=== PATIENT | male | born 1965 | race Caucasian/White ===

== ENCOUNTER 2023-08-05 12:19 | Outpatient (OUT) | payer OTHER, SELFPAY ==
--- NOTE | 2023-08-05 12:26 | XR_ITS ---
The [address] [address] Patient Name: TRAY MEZA MRN: [id number] date: 1965 Sex: M Assigned Patient Location: [facility] Current Patient Location: [facility] Accession/Order Number: [id number] Exam Date: 08/05/2023 12:35 Report Date: 08/05/2023 12:58 At the request of: SYED WILLINGHAM Procedure: XR lumbar spine 2-3V EXAMINATION: XR thoracic spine 3V, XR lumbar spine 2-3V HISTORY: compression fracture of thoracic vertebrae COMPARISON: MRI 09/08/2022 FINDINGS: BONES: Stable anterior wedging T8-T9 and T12 vertebral bodies. Moderate diffuse degenerative spondylosis and facet osteoarthropathy throughout the thoracic and lumbar spine. No new fracture or spondylolisthesis DISC SPACES: Normal. No significant disc height narrowing, subluxation, or endplate abnormality. PARASPINOUS: Negative. No paraspinous abnormality is seen. OTHER: Moderate atherosclerosis. XR/XR lumbar spine 2-3V IMPRESSION: Moderate degenerative changes Stable wedge compression fractures of multiple thoracic vertebral bodies Electronically authenticated by: ROLY JAMA Date: 08/05/2023 12:58
--- NOTE | 2023-08-05 12:26 | XR_ITS ---
The [address] [address] Patient Name: TRAY MEZA MRN: [id number] date: 1965 Sex: M Assigned Patient Location: [facility] Current Patient Location: [facility] Accession/Order Number: [id number] Exam Date: 08/05/2023 12:35 Report Date: 08/05/2023 12:58 At the request of: SYED WILLINGHAM Procedure: XR thoracic spine 3V EXAMINATION: XR thoracic spine 3V, XR lumbar spine 2-3V HISTORY: compression fracture of thoracic vertebrae COMPARISON: MRI 09/08/2022 FINDINGS: BONES: Stable anterior wedging T8-T9 and T12 vertebral bodies. Moderate diffuse degenerative spondylosis and facet osteoarthropathy throughout the thoracic and lumbar spine. No new fracture or spondylolisthesis DISC SPACES: Normal. No significant disc height narrowing, subluxation, or endplate abnormality. PARASPINOUS: Negative. No paraspinous abnormality is seen. OTHER: Moderate atherosclerosis. XR/XR thoracic spine 3V IMPRESSION: Moderate degenerative changes Stable wedge compression fractures of multiple thoracic vertebral bodies Electronically authenticated by: ROLY JAMA Date: 08/05/2023 12:58
== END 2023-08-05 12:20 | disposition home or self-care (01) ==
PROVIDERS: PCP Family Medicine; Visit Provider Family Medicine
DX: S22.000A Wedge compression fracture of unspecified thoracic vertebra, initial encounter for closed fracture (principal); M47.814 Spondylosis without myelopathy or radiculopathy, thoracic region; M51.34 Other intervertebral disc degeneration, thoracic region; M51.36 Other intervertebral disc degeneration, lumbar region
CPT/HCPCS: 72072; 72100

== ENCOUNTER 2023-10-10 16:35 | Outpatient (REF) | payer OTHER, SELFPAY ==
--- OUTSIDE RECORDS SUMMARY | 2023-10-10 16:57 | XMS_ITS | CCD ---
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 Name Role Phone Syed Willingham Primary Care Unavailable Vicente Morel Attending Unavailable Vicente Morel Admitting Unavailable HOY ., DR LYNCH Primary Care Unavailable LAKSHMIPATHY ., NARENDRANATH Admitting Ana vailable LAKSHMIPATHY ., NARHARPREET Consulting Ana vailable LAKSHMIPATHY ., NARHARPREET Attending Ana vailable HOY ., DR LYNCH Primary Care Unavailable HOY ., DR LYNCH Consulting Unavailable HOY ., DR LYNCH Attending Unavailable HOY ., DR LYNCH Admitting Unavailable ASHFIELD, DR ROLY Rothman Consulting Unavailable HOY ., DR LYNCH Primary Care Unavailable HOY ., DR LYNCH Consulting Unavailable HOY ., DR LYNCH Attending Unavailable HOY ., DR LYNCH Admitting Unavailable ZieberAydin Consulting Unavailable HOY ., DR LYNCH Primary Care Unavailable LAKSHMIPATHY ., NARENDTAEATH Consulting Ana vailable LAKSHMIPATHY ., NARENDRANATH Attending Ana vailable LAKSHMIPATHY ., NARENDRANATH Admitting Ana vailable Allergies Allergy Classification Reported Allergen(s) Allergy Type Date of Onset Reaction(s) Facility (1 source) Penicillins Drug allergy (disorder) 03-13-2020 [facility] Repository (1 source) Penicillins Drug allergy (disorder) 12-13-2015 [facility] Repository Problems Active Problems Problem Classification Problem Date Documented Da te Episodic/Chronic Other connective tissue disease (1 source) Other muscle spasm; Translations: [OTHER MUSCLE SPASM] Onset: 10-09-2022 Episodic Other fractures (2 sources) Collapsed vertebra, not elsewhere classified, thoracic region, initial encounter for fracture; Translations: [COLLAPSED VERT NEC THOR INIT ENC] Onset: 09-29-2022 Episodic Other injuries and conditions due to external causes (1 source) Other injury of muscle, fascia and tendon of lower back, initial encounter; Translations: [OTH INJ MUSC FASC TEND LW BACK INIT] Onset: 09-01-2022 Episodic Other screening for suspected conditions (not mental disorders or infectious disease) (1 source) Encounter for screening for malignant neoplasm of prostate; Translations: [ENC SCREEN MALIG NEOPLASM PROSTATE] Onset: 09-01-2022 Episodic Spondylosis; intervertebral disc disorders; other back problems (5 sources) Other dorsalgia; Translations: [Pain in thoracic spine] Onset: 09-09-2022 Episodic Sprains and strains (4 sources) Sprain of ligaments of thoracic spine, initial encounter; Translations: [SPRAIN LIGAMENTS T-SPINE INITIAL] Onset: 09-08-2022 Episodic Substance-related disorders (1 source) Nicotine dependence, cigarettes, uncomplicated; Translations: [NICOTINE DEPEND CIGARETTES UNCOMP] Onset: 09-01-2022 Chronic Unclassified (1 source) R06.02 - Shortness of breath; Translations: [R06.02 - Shortness of breath] Onset: 08-24-2021 Unclassified (2 sources) LOW BACK PAIN, UNSPECIFIED; Translations: [LOW BACK PAIN, UNSPECIFIED] Onset: 09-29-2022 Past or Other Problems Problem Classification Problem Date Documented Da te Episodic/Chronic Unclassified (1 source) LOW BACK PAIN, UNSPECIFIED; Translations: [LOW BACK PAIN, UNSPECIFIED] Onset: 09-23-2022 Results Test Name Value Interpretation Reference Range Facil ity MRI TSPINE WO CONon 09-08-19 MRI TSPINE WO CON EXAMINATION: MRI TSPINE WO CON HISTORY: Pain in thoracic spine COMPARISON: No relevant comparison available. TECHNIQUE: Axial T2; Sagittal T1, T2, and Stir sequences. Images were performed without contrast. FINDINGS: CORD: Normal caliber, contour, and signal intensity. BONES: Normal alignment with no acute fracture or spondylolisthesis. 15% anterior wedge compression fracture of T12. Anterior wedging and fusion T8 and T9. Area of decreased T1 increased T2 signal inferior anterior T6, superior anterior T7 vertebral bodies, Modic 1 changes DISCS: Partial fusion T8-T9. Mild multilevel disc desiccation most significant T7-T8 and T9-T10 PARASPINAL AREA: No visible mass. OTHER: Negative. IMPRESSION: No acute fracture. mild modic 1 inflammatory changes T6-T7 Electronically authenticated by: ROLY JAMA Date: 2022-09-08 18:55 Normal [facility] INSULINon 09-01-2022 Insulin 1.7 uIU/mL Critically low 2.6-24.9 [facility] Comment on above: Performed By: #### I NSULIN #### [facility] [address] [place] [address] Dr. Deedee Pryor TESTOSTERONE, TOTALon 2022 Testosterone [Mass/Vol] 593 ng/dL Normal 264-916 [facility] Comment on above: Result Comment: Adul t male reference interval is based on a population of healthy nonobese males (BMI <30) between 19 and 39 years old. agusto Yoder.al. JCEM 2017,102;0303-5592. PMID: [id number]. Performed By: #### T ESTTOT #### [facility] [address] [place] [address] Dr. Deedee Pryor CBC AUTO DIFFon 08-31-2022 BASO # 0.1 103/ul Normal 0.0-0.1 Comment on above: Performed By: #### C BC #### [facility] [address] [place] [address] Dr. Deedee Pryor Basophils/100 WBC (Bld) 0.9 % Normal 0.2-2.0 Comment on above: Performed By: #### C BC #### [facility] [address] [place] [address] Dr. Deedee Pryor EO # 0.1 103/ul Normal 0.0-0.7 [facility] Comment on above: Performed By: #### C BC #### [facility] [address] [place] [address] Dr. Deedee Pryor Eosinophils/100 WBC (Bld) 1.4 % Normal 0.9-7.0 Comment on above: Performed By: #### C BC #### [facility] [address] [place] [address] Dr. Deedee Pryor Erythrocyte distribution width (RBC) [Ratio] 12.9 % Normal 11.0-15.0 Comment on above: Performed By: #### C BC #### [facility] [address] [place] [address] Dr. Deedee Pryor Hematocrit (Bld) [Volume fraction] 42.9 % Normal 42.0-54.0 Comment on above: Performed By: #### C BC #### [facility] [address] [place] [address] Dr. Deedee Pryor Hemoglobin (Bld) [Mass/Vol] 15.1 g/dL Normal 14.0-18.0 Comment on above: Performed By: #### C BC #### [facility] [address] [place] [address] Dr. Deedee Pryor IG # 0.02 10e3/ul Normal 0.00-0.03 Comment on above: Performed By: #### C BC #### [facility] [address] [place] [address] Dr. Deedee Pryor IG % 0.2 % Normal 0.0-0.5 Comment on above: Performed By: #### C BC #### [facility] [address] [place] [address] Dr. Deedee Pryor LYMPH # 1.2 103/ul Normal 1.2-3.8 Comment on above: Performed By: #### C BC #### [facility] [address] [place] [address] Dr. Deedee Pryor Lymphocytes/100 WBC (Bld) 13.6 % Critically low 20.5-60.0 Comment on above: Performed By: #### C BC #### [facility] [address] [place] [address] Dr. Deedee Pryor MANUAL DIFF REQ NO Normal [facility] Comment on above: Performed By: #### C BC #### [facility] [address] [place] [address] Dr. Deedee Pryor MCH (RBC) [Entitic mass] 31.9 pg Normal 25.9-34.0 Comment on above: Performed By: #### C BC #### [facility] [address] [address] [address] Deedee Pryor MCHC (RBC) [Mass/Vol] 35.2 g/dL Normal 29.9-35.2 Comment on above: Performed By: #### C BC #### [facility] [address] [place] [address] Dr. Deedee Pryor MCV (RBC) [Entitic vol] 90.7 fL Normal 80.0-94.0 Comment on above: Performed By: #### C BC #### [facility] [address] [place] [address] Dr. Deedee Pryor MONO # 0.7 103/ul Normal 0.3-0.8 Comment on above: Performed By: #### C BC #### [facility] [address] [place] [address] Dr. Deedee Pryor Monocytes/100 WBC (Bld) 8.3 % Normal 1.7-12.0 Comment on above: Performed By: #### C BC #### [facility] [address] [place] [address] Dr. Deedee Pryor NEUT # 6.6 103/ul Critically high 1.4-6.5 [facility] Comment on above: Performed By: #### C BC #### [facility] [address] [place] [address] Dr. Deedee Pryor Neutrophils/100 WBC (Bld) 75.6 % Critically high 43.0-75.0 Comment on above: Performed By: #### C BC #### [facility] [address] [place] [address] Dr. Deedee Pryor Platelet mean volume (Bld) [Entitic vol] 8.3 fL Critically low 9.5-13.5 Comment on above: Performed By: #### C BC #### [facility] [address] [place] [address] Dr. Deedee Pryor PLT 286 103/ul Normal 150-450 [facility] Comment on above: Performed By: #### C BC #### [facility] [address] [place], [place] [address] Dr. Deedee Pryor RBC 4.73 106/ul Normal 4.70-6.10 Comment on above: Performed By: #### C BC #### [facility] [address] [place], [place] [address] Dr. Deedee Pryor WBC 8.7 103/ul Normal 4.0-11.0 Comment on above: Performed By: #### C BC #### [facility] [address] [place], [place] [address] LUNG CANCER SCREENINGon 0 08-31-2022 CT LUNG CANCER SCREENING EXAMINATION: CT LUNG CANCER SCREENING HISTORY: Tobacco dependence caused by cigarettes COMPARISON: No relevant comparison available. TECHNIQUE: Axial, Coronal, and Sagittal images were created without the administration of IV contrast material. Dose reduction techniques were achieved by using automated exposure control and/or adjustment of mA and/or kV according to patient size and/or use of iterative reconstruction technique. FINDINGS: LUNGS: No visible pulmonary disease. PLEURA: No mass, effusion, or pneumothorax. VASCULATURE: No abnormality. HAYDEE: No mass or pathologic adenopathy. MEDIASTINUM: No mass or pathologic adenopathy. CARDIAC: No enlargement, pericardial thickening, or significant calcification. AORTA: No aneurysm or dissection. CHEST WALL: No mass or axillary adenopathy BONES: Developmental partial osseous fusion of T9 and T10 vertebral bodies. LIMITED ABDOMEN: No suspicious findings. Limited images of the upper abdomen. OTHER: Negative. IMPRESSION: 1. Lung-RADS Category 1 Negative. No nodules and definitely benign nodules. Continue annual screening with LDCT in 12 months. Electronically authenticated by: AYDIN BASSETT Date: 2022-08-31 15:40 Normal FREE THYROXINE INDEX T7on FTI 2.03 Normal 1.30-4.50 Comment on above: Performed By: #### T 7, LIPID, TSH, URIC, CMP ####[facility] [address] [place], [place] [address]KxDr. Deedee Pryor T3U 35.0 % Normal 33.0-40.0 Comment on above: Performed By: #### T 7, LIPID, TSH, URIC, CMP ####[facility] [address] [address]Dr. Deedee Pryor T4 [Mass/Vol] 5.80 ug/dL Normal 4.50-12.[address] [facility] Comment on above: Performed By: #### T 7, LIPID, TSH, URIC, CMP ####[facility] [address] [address]Dr. Deedee Pryor GLYCOHEMOGLOBIN A1Con 2022 ADA RECOMMENDATION SEE BELOW Normal [facility] Comment on above: Result Comment: ADA RECOMMENDED LIMIT 4.0 - 6.0 ADA THERAPEUTIC TARGET < 7.0 ACTION SUGGESTED > 7.0 Performed By: #### A 1C ####[facility] [address] [place], [place] [address]Dr. Deedee Pryor Glucose [Mass/Vol] 97 mg/dL Normal [facility] Comment on above: Performed By: #### A 1C ####[facility] [address] [place], [place] [address]Dr. Deedee Pryor HbA1c (Bld) [Mass fraction] 5.0 % Normal 4.5-6.2 Comment on above: Performed By: #### A 1C ####[facility] [address] [place], [place] [address]Dr. Deedee Pryor LIPID PROFILEon 08-31-2022 CHOL-HDL RATIO NORM SEE BELOW Normal [facility] Comment on above: Result Comment: 3.3 - 4.4 LOW RISK 4.4 - 7.1 AVERAGE RISK 7.1 - 11.0 MODERATE RISK >11.0 HIGH RISK Performed By: #### T 7, LIPID, TSH, URIC, CMP ####[facility] [address] [place], [place] [address]Dr. Deedee Pryor Cholesterol [Mass/Vol] 183 mg/dL Normal <=200 Comment on above: Performed By: #### T 7, LIPID, TSH, URIC, CMP ####[facility] [address] [id number]. Deedee Pryor Cholesterol in HDL [Mass/Vol] 123 mg/dL Critically high 40-60 [facility] Comment on above: Performed By: #### T 7, LIPID, TSH, URIC, CMP ####[facility] [address] [id number]. Deedee Pryor Cholesterol in LDL [Mass/Vol] 52.0 mg/dL Normal [facility] Comment on above: Performed By: #### T 7, LIPID, TSH, URIC, CMP ####[facility] [address] [id number]. Deedee Pryor Cholesterol.total/Cho lesterol in HDL [Mass ratio] 1.5 {ratio} Normal [facility] Comment on above: Performed By: #### T 7, LIPID, TSH, URIC, CMP ####[facility] [address] [id number]. Deedee Pryor HDL NORMAL > or = 60 mg/dl - LOW CARDIOVASCULAR RISK <40 mg/dl - HIGH CARDIOVASCULAR RISK Normal Comment on above: Performed By: #### T 7, LIPID, TSH, URIC, CMP ####[facility] [address] [address]Dr. Deedee Pryor LDL CALC NORMAL SEE BELOW Normal [facility] Comment on above: Result Comment: <100 mg/dl OPTIMAL 100 - 129 mg/dl NEAR OR ABOVE OPTIMAL 130 - 159 mg/dl BORDERLINE HIGH 160 - 189 mg/dl HIGH >190 mg/dl VERY HIGH Performed By: #### T 7, LIPID, TSH, URIC, CMP ####[facility] [address] [id number]. Deedee Pryor Triglyceride [Mass/Vol] 40 mg/dL Normal <=150 [facility] Comment on above: Performed By: #### T 7, LIPID, TSH, URIC, CMP ####[facility] [address] [id number]. Deedee Pryor VLDL CALC 8.0 mg/dL Normal Comment on above: Performed By: #### T 7, LIPID, TSH, URIC, CMP ####[facility] [address] [address]Dr. Deedee Pryor PROF 14(COMP METB)on 023 Albumin [Mass/Vol] 4.4 g/dL Normal 3.4-5.[address] [facility] Comment on above: Performed By: #### T 7, LIPID, TSH, URIC, CMP ####[facility] [address] [address]Dr. Deedee Pryor Albumin/Globulin [Mass ratio] 1.2 {ratio} Normal Comment on above: Performed By: #### T 7, LIPID, TSH, URIC, CMP ####[facility] [address] [place], [place] [address]Dr. Deedee Pryor ALP [Catalytic activity/Vol] 91 U/L Normal 46-116 Comment on above: Performed By: #### T 7, LIPID, TSH, URIC, CMP ####[facility] [address] [place], [place] [address]Dr. Deedee Pryor ALT [Catalytic activity/Vol] 26 U/L Normal 16-63 Comment on above: Performed By: #### T 7, LIPID, TSH, URIC, CMP ####[facility] [address] [place], [place] [address]Dr. Deedee Pryor Anion gap [Moles/Vol] 17.0 mmol/L Normal [facility] Comment on above: Performed By: #### T 7, LIPID, TSH, URIC, CMP ####[facility] [address] [place], [place] [address]Dr. Deedee Pryor AST [Catalytic activity/Vol] 29 U/L Normal 15-37 Comment on above: Performed By: #### T 7, LIPID, TSH, URIC, CMP ####[facility] [address] [place], [place] [address]Dr. Deedee Pryor Bilirubin [Mass/Vol] 0.5 mg/dL Normal 0.2-1.0 Comment on above: Performed By: #### T 7, LIPID, TSH, URIC, CMP ####[facility] [address] [place] [address]Dr. Deedee Pryor Calcium [Mass/Vol] 9.3 mg/dL Normal 8.5-10.1 [facility] Comment on above: Performed By: #### T 7, LIPID, TSH, URIC, CMP ####[facility] [address] [place], [place] [address]Dr. Deedee Pryor Chloride [Moles/Vol] 93 mmol/L Critically low 98-107 [facility] Comment on above: Performed By: #### T 7, LIPID, TSH, URIC, CMP ####[facility] [address] [place], [place] [address]Dr. Deedee Pryor CO2 [Moles/Vol] 27.8 mmol/L Normal 21.0-32.0 [facility] Comment on above: Performed By: #### T 7, LIPID, TSH, URIC, CMP ####[facility] [address] [place], [place] [address]Dr. Deedee Pryor Creatinine [Mass/Vol] 0.81 mg/dL Normal 0.70-1.30 [facility] Comment on above: Performed By: #### T 7, LIPID, TSH, URIC, CMP ####[facility] [address] [place], [place] [address]Dr. Deedee Pryor EGFR-AF ISRAELI >60 Normal >=60 [facility] Comment on above: Performed By: #### T 7, LIPID, TSH, URIC, CMP ####[facility] [address] [place], [place] [address]Dr. Deedee Pryor EGFR-NON AF ISRAELI >60 Normal >=60 [facility] Comment on above: Performed By: #### T 7, LIPID, TSH, URIC, CMP ####[facility] [address] [place], [place] [address]Dr. Deedee Pryor Globulin (S) [Mass/Vol] 3.7 g/dL Normal [facility] Comment on above: Performed By: #### T 7, LIPID, TSH, URIC, CMP ####[facility] [address] [place], [place] [address]Dr. Deedee Pryor Glucose [Mass/Vol] 92 mg/dL Normal 74-106 [facility] Comment on above: Performed By: #### T 7, LIPID, TSH, URIC, CMP ####[facility] [address] [address]Dr. Deedee Pryor Potassium [Moles/Vol] 4.8 mmol/L Normal 3.5-5.1 [facility] Comment on above: Performed By: #### T 7, LIPID, TSH, URIC, CMP ####[facility] [address] [address]Dr. Deedee Pryor Protein [Mass/Vol] 8.1 g/dL Normal 6.4-8.2 [facility] Comment on above: Performed By: #### T 7, LIPID, TSH, URIC, CMP ####[facility] [address] [place] [address]Dr. Deedee Pryor Sodium [Moles/Vol] 133 mmol/L Critically low 136-145 [facility] Comment on above: Performed By: #### T 7, LIPID, TSH, URIC, CMP ####[facility] [address] [address]Dr. Deedee Pryor Urea nitrogen [Mass/Vol] 7.0 mg/dL Normal 7.0-18.0 Comment on above: Performed By: #### T 7, LIPID, TSH, URIC, CMP ####[facility] [address] [address]Dr. Deedee Pryor Urea nitrogen/Creatinine [Mass ratio] 8.6 mg/mg Normal [facility] Comment on above: Performed By: #### T 7, LIPID, TSH, URIC, CMP ####[facility] [address] [address]Dr. Deedee Pryor TSHon 08-31-2022 TSH 0.976 uIU/mL Normal 0.358-3.[address] [facility] Comment on above: Performed By: #### T 7, LIPID, TSH, URIC, CMP #### [facility] [address] [address] [address] Deedee Pryor URIC ACID SERUMon 08-31-2022 Urate [Mass/Vol] 3.9 mg/dL Normal 3.5-7.2 [facility] Comment on above: Performed By: #### T 7, LIPID, TSH, URIC, CMP ####[facility] [address] [place], [place] [address]MjWestley Pryor XR LSPINE MIN 4 VIEWSon 08-03 XR LSPINE MIN 4 VIEWS EXAMINATION: XR LSPINE MIN 4 VIEWS HISTORY: Muscle and tendon injury ; acute low back pain after falling down steps COMPARISON: XR chest 04/30/2018 FINDINGS: BONES: Slight anterior wedging of T12 vertebral body. Normal height and alignment of the lumbar vertebral bodies. No significant facet arthropathy. DISC SPACES: No significant disc height narrowing, subluxation, or endplate abnormality. PARASPINOUS: Negative. No paraspinous abnormality is seen. OTHER: Negative. IMPRESSION: 1. Slightly decreased height of T12 vertebral body compared to adjacent levels and compared to the 04/30/2018 CHEST XRAY suggesting compression fracture. No increased trabecular density suggesting this may be chronic. 2. Unremarkable lumbar spine. Electronically authenticated by: AYDIN BASSETT Date: 2022-08-31 09:32 Normal [facility] Encounters Encounter Date Encounter Type Care Provider Facility Start: 10-05-2022 End: 10-06-[address] SYED WILLINGHAM . Facility:[facility] Start: 09-23-2022 End: 09-24-[address] SYED WILLINGHAM . Facility[facility] Start: 09-08-2022 End: 09-09-[address] SYED WILLINGHAM . Facility[facility] Start: 09-01-2022 Encounter for genera l adult medical examination without abnormal findings DR SYED WILLINGHAM . [facility] Start: 08-31-2022 End: 09-01-[address] SYED WILLINGHAM . Facility:[facility] Start: 08-31-2022 End: 09-01-2022 Encounter for general adult medical examination without abnormal findings DR SYED WILLINGHAM . Facility:[facility] Start: 08-24-2021 End: 08-24-2021 Emergency department patient visit Syed Willingham Facility:[facility] Procedures Date Procedure Procedure Detail Performing Clinician Start: 08-31-[address] ANJALI WILLINGHAM . Comment on above: Performed By: #### P [facility] #### [facility] [address] [address] [address] Deedee Pryor Payers Date Payer Category Payer Self-pay 2021 Unknown [id number] 1966 Unknown [id number] 2.16.84 [id number] 1966 Unknown [id number] 2.16.84 [id number] 1966 Unknown [id number] 2.16.84 [id number] 1966 Unknown [id number] 2.16.84 [id number] 1959 Unknown [id number] Unknown [id number] [id number] Consultation note 10-05-2022 Note Date & Type Note Facility 10-05-2022 Note CONSULTATION CONSULTATION DATE: 10/05/2022 TO: Dr. Willingham HISTORY OF PRESENT ILLNESS: Patient returns today complaining of 0-5/10 in his mid back area. He reports the pain as being sharp and intermittent. He reports, over the last few days, his pain has markedly improved; however, prior to that, he did complain of moderate acceleration of his pain symptoms. However, he continues to use baclofen 10 mg t.i.d, diclofenac 50 mg b.i.d. He reports it does seem to be helping his pain symptoms. His pain is rated as 5-7/10 pain again, prior to today. Today, it is rated 0-5/10 pain, described as sharp in character, increasing with activities such as lifting maneuvers, pushing, pulling maneuvers, standing ,walking and performing transitioning maneuvers. He feels most comfortable in the semi-recumbent position. EXAM: Notable for the patient having no significant myofascial spasm of the lumbothoracic paravertebral muscles. No appreciable percussion tenderness of the spinous processes in the thoracolumbar area. Range of motion appeared to be adequate and within normal limits. IMPRESSION: At this point, his pain from his compression fracture at T12 appears to be somewhat stable. His spasm is markedly improved compared to last visit. RECOMMENDATIONS: I have asked him to consider physical therapy for strengthening and to continue with baclofen and diclofenac on a p.r.n. basis. We will see him back in the office on an as needed basis. Again, his pain from his compression fracture at T12 appears to be stable on today's visit. [facility] Consultation note 09-23-2022 Note Date & Type Note Facility 09-23-2022 Note PAIN MANAGEMENT CONS ULTATION CONSULTATION DATE: 09/23/2022 TO: Dr. Willingham CHIEF COMPLAINT: Severe mid lumbar, upper lumbar pain. HISTORY OF PRESENT ILLNESS: For list of the past medical/surgical history questionnaire is available upon request. He reports having the pain since August of this year. He reports the pain occurred spontaneously until September 23, at which point he sustained a fall. MRI was procured and T12 compression fracture was noted. Since that time, he reports the pain is rated at 5-7/10 pain, sharp in character. It seems to be increased mainly with lifting maneuvers and performing transitioning maneuvers. Denies any changes in bowel and habits or new sensorimotor changes in the lower extremities. EXAM: His examination is notable for the patient having no clinical sign consistent with radiculopathy or myelopathy involving his lower extremities. The patient did have percussion tenderness overlying the T12 spinous processes, significant myofascial spasm along the lumbar paravertebral muscles occurring bilaterally. IMPRESSION: Patient with pain secondary to T12 compression fracture. At this patient, he reports that he would like to avoid undergoing kyphoplasty at this time. RECOMMENDATIONS: At this point, I have recommended the trial of baclofen 10 mg pills with half a pill to one pill t.i.d. I have given him a prescription for diclofenac sodium 50 mg b.i.d., will increase as tolerated, and may consider proceeding with a T12-L1 epidural injection, pending his response with change of medication. He is to follow up with our office by telephone in one week's time to update us on his response to change in medication. [facility] Summary Purpose Family History No Family History Records FoundNo Family History Records Found Advance Directives No Advanced Directives Records FoundNo Advanced Directives Records Found Additional Source Comments (unrecognized sect ion and content) No Status Records FoundNo Status Records Found INFORMATION SOURCE (unrecogn ized section and content) DATE CREATED AUTHOR 09/04/2022 [facility] DATE CREATED AUTHOR AUTHOR'S PAOLA RIZO 11/08/2022 [facility] FOR RECORDS PERTAINING TO PATIENTS WHO ARE OR HAVE BEEN ENROLLED IN A CHEMICAL DEPENDENCY/SUBSTANCEABUSE PROGRAM, SOME INFORMATION MAY BE OMITTED. This clinical summary was aggregated from multiple sources. Caution should be exercised in using it in the provision of clinical care. This summary normalizes information from multiple sources, and as a consequence, information in this document may materially change the coding, format and clinical context of patient data. In addition, data may be omitted in some cases. CLINICAL DECISIONS SHOULD BE BASED ON THE PRIMARY CLINICAL RECORDS. [facility] [employer] provides no warranty or guarantee of the accuracy or completeness of information in this document.
[2023-10-11 12:19] LABS: C. Difficile PCR NEGATIVE (NEGATIVE)
== END 2023-10-10 16:36 | disposition home or self-care (01) ==
LOC: LAB 16:35
PROVIDERS: PCP Family Medicine; Visit Provider Family Medicine
DX: R19.7 Diarrhea, unspecified (principal)
CPT/HCPCS: 87045; 87046; 87427; 87493

== ENCOUNTER 2024-06-03 17:08 | Emergency (ER) | payer OTHER, SELFPAY ==
[2024-06-03] VITALS (9 sets, daily range): BP systolic 125; BP diastolic 89; PULSE 65–76; TEMP 36.5–36.6; O2SAT 95–96; BMI 21.1
--- OUTSIDE RECORDS SUMMARY | 2024-06-03 17:14 | XMS_ITS | CCD ---
Author Organization [facility] CliniSyid Care Team Providers Care Die Cast Supervisor Name Role Phone Syed Soto Primary Care Unavailable Vicente Morel Attending Unavailable Vicente Morel Admitting Unavailable HOY ., DR LYNCH Primary Care Unavailable LAKSHMIPATHY ., NARENDRILEY Admitting Ana vailable LAKSHMIPATHY ., NARHARPREET Consulting Ana vailable LAKSHMIPATHY ., LUISITO Attending Ana vailable HOY ., DR LYNCH Primary Care Unavailable HOY ., DR LYNCH Consulting Unavailable HOY ., DR LYNCH Attending Unavailable HOY ., DR LYNCH Admitting Unavailable [place], DR ROLY Rothman Consulting Unavailable HOY ., DR LYNCH Primary Care Unavailable HOY ., DR LYNCH Consulting Unavailable HOY ., DR LYNCH Attending Unavailable HOY ., DR LYNCH Admitting Unavailable Aydin Abad Consulting Unavailable HOY ., DR LYNCH Primary Care Unavailable LAKSHMIPATHY ., LUISITO Consulting Ana vailable LAKSHMIPATHY ., LUISITO Attending Ana vailable LAKSHMIPATHY ., LUISITO Admitting Ana vailable Syed Soto Primary Care Physician Cl OG R Attending Unavailable NILL, Cl R Attending Unavailable NILL, Cl R Referring Unavailable NILL, Cl R Attending Unavailable NILL, Cl R Admitting Unavailable Allergies Allergy Classification Reported Allergen(s) Allergy Type Date of Onset Reaction(s) Facility (1 source) Penicillins Drug allergy (disorder) 03-13-2020 [facility] Repository (1 source) Penicillins Drug allergy (disorder) 12-13-2015 [facility] Repository (4 sources) Penicillin; Translations: [penicillin] Drug Allergy [facility] [place] Medications Current Medications Medication Drug Class(es) Dates Sig (Normalized) Sig (Original) dicyclomine hydrochloride 20 mg oral tablet (1 source) Anticholinergic Start: 11-18-2023 take 1 tablet by mouth three times daily dicyclomine 20 mg Tab 20 mg = 1 tab(s), Oral, TID, Refills(s) 0 Start Date: 11/18/23 Status: Ordered metoprolol tartrate 25 mg oral tablet (2 sources) beta-Adrenergic Masha Start: 12-02-2023 take 1 tablet by mouth once daily Lopressor 25 mg oral tablet 25 mg = 1 tab(s), Oral, Daily, Refills(s) 0, High blood pressure Start Date: 12/02/23 Status: Ordered naproxen 500 mg oral tablet (3 sources) Nonsteroidal Anti-inflammatory Drug Start: 11-14-2023 take 1 tablet by mouth twice daily naproxen 500 mg Tab 500 mg = 1 tab(s), Oral, BID, Refills(s) 0, Pain Start Date: 11/14/23 Status: Ordered Problems Active Problems Problem Classification Problem Date Documented Da te Episodic/Chronic Alcohol-related disorders (3 sources) Alcoholism 11-14-2023 Chronic Anxiety disorders (3 sources) Anxiety 11-14-2023 Chronic Cardiac dysrhythmias (3 sources) Sinus tachycardia 11-14-2023 Episodic Noninfectious gastroenteritis (1 source) Lymphocytic colitis; Translations: [Lymphocytic colitis] Onset: 12-15-2023 Chronic Other connective tissue disease (1 source) Other muscle spasm; Translations: [OTHER MUSCLE SPASM] Onset: 10-09-2022 Episodic Other fractures (2 sources) Collapsed vertebra, not elsewhere classified, thoracic region, initial encounter for fracture; Translations: [COLLAPSED VERT NEC THOR INIT ENC] Onset: 09-29-2022 Episodic Other gastrointestinal disorders (5 sources) Diarrhea; Translations: [Diarrhea, unspecified] Onset: 11-18-2023 Episodic Other gastrointestinal disorders (4 sources) Altered bowel function; Translations: [Change in bowel habit] Onset: 11-18-2023 Episodic Other injuries and conditions due to [...] SCREEN MALIG NEOPLASM PROSTATE] Onset: 09-01-2022 Episodic Residual codes; unclassified (3 sources) Amnesia 11-14-2023 Episodic Residual codes; unclassified (3 sources) Insomnia 11-14-2023 Episodic Spondylosis; intervertebral disc disorders; other back [...] Translations: [LOW BACK PAIN, UNSPECIFIED] Onset: 09-29-2022 Unclassified (1 source) Lymphocytic colitis 12-15-2023 Past or Other Problems Problem Classification Problem Date Documented Da te Episodic/Chronic Unclassified (1 source) LOW BACK PAIN, UNSPECIFIED; Translations: [LOW BACK PAIN, UNSPECIFIED] Onset: 09-23-2022 Results Test Name Value Interpretation Reference Range Facility General Surgery Office/Clini c Noteon 12-15-2023 General Surgery Office/Clinic Note Chief Complaint post operative follow up HPI Staff 13 day post operative follow up post colonoscopy with multiple biopsies. Reports diarrhea is unchanged. History of Present Illness s/p colonoscopy to terminal ileum with random biopsies duet to frequent loose stools; stools unchanged; pathology with normal terminal ileum; all colon biopsies with evidence of lymphocytic colitis, patient takes Naproxen daily; also smokes daily. Review of Systems ROS - Provider Constitutional: no fever, no sweats, no weight loss. Eyes: no glasses, no blurred vision, no visual loss. ENMT: no dentures, no hoarseness, no swallowing difficulties, no hearing loss, no ear infection(s), no nose bleeds. Cardiovascular: normal blood pressure, no chest pain, regular heartbeat, no heart murmur. Respiratory: no shortness of breath, no cough, no asthma, no wheezing. Gastrointestinal: no nausea, no vomiting, no diarrhea, no constipation, no blood in stool, no change in bowel habits, no abdominal pain, no hepatitis. Genitourinary: no kidney stones, no urine infection, no dysuria. Musculoskeletal: no pain, no weakness. Skin: no changing moles, no rash, no skin lumps. Neurologic: no seizures, no epilepsy, no headache. Psychiatric: no emotional or psychiatric problem. Heme/Lymph: no bleeding problems, no anemia, no blood clots, no transfusions. Allergy/Immunologic: no swollen lymph nodes/glands, no IV drug abuse. Other: Additional ROS info: Except as noted in the above Review of Systems and in the History of Present Illness, all other systems have been reviewed and are negative or noncontributory. Assessment/Plan 1. Lymphocytic colitis (K52.832: Lymphocytic colitis) recommend discontinue Naproxen and all NSAIDs; ideally quitting smoking; use Imodium over the counter to help with stools; if no improvement in several weeks, may need Budesonide; will likely refer to GI; call with problems/questions, or if no improvement. f/u screening colonoscopy in 10 years. Follow-up No qualifying data available Problem List/Past Medical History Ongoing Alcoholism Anxiety Change in bowel habits Frequent loose stools Insomnia Lymphocytic colitis Memory loss Sinus tachycardia Historical No qualifying data Procedure/Surgical History Colonoscopy (12/02/2023), Arthroscopy of knee, Simple dental extraction, Tonsillectomy, Vasectomy. Medications Lopressor 25 mg oral tablet, 25 mg= 1 tab(s), Oral, Daily naproxen 500 mg Tab, 500 mg= 1 tab(s), Oral, BID Allergies penicillin Social History Alcohol Current, Beer, Daily, 11/18/2023 Substance Abuse - Denies Substance Abuse, 11/18/2023 Tobacco 10 or more cigarettes (1/2 pack or more)/day in last 30 days Tobacco Use:. Smokeless tobacco user within last 30 days Smokeless Tobacco Use:. Cigarettes, Oral, 0.5 per day. Started age 18.0 Years. Yes, 11/18/2023 Family History Acute myocardial infarction: Father. COPD: Mother. Heart disease: Father. Hypertension: Sister. Hypothyroidism: Sister. Immunizations Vaccine Date Status SARS-CoV-2 (COVID-19) mRNA BNT-162b2 wvx 08/29/2021 Recorded SARS-CoV-2 (COVID-19) mRNA BNT-162b2 vax 08/08/2021 Recorded Normal [facility] Comment on above: Result Comment: Elec tronically Signed By: LENKA ANTOINE, Cl Schmidt\.br\Date and Time Signed: 12/15/23 16:33 EDT Postoperative Documentson Postoperative Documents [id number]. 00TIFF Normal [facility] IntraOperative Documentson 0 12-06-2023 IntraOperative Documents [id number] .00TIFF Normal [facility] Consenton 12-05-2023 Consent [id number]. 00TIFF Normal [facility] Discharge Instructionson Discharge Instructions [id number]. 00TIFF Normal [facility] Main OR Intraoperative Recor don 12-05-2023 Main OR Intraoperative Record IntraOp Document Type FT Summary Primary Physician: Cl OG MD Finalized Date/Time: 12/05/23 07:49:06 Pt. Name: SUSANATRAY/Sex: 1965 Male Med Rec #: [id number] Physician: Cl OG MD Financial #: [id number] Pt. Type: O Room/Bed: / Admit/Disch: 12/02/23 06:44:54 - 12/02/23 23:59:59 Institution: Case Times FT Entry 1 Patient Times In Room 12/02/23 07:48:00 Out Room 12/02/23 08:18:00 Procedure Times Start 12/02/23 07:53:00 Stop 12/02/23 08:09:00 Anesthesia Times Start 12/02/23 07:48:00 Stop 12/02/23 08:18:00 Time at [facility] 12/02/23 07:57:00 Last Modified By: Emilio CESPEDES, Jordy Morlaes 12/02/23 08:19:54 General Comments: 12/05/2023 Chart opened for charge review per Nima Burt RN. [place] Case Attendance FT Entry 1 Entry 2 Entry 3 Case Attendee Keith Helton Micala E NILL MD, Cl Schmidt Role Performed Anesthesiologist Scrub - Primary Surgeon - Primary Cns Time In 12/02/23 07:48:00 12/02/23 07:48:00 12/02/23 07:48:00 Time Out 12/02/23 08:18:00 12/02/23 08:18:00 12/02/23 08:18:00 Procedure COLONOSCOPY(.) COLONOSCOPY(.) COLONOSCOPY(.) Comments Dr. Dewitt supervising case Last Modified By: Emilio RN, Jordy Jhaveri RN, Jordy Sommers RN 12/02/23 08:19:55 12/02/23 08:19:55 12/02/23 08:19:55 Entry 4 Case Attendee Jordy Jhaveri RN Role Performed Transportation Associate - Primary Time In 12/02/23 07:48:00 Time Out 12/02/23 08:18:00 Procedure COLONOSCOPY(.) Comments Last Modified By: Jordy Jhaveri RN 12/02/23 08:19:55 Perioperative Protocols FT Pre-Care Text: Implements protective measures prior to operative or invasive procedure, confirms identity before the operative or invasive procedure, verifies operative procedure, surgical site, and laterality Entry 1 Procedure(s) COLONOSCOPY(.) Patient Identity Birthday, ID Band Verified (select at Check, Patient least 2): Participation Consents / H and P Anesthesia Consent, Operative Site N/A Verified HandP, Surgery/Procedure Marking Verified Consent Surgical Site No Laterality Verified n/a Verified Procedure Verified Yes Correct Patient Yes Position Verified Availability Equipment, Medication Prep Dry n/a Verified (If Applicable) PreOp Antibiotic No Time Out Keith Helton, Given Participants Cherri Manzo NILL MD, Emilio Fontenot RN, Morgan E Time Out Complete 12/02/23 07:50:00 Outcomes Met? Yes Last Modified By: Jordy Jhaveri RN 12/02/23 07:52:44 Post-Care Text: The patient is free from signs and symptoms of injury caused by extraneous objects Allergy Information FT Pre-Care Text: Verifies allergies Entry 1 Allergies Reviewed? Yes Allergies Reviewed Self/Patient With Outcomes Met? Yes Last Modified By: Jordy Jhaveri RN 12/02/23 07:52:51 Post-Care Text: The patient received appropriate medication(s) safely administered during the perioperative period Surgical Procedures FT Entry 1 Procedure Description Procedure COLONOSCOPY Modifiers . Surgeon Description Colonoscopy with terminal ileum biopsy, ascending colon biopsy, descending colon biopsy, sigmoid colon biopsy, and rectal biopsy Primary Procedure Yes Primary Surgeon Cl OG MD 12/02/23 07:53:00 Stop 12/02/23 08:09:00 Anesthesia Type General Surgical Service General Wound Class 2 - Clean-Contaminated Last Modified By: Jordy Jhaveri RN 12/02/23 08:10:04 General Case Data FT Pre-Care Text: Classifies surgical wound, implements aseptic technique, initiates traffic control Entry 1 Case Information OR ENDO 1 FT Case Level Level 2 Wound Class 2 - Clean-Contaminated Specialty General ASA Class 3 Preop Diagnosis Loose stools Postop Same As Preop No Postop Diagnosis Normal colonoscopy Outcomes Met? Yes Last Modified By: Jordy Jhaveri RN 12/02/23 08:19:47 Post-Care Text: The patient is free from signs and symptoms of infection Skin Assessment (Pre Procedure) FT Pre-Care Text: Implements protective measures to prevent skin/ tissue injury due to thermal or mechanical sources Evaluates for signs and symptoms of physical injury to skin and tissue Entry 1 Skin Integrity Dry, Warm Skin Abnormality No Outcomes Met? Yes Last Modified By: Jordy Jhaveri RN 12/02/23 07:53:19 Post-Care Text: The patient is free from signs and symptoms of injury caused by extraneous objects Patient Positioning FT Pre-Care Text: Identifies physical alterations that require additional precautions for procedure-specific positioning, verifies presence of prosthetics or corrective devices, positions the patient, evaluates the patient for signs and symptoms of injury as a result of positioning Entry 1 Procedure COLONOSCOPY(.) Body Position Lateral, right side up Feet Uncrossed? Yes Left Arm Position Resting at Side Right Arm Position Resting at Side Left Leg Position Extended Right Leg Position (more content not included)... Normal [facility] Colonoscopy Procedure Report on 12-02-2023 Colonoscopy Procedure Report Patient: TRAY MEZA Age: 58 years Sex: Male : 1965 Associated Diagnoses: None Author: Cl OG MD Pre-Procedure Procedure Date 12/02/2023 08:15:00 . Procedure Type: Colonoscopy with biopsy. Procedure provider Performed by Cl OG MD. Referred by Syed Soto MD. Current history and physical Documented on chart. Colorectal neoplasm risk assessment Average risk. Informed Consent After discussing the rationale, risks and benefits, and alternatives to this procedure, the patient provided signed consent for the procedure. Pre-procedure diagnosis: Diarrhea, clinically significant. ASA Classification: Class II. . Monitoring: See anesthesia record. . Procedure The procedure was performed in the hospital. See anesthesia record for sedation given during procedure. Rectal exam was performed and was normal. The patient was positioned starting in the left lateral decubitus position. Endoscope type used was an adult-size. The endoscope was lubricated then introduced through the anus. The scope was advanced to the terminal ileum. The ileum was intubated 5 cm The terminal ileum was photographed The ileocecal valve was photographed The appendiceal orifice was photographed No difficulties encountered during the procedure. The bowel preparation quality was good and was adequate (see polyps greater than or equal to 6 millimeters). The patient tolerated the procedure well. Findings The bowel was normal throughout the extent examined. random biopsis obtained of terminal ileum, ascending, descending and sigmoid colon, rectum. Images Procedure images: ileocecal valve terminal ileum appendiceal orifice . Post-Procedure Complications: none. Estimated blood loss: 1 milliliters. Specimens: sent to pathology. Devices/ implants: none left in place. Impression and Plan Diagnosis: Frequent loose stools (VOH02-BG R19.7, Discharge, Medical). Recommendations: Repeat colonoscopy:: In 10 years, Depends on pathology . Follow-up:: Await biopsy results in 3-5 days. Diet:: High fiber. Medication resumption:: Continue current medications. Return to activities:: After 24 hours. Education and Follow-up: Counseled: Family. [facility] Comment on above: Other Comment: Yuki pedraza Attachment - attachment storage system not supported [id number] Can be viewed in source system Missing Attachment - attachment storage system not supported [id number] Can be viewed in source system Missing Attachment - attachment storage system not supported [id number] Can be viewed in source system Consent for Treatmenton Consent for Treatment [id number] 0TIFF [facility] Discharge Instructionson Discharge Instructions TRAY MEZA :1965 Visit Date:12/02/2023 Inpatient Discharge Instructions Your Care Team Admitting Physician - Cl OG MD Referring Physician - Cl OG MD Reason for Your Visit LOOSE STOOL Your Diagnosis Frequent loose stools Tests Performed Pathology Tissue Exam -- Results Pending -- Please visit your patient portal for your results or contact your primary care physician. This Is Your Medications List metoprolol (Lopressor 25 mg oral tablet) naproxen (naproxen 500 mg Tab) Procedure History Arthroscopy of knee, Simple dental extraction, Tonsillectomy, Vasectomy. Discharge Vitals Temperature (Temporal Artery) 36.7 ?C Heart Rate (Monitored) 73 Respiratory Rate 17 Blood Pressure 99/65 Height 170 cm Weight 63.6 kg BMI 22.01 What to do next Instructions From Your Doctor Event Name Event Result Discharge Activity Resume normal activities in 24 hours, Arrange for a responsible adult supervision for 24 hours Discharge Restrictions No driving for 24 hrs, Do not operate machinery or tools, Do not make important decisions for 24 hours, Do not drink alcoholic beverages for 24 hours Discharge Diet(s) Other: high fiber Call Your Doctor For Persistent or heavy bleeding, Temperature above 101.5 degrees, Redness, swelling, or pus at operative site, Severe pain at the operative site, Persistent vomiting Discharge Instructions Discharge Instructions New Follow Up Appointments after Discharge Follow Up with Cl OG When: Within 7 to 10 days Where: [place] [address], [address] [address]- Business (1) Medications What How Much When Instructions Next Dose Unchanged metoprolol (Lopressor 25 mg oral tablet) 1 Tablets By Mouth Every day Unchanged naproxen (naproxen 500 mg Tab) 1 Tablets By Mouth 2 times a day Test Results No qualifying data available. Allergies penicillin Problems Ongoing - Any problem that you are currently receiving treatment for. Alcoholism Anxiety Change in bowel habits Frequent loose stools Insomnia Memory loss Sinus tachycardia Education Materials Colonoscopy Care After Surgery Please read the instructions outlined below and refer to this sheet in the next few weeks. These discharge instructions provide you with general information on caring for yourself after you leave the hospital. Your doctor may also give you specific instructions. While your treatment has been planned according to the most current medical practices available, unavoidable complications occasionally occur. If you have any problems or questions after discharge, please call your doctor. ACTIVITY You may resume your regular activity, but move at a slower pace for the next 24 hours. Take frequent rest periods for the next 24 hours. Walking will help get rid of the air and reduce the bloated feeling in your abdomen (belly). No driving for 24 hours (because of the anesthesia (medicine) used during the test). You may shower. Do not sign any important legal documents or operate any machinery for 24 hours (because of the anesthesia used during the test). NUTRITION Drink plenty of fluids. You may resume your normal diet as instructed by your doctor. Begin with a light meal and progress to your normal diet. Heavy or fried foods are harder to digest and may make you feel nauseated (sick to your stomach). Avoid alcoholic beverages for 24 hours or as instructed. MEDICATIONS You may resume your normal medications unless your doctor tells you otherwise. WHAT YOU CAN EXPECT TODAY Some feelings of bloating in the abdomen. Passage of more gas than usual. Spotting of blood in your stool or on the toilet paper. FOLLOW-UP Your doctor will discuss the results of your test with you. SEEK IMMEDIATE MEDICAL ATTENTION IF: There is more than a spotting of blood in your stool. There is abdominal distention (your abdomen is swollen). There is vomiting. You have a temperature over 101.5 F. There is abdominal pain or discomfort that is severe or gets worse throughout the day. Common Emergency Awareness Tips IS IT A STROKE? Act FAST and Check for these signs: FACE Does the face look uneven? ARM Does one arm drift down? SPEECH Does their speech sound strange? TIME Call at any sign of stroke Heart Attack Signs Chest discomfort: Most heart attacks involve discomfort in the center of the chest and lasts more than a few minutes, or goes away and comes back. It can feel like uncomfortable pressure, squeezing, fullness or pain. Discomfort in upper body: Symptoms can include pain or discomfort in one or both arms, back, neck, jaw or stomach. Shortness of breath: With or without discomfort. Other signs: Breaking out in a cold sweat, nausea, or lightheaded. Remember, MINUTES DO MATTER. If you experience any of these hear (more content not included)... Normal [facility] Comment on above: Result Comment: Elec tronically Signed By: Edgar CESPEDES, Elsa\.br\Date and Time Signed: 12/02/23 08:19 EDT Inpatient Patient Summaryon 12-02-2023 Inpatient Patient Summary [place] [id number] [facility] Clinical Discharge Instructions PERSON INFORMATION Name: TRAY MEZA [facility]meen [facility] Admitting Physician: Cl OG MD Attending Physician: Cl OG MD PCP: Syed Soto MD Discharge Diagnosis: Frequent loose stools Comment: PATIENT EDUCATION INFORMATION Instructions: Medication Leaflets: Follow up: With: Address: When: Cl OG [address] [place] [address], [address], [place] [address] [facility] () Within 7 to 10 days MEDICATION LIST Medications to Continue with No Changes Other Medications metoprolol (Lopressor 25 mg oral tablet) 1 Tablets By Mouth every day. naproxen (naproxen 500 mg Tab) 1 Tablets By Mouth 2 times a day. Comment: Normal [facility] Main OR PACU I [facility] Main OR PACU I Record PACU Phase I Docum ent Type FT Summary Primary Physician: Cl OG MD Finalized Date/Time: 12/02/23 08:55:35 Pt. Name: SARTHAKTRAY ELISE /Sex: 1965 Male Med Rec #: [id number] Physician: Cl OG MD Financial #: [id number] Pt. Type: O Room/Bed: / Admit/Disch: 12/02/23 06:44:54 - Institution: Case Times PACU I FT Pre-Care Text: Identifies barriers to communication and implements measures to provide psychological support Develops individualized plan of care, and ensures continuity of care Maintains patient's dignity and privacy, and maintains patient confidentiality Identifies and reports philosophical, cultural, and spiritual beliefs and values Identifies individual values and wishes concerning care Implements aseptic technique, and administers prescribed antibiotic therapy and immunizing agents as ordered Evaluates postoperative tissue perfusion Implements thermoregulation measures, and monitors body temperature Evaluates postoperative respiratory status Evaluates postoperative cardiac status Evaluates postoperative neurological status Assesses pain control, collaborated in initiating patient-controlled analgesia and implements alternative methods of pain control Verifies allergies, administers prescribed medications and solutions, evaluates response to medications Entry 1 In PACU I 12/02/23 08:13:00 Discharge from PACU 12/02/23 08:43:00 I Outcomes Met? Yes Last Modified By: Elsa Hernández RN 12/02/23 08:55:16 Post-Care Text: The patient demonstrates knowledge of the expected response to the operative or invasive procedure The patient's care is consistent with the individualized perioperative plan of care The patient's right to privacy is maintained The patient's value system, lifestyle, ethnicity, and culture are considered, respected, and incorporated into the perioperative plan of care The patient participates in decisions affecting his or her perioperative plan of care The patient is free from signs and symptoms of infection The patient has wound/tissue perfusion consistent with or improved from baseline levels established preoperatively The patient is at or returning to normothermia at the conclusion of the immediate postoperative period The patient's respiratory function is consistent with or improved from baseline levels established preoperatively The patient's cardiovascular status is consistent with or improved from baseline levels established preoperatively The patient's cardiovascular status is consistent with or improved from baseline levels established preoperatively The patient demonstrates and/or reports adequate pain control throughout the perioperative period The patient received appropriate medication(s), safely administered during the perioperative period Acuity Level PACU I FT Entry 1 Start Time 12/02/23 08:13:00 Stop Time 12/02/23 08:43:00 Acuity Level Acuity Level I Last Modified By: Elsa Hernández RN 12/02/23 08:55:31 Finalized By: Elsa Hernández RN Document Signatures Signed By: Elsa Hernández RN 12/02/23 08:55 Normal [facility] Main OR Preoperative Recordo n 12-02-2023 Main OR Preoperative Record Holding Area Document Type FT Summary Primary Physician: Cl OG MD Finalized Date/Time: 12/02/23 07:04:57 Pt. Name: TRAY MEZA Yasmeen WatsonB./Sex: 1965 Male Med Rec #: [id number] Physician: Cl OG MD Financial #: [id number] Pt. Type: O Room/Bed: / Admit/Disch: 12/02/23 06:44:54 - Institution: Case Times Holding FT Pre-Care Text: Verifies consent for planned procedure, identifies individual values and wishes concerning care, includes family members in perioperative teaching Secures patient's records' belongings, and valuables, maintains patient's dignity and privacy, and maintains patient confidentiality Entry 1 In Holding 12/02/23 06:49:00 Outcomes Met? Yes Last Modified By: Ivanna Tate RN 12/02/23 06:56:56 Post-Care Text: The patient participates in decisions affecting his or her perioperative plan of care The patient's right to privacy is maintained Surgery Checklist FT Entry 1 Patient Birthday, ID Band Procedure History and Physical, Identification: Check, Patient Verification: Surgical Consent, With Participation Patient NPO after Midnight: Yes Date/Time: 12/02/23 03:00:00 Personal Items: Dentures, Glasses, Personal Items glasses, necklace, Jewelry Comment: ring, upper and lower partials Limitations: n/a Complaints of Pain: No Pain Comment: denies Operative Site n/a Marking: Marked By: n/a Availability Equipment Verified: Does Patient Smoke No Patient states Yes Comment - Adult Becky- postop adult Supervision supervision available Case Cancelled in No Holding Area see comments below for reason Last Modified By: Ivanna Tate RN 12/02/23 07:04:54 General Comments: Pt finished colon prep at 0300, states stool is liquid green/yellow. has been NPO since. /,RN Finalized By: Ivanna Tate RN Document Signatures Signed By: Ivanna Tate RN 12/02/23 07:04 Normal [facility] Monitor Recordon 12-02-2023 Monitor Record [id number]. 00TIFF [facility] Monitor Record [id number]. 00TIFF Normal [facility] Outpatient Surgery Discharge Instructionon 12-02-2023 Outpatient Surgery Discharge Instruction [place] [id number] Patient Discharge Instructions PERSON INFORMATION Name: ANABrayanTRAY Date of : 1965 Current Date: 12/02/2023 08:15:18 PHYSICIANS Admitting Physician: LENKA ANTOINE, Cl Schmidt Discharge Diagnosis: Frequent loose stools TRAY MEZA has been given the following list of follow-up instructions, prescriptions, and patient education materials: PATIENT FOLLOW-UP INFORMATION Diet: Other: high fiber Discharge Activity: Resume normal activities in 24 hours, Arrange for a responsible adult supervision for 24 hours Discharge Restrictions: No driving for 24 hrs, Do not operate machinery or tools, Do not make important decisions for 24 hours, Do not drink alcoholic beverages for 24 hours Call Your Doctor For: Persistent or heavy bleeding, Temperature above 101.5 degrees, Redness, swelling, or pus at operative site, Severe pain at the operative site, Persistent vomiting IF UNABLE TO CONTACT YOUR PHYSICIAN AND YOU FEEL IT IS AN EMERGENCY, GO TO THE NEAREST EMERGENCY ROOM OR CALL 911 ISUSANA JOSEPH D, have received the attached patient education materials/instructions and have verbalized understanding: May we do a follow up call? Yes No I was present when discharge instructions were given Patient Signature Date Clinican/Nurse Signature ___ Date Follow up: With: Address: When: [address], [address], [place] [address] [place] [id number] Business (1) Within 7 to 10 days Pharmacy Information: You may receive a survey from Jabier Foy asking you to rate your care experience. Your feedback is important and will help us understand what we do well and how we can improve the quality of care we provide to you, your loved ones and our community. It?s an honor to serve you. Thank you for choosing [facility] HERE ARE THE MEDICATION CHANGES THAT OCCURRED DURING YOUR HOSPITAL STAY Medications to Continue with No Changes Other Medications metoprolol (Lopressor 25 mg oral tablet) 1 Tablets By Mouth every day. naproxen (naproxen 500 mg Tab) 1 Tablets By Mouth 2 times a day. PATIENT EDUCATION INFORMATION Instructions: Medication Leaflets: [facility] Patient Education - Texton 0 12-02-2023 Patient Education - Text Colonoscopy Care After Surgery Please read the instructions outlined below and refer to this sheet in the next few weeks. These discharge instructions provide you with general information on caring for yourself after you leave the hospital. Your doctor may also give you specific instructions. While your treatment has been planned according to the most current medical practices available, unavoidable complications occasionally occur. If you have any problems or questions after discharge, please call your doctor. ACTIVITY You may resume your regular activity, but move at a slower pace for the next 24 hours. Take frequent rest periods for the next 24 hours. Walking will help get rid of the air and reduce the bloated feeling in your abdomen (belly). No driving for 24 hours (because of the anesthesia (medicine) used during the test). You may shower. Do not sign any important legal documents or operate any machinery for 24 hours (because of the anesthesia used during the test). NUTRITION Drink plenty of fluids. You may resume your normal diet as instructed by your doctor. Begin with a light meal and progress to your normal diet. Heavy or fried foods are harder to digest and may make you feel nauseated (sick to your stomach). Avoid alcoholic beverages for 24 hours or as instructed. MEDICATIONS You may resume your normal medications unless your doctor tells you otherwise. WHAT YOU CAN EXPECT TODAY Some feelings of bloating in the abdomen. Passage of more gas than usual. Spotting of blood in your stool or on the toilet paper. FOLLOW-UP Your doctor will discuss the results of your test with you. SEEK IMMEDIATE MEDICAL ATTENTION IF: There is more than a spotting of blood in your stool. There is abdominal distention (your abdomen is swollen). There is vomiting. You have a temperature over 101.5 F. There is abdominal pain or discomfort that is severe or gets worse throughout the day. Normal [facility] Progress Note-Physicianon Progress Note-Physician Patient: TRAY MEZA Age: 58 years Sex: Male : 1965 Associated Diagnoses: None Author: Adriano Dewitt Jr., DO Postoperative Information Postoperative disposition: Postoperative disposition: Home. Optimetrix number: Optimetrix number [id number]. Anesthetic utilized: General. Physical Examination Vital Signs 12/02/2023 8:40 EDT Heart Rate Monitored 66 bpm Respiratory Rate Monitored 20 br/min Systolic Blood Pressure 123 mmHg Diastolic Blood Pressure 81 mmHg Blood Pressure Location Left arm Mean Arterial Pressure, Cuff 95 mmHg SpO2 100 % 12/02/2023 8:25 EDT Heart Rate Monitored 64 bpm Respiratory Rate Monitored 15 br/min Systolic Blood Pressure 121 mmHg Diastolic Blood Pressure 76 mmHg Blood Pressure Location Left arm Mean Arterial Pressure, Cuff 91 mmHg SpO2 99 % 12/02/2023 8:20 EDT Heart Rate Monitored 70 bpm Respiratory Rate Monitored 17 br/min Systolic Blood Pressure 109 mmHg Diastolic Blood Pressure 70 mmHg Blood Pressure Location Left arm Mean Arterial Pressure, Cuff 83 mmHg SpO2 98 % 12/02/2023 8:15 EDT Heart Rate Monitored 73 bpm Respiratory Rate Monitored 17 br/min Systolic Blood Pressure 99 mmHg Diastolic Blood Pressure 65 mmHg Blood Pressure Location Left arm Mean Arterial Pressure, Cuff 76 mmHg SpO2 98 % 12/02/2023 8:13 EDT Temperature Temporal Artery 36.7 DegC Heart Rate Monitored 71 bpm Respiratory Rate Monitored 19 br/min Systolic Blood Pressure 100 mmHg Diastolic Blood Pressure 63 mmHg Blood Pressure Location Left arm Mean Arterial Pressure, Cuff 75 mmHg SpO2 98 % Pain Assessment: Controlled. General: Awake, Alert, Appropriate. Respiratory: Adequate air exchange, Non-labored. Cardiovascular: Stable, Normal peripheral perfusion. Neurological: Neurologic exam at baseline. No changes.. Assessment Anesthetic outcome No anesthetic complications noted. No nausea/vomiting. Review / Management Condition: Stable. Plan Transfer/Discharge: Transfer/Discharge Discharge when meets criteria ( From PACU to Ambulatory Surgery Unit, and To home ). Normal [facility] Comment on above: Result Comment: Elec tronically Signed By: Adriano Dewitt Jr., DO\.br\Date and Time Signed: 12/02/23 09:03 EDT Progress Note-Physician Patient: TRAY MEZA Age: 58 years Sex: Male : 1965 Associated Diagnoses: None Author: Adriano Dewitt Jr., DO Preoperative Information Anesthesia history: Patient history: No prior anesthetic problems. Informed consent: Signed by patient. Re-evaluation prior to induction: Initial evaluation reviewed: No significant change. Review of Systems Respiratory: Negative except as documented in history of present illness. Cardiovascular: Negative except as documented in history of present illness. Health Status Allergies: Allergic Reactions (Selected) Severity Not Documented Penicillin- No reactions were documented., Allergies (1) Active Severity Reaction penicillin None Documented Current medications: (Selected) Inpatient Medications Ordered Lactated Ringers IV Jamia 1000 mL 1,000 mL: 1,000 mL, IV, 100 mL/hr, Routine, Start date 12/02/23 7:13:00 EDT, 10 hour(s), Total volume (mL): 1,000, 63.6 kg, 1.73, m2 Sodium Chloride 0.9% IV Jamia 1000 mL 1,000 mL: 1,000 mL, IV, 20 mL/hr, Routine, Start date 12/02/23 6:34:00 EDT, 50 hour(s), Total volume (mL): 1,000, 63.6 kg, 1.73, m2 Documented Medications Documented Lopressor 25 mg oral tablet: 25 mg = 1 tab(s), Oral, Daily, Refills(s) 0, High blood pressure naproxen 500 mg Tab: 500 mg = 1 tab(s), Oral, BID, Refills(s) 0, Pain, Home Medications (2) Active Lopressor 25 mg oral tablet 25 mg = 1 tab(s), Oral, Daily naproxen 500 mg Tab 500 mg = 1 tab(s), Oral, BID , Medications (2) Active Scheduled: (0) Continuous: (2) Lactated Ringers 1,000 mL 1,000 mL, IV, 100 mL/hr Sodium Chloride 0.9% 1,000 mL 1,000 mL, IV, 20 mL/hr PRN: (0) Problem list: All Problems Alcoholism / SNOMED CT 78835923 / Confirmed Anxiety / SNOMED CT 83873546 / Confirmed Change in bowel habits / SNOMED CT 918202709 / Confirmed Frequent loose stools / SNOMED CT 689373890 / Confirmed Insomnia / SNOMED CT 137743991 / Confirmed Memory loss / SNOMED CT 37778650 / Confirmed Sinus tachycardia / SNOMED CT 07801831 / Confirmed Histories Past Medical History: No active or resolved past medical history items have been selected or recorded. Procedure history: Tonsillectomy (811705458). Vasectomy (55571694). Simple dental extraction (339992353). Arthroscopy of knee (539397592). Social History Social & Psychosocial Habits Alcohol 12/02/2023 Use: Current Type: Beer Frequency: Daily Substance Abuse 12/02/2023 Risk Assessment: Denies Substance Abuse Tobacco 12/02/2023 Tobacco Use: 10 or more cigarettes (1/ Smokeless tobacco use: Smokeless tobacco user wi Type: Cigarettes, Oral Tobacco use per day: 0.5 Started at age: 19.0 Years Smoking Cessation Yes . Physical Examination Vital Signs 12/02/2023 6:55 EDT Temperature Temporal Artery 36 DegC LOW Heart Rate Monitored 99 bpm Respiratory Rate Monitored 16 br/min Systolic Blood Pressure 149 mmHg HI Diastolic Blood Pressure 99 mmHg HI Blood Pressure Location Left arm SpO2 98 % Measurements from flowsheet : Measurements 12/02/2023 7:05 EDT Height/Length Measured 170 cm Height/Length Dosing 170.0 cm Weight Dosing 63.6 kg BSA Measured 1.73 m2 Body Mass Index Measured 22.01 kg/m2 Weight Measured 63.6 kg Airway: Mallampati classification: II (soft palate, fauces, uvula visible). Respiratory: Lungs are clear to auscultation, Respirations are non-labored. Cardiovascular: Regular rhythm. Plan [place] [employer]esthesi[employer] (ASA) physical status classification: Class III. Anesthetic Preoperative Plan: Anesthesia General, and -TIVA. Normal [facility] Comment on above: Result Comment: Elec tronically Signed By: Adriano Dewitt Jr., DO.babar\Date and Time Signed: 12/02/23 07:14 EDT Consent for Procedure/Surger yon 11-21-2023 Consent for Procedure/Surgery [id number] 0TIFF [facility] Insurance Correspondenceon 0 11-21-2023 Insurance Correspondence [id number]. 00TIFF [facility] Ambulatory Visit Summaryon 0 11-18-2023 Ambulatory Visit Summary TRAY MEZA Yasmeen :1965 Visit Date:11/18/2023 Ambulatory Visit Instructions Your Care Team Attending Physician - LENKA ANTOINE, Cl Schmidt Primary Care Physician - Syed Soto MD This Is Your Medications List Contact prescribing physician if questions or concerns dicyclomine (dicyclomine 20 mg Tab) naproxen (naproxen 500 mg Tab) Procedures Performed Arthroscopy of knee, Simple dental extraction, Tonsillectomy, Vasectomy. Discharge Vitals Heart Rate (Peripheral) 69 Respiratory Rate 16 Blood Pressure 149/88 Height 170 cm Height 67 in Weight 63.6 kg Weight 139.92 lb BMI 22.01 Medications What How Much When Instructions Unchanged dicyclomine (dicyclomine 20 mg Tab) 1 Tablets By Mouth 3 times a day Contact prescribing physician if questions or concerns Unchanged naproxen (naproxen 500 mg Tab) 1 Tablets By Mouth 2 times a day Contact prescribing physician if questions or concerns Allergies penicillin Problems Ongoing - Any problem that you are currently receiving treatment for. Alcoholism Anxiety Insomnia Memory loss Sinus tachycardia Patient Survey You may receive a survey via text or e-mail asking about your office visit. Please share your experience with us by completing your survey. We appreciate your feedback and thank you for choosing us for your care. Normal [facility] Lab Reportson 11-15-2023 Lab Reports [id number] 0TIFF Normal [facility] Physician Referralon 024 Physician Referral [id number] 0TIFF Normal [facility] MRI TSPINE WO CONon 09-08-19 23 MRI TSPINE WO CON EXAMINATION: MRI TSPINE [...] ROLY JAMA Date: 2022-09-08 18:55 Normal [facility] INSULINon 09-01-2022 Insulin 1.7 uIU/mL Critically low 2.6-24.9 [facility] Comment on above: Performed By: #### I NSULIN #### [facility] [address] [place] [address] [address] Deedee Pryor TESTOSTERONE, TOTALon 2022 Testosterone [Mass/Vol] 593 ng/dL Normal 264-916 [facility] Comment on above: Result Comment: Adul t male reference interval is based on a population of healthy nonobese males (BMI <30) between 19 and 39 years old. agusto Yoder.al. JCEM 2017,102;7986-4440. PMID: 59833216. Performed By: #### T ESTTOT #### [facility] [address] [place] [address] Dr. Deedee Pryor CBC AUTO DIFFon 08-31-2022 BASO # 0.1 103/ul Normal 0.0-0.1 [facility] Comment on above: Performed By: #### C BC #### [facility] [address] [place] [address] Dr. Deedee Pryor Basophils/100 WBC (Bld) 0.9 % Normal 0.2-2.0 [facility] Comment on above: Performed By: #### C BC #### [facility] [address] [place] [address] Dr. Deedee Pryor EO # 0.1 103/ul Normal 0.0-0.7 [facility] Comment on above: Performed By: #### C BC #### [facility] [address] [place] [address] Dr. Deedee Pryor Eosinophils/100 WBC (Bld) 1.4 % Normal 0.9-7.0 [facility] Comment on above: Performed By: #### C BC #### [facility] [address] [place] [address] Dr. Deedee Pryor Erythrocyte distribution width (RBC) [Ratio] 12.9 % Normal 11.0-15.0 [facility] Comment on above: Performed By: #### C BC #### [facility] [address] [place] [address] Dr. Deedee Pryor Hematocrit (Bld) [Volume fraction] 42.9 % Normal 42.0-54.0 [facility] Comment on above: Performed By: #### C BC #### [facility] [address] [place] [address] Dr. Deedee Pryor Hemoglobin (Bld) [Mass/Vol] 15.1 g/dL Normal 14.0-18.0 [facility] Comment on above: Performed By: #### C BC #### [facility] [address] [place] [address] Dr. Deedee Pryor IG # 0.02 10e3/ul Normal 0.00-0.03 [facility] Comment on above: Performed By: #### C BC #### [facility] [address] [place] [address] Dr. Deedee Pryor IG % 0.2 % Normal 0.0-0.5 [facility] Comment on above: Performed By: #### C BC #### [facility] [address] [place] [address] Dr. Deedee Pryor LYMPH # 1.2 103/ul Normal 1.2-3.8 [facility] Comment on above: Performed By: #### C BC #### [facility] [address] [place] [address] Dr. Deedee Pryor Lymphocytes/100 WBC (Bld) 13.6 % Critically low 20.5-60.0 [facility] Comment on above: Performed By: #### C BC #### [facility] [address] [place] [address] Dr. Deedee Pryor MANUAL DIFF REQ NO Normal [facility] Comment on above: Performed By: #### C BC #### [facility] [address] [place] [address] Dr. Deedee Pryor MCH (RBC) [Entitic mass] 31.9 pg Normal 25.9-34.0 [facility] Comment on above: Performed By: #### C BC #### [facility] [address] [place] [address] Dr. Deedee Pryor MCHC (RBC) [Mass/Vol] 35.2 g/dL Normal 29.9-35.2 [facility] Comment on above: Performed By: #### C BC #### [facility] [address] [place] [address] Dr. Deedee Pryor MCV (RBC) [Entitic vol] 90.7 fL Normal 80.0-94.0 [facility] Comment on above: Performed By: #### C BC #### [facility] [address] [place] [address] Dr. Deedee Pryor MONO # 0.7 103/ul Normal 0.3-0.8 [facility] Comment on above: Performed By: #### C BC #### [facility] [address] [place] [address] Dr. Deedee Pryor Monocytes/100 WBC (Bld) 8.3 % Normal 1.7-12.0 [facility] Comment on above: Performed By: #### C BC #### [facility] [address] [place] [address] Dr. Deedee Pryor NEUT # 6.6 103/ul Critically high 1.4-6.5 [facility] Comment on above: Performed By: #### C BC #### [facility] [address] [place] [address] Dr. Deedee Pryor Neutrophils/100 WBC (Bld) 75.6 % Critically high 43.0-75.0 [facility] Comment on above: Performed By: #### C BC #### [facility] [address] [place] [address] Dr. Deedee Pryor Platelet mean volume (Bld) [Entitic vol] 8.3 fL Critically low 9.5-13.5 [facility] Comment on above: Performed By: #### C BC #### [facility] [address] [place] [address] Dr. Deedee Pryor PLT 286 103/ul Normal 150-450 [facility] Comment on above: Performed By: #### C BC #### [facility] [address] [place] [address] Dr. Deedee Pryor RBC 4.73 106/ul Normal 4.70-6.10 [facility] Comment on above: Performed By: #### C BC #### [facility] [address] [place] [address] Dr. Deedee Pryor WBC 8.7 103/ul Normal 4.0-11.0 [facility] Comment on above: Performed By: #### C BC #### [facility] [address] [place], [place] [id number] Dr. Deedee Pryor CT LUNG CANCER SCREENINGon [...] in 12 months. Electronically authenticated by: AYDIN ABAD Date: 2022-08-31 15:40 Normal [facility] FREE THYROXINE INDEX T7on FTI 2.03 Normal 1.30-4.50 [facility] Comment on above: Performed By: #### T 7, LIPID, TSH, URIC, CMP ####[facility] [address] [place] [address]Dr. Deedee Pryor T3U 35.0 % Normal 33.0-40.0 [facility] Comment on above: Performed By: #### T 7, LIPID, TSH, URIC, CMP ####[facility] [address] [place] [address]Dr. Deedee Pryor T4 [Mass/Vol] 5.80 ug/dL Normal 4.50-12.10 [facility] Comment on above: Performed By: #### T 7, LIPID, TSH, URIC, CMP ####[facility] [address] [place] [id number]. Deedee Pryor GLYCOHEMOGLOBIN A1Con 2022 ADA RECOMMENDATION SEE BELOW Normal [facility] Comment on above: Result Comment: ADA RECOMMENDED LIMIT 4.0 - 6.0 ADA THERAPEUTIC TARGET < 7.0 ACTION SUGGESTED > 7.0 Performed By: #### A 1C ####[facility] [address] [place] [address]DrWestley Pryor Glucose [Mass/Vol] 97 mg/dL Normal [facility] Comment on above: Performed By: #### A 1C ####[facility] [address] [place] [id number]. Deedee Pryor HbA1c (Bld) [Mass fraction] 5.0 % Normal 4.5-6.2 [facility] Comment on above: Performed By: #### A 1C ####[facility] [address] [place] [id number]. Deedee Pryor LIPID PROFILEon 08-31-2022 CHOL-HDL RATIO NORM SEE BELOW Normal [facility] Comment on above: Result Comment: 3.3 - 4.4 LOW RISK 4.4 - 7.1 AVERAGE RISK 7.1 - 11.0 MODERATE RISK >11.0 HIGH RISK Performed By: #### T 7, LIPID, TSH, URIC, CMP ####[facility] [address] [place] [address]Dr. Deedee Pryor Cholesterol [Mass/Vol] 183 mg/dL Normal <=200 [facility] Comment on above: Performed By: #### T 7, LIPID, TSH, URIC, CMP ####[facility] [address] [place] [id number]. Deedee Pryor Cholesterol in HDL [Mass/Vol] 123 mg/dL Critically high 40-60 [facility] Comment on above: Performed By: #### T 7, LIPID, TSH, URIC, CMP ####[facility] [address] [place] [id number]. Deedee Pryor Cholesterol in LDL [Mass/Vol] 52.0 mg/dL Normal [facility] Comment on above: Performed By: #### T 7, LIPID, TSH, URIC, CMP ####[facility] [address] [place] [id number]. Deedee Pryor Cholesterol.total/Cho lesterol in HDL [Mass ratio] 1.5 {ratio} Normal [facility] Comment on above: Performed By: #### T 7, LIPID, TSH, URIC, CMP ####[facility] [address] [place] [id number]. Deedee Pryor HDL NORMAL > or = 60 mg/dl - LO W CARDIOVASCULAR RISK <40 mg/dl - HIGH CARDIOVASCULAR RISK Normal [facility] Comment on above: Performed By: #### T 7, LIPID, TSH, URIC, CMP ####[facility] [address] [place] [address]Dr. Deedee Pryor LDL CALC NORMAL SEE BELOW Normal [facility] Comment on above: Result Comment: <100 mg/dl OPTIMAL 100 - 129 mg/dl NEAR OR ABOVE OPTIMAL 130 - 159 mg/dl BORDERLINE HIGH 160 - 189 mg/dl HIGH >190 mg/dl VERY HIGH Performed By: #### T 7, LIPID, TSH, URIC, CMP ####[facility] [address] [place] [address]Dr. Deedee Pryor Triglyceride [Mass/Vol] 40 mg/dL Normal <=150 [facility] Comment on above: Performed By: #### T 7, LIPID, TSH, URIC, CMP ####[facility] [address] [place] [address]Dr. Deedee Pryor VLDL CALC 8.0 mg/dL Normal [facility] Comment on above: Performed By: #### T 7, LIPID, TSH, URIC, CMP ####[facility] [address] [place] [address]Dr. Deedee Pryor PROF 14(COMP METB)on 023 Albumin [Mass/Vol] 4.4 g/dL Normal 3.4-5.0 [facility] Comment on above: Performed By: #### T 7, LIPID, TSH, URIC, CMP ####[facility] [address] [place] [address]Dr. Deedee Pryor Albumin/Globulin [Mass ratio] 1.2 {ratio} Normal [facility] Comment on above: Performed By: #### T 7, LIPID, TSH, URIC, CMP ####[facility] [address] [place] [address]Dr. Deedee Pryor ALP [Catalytic activity/Vol] 91 U/L Normal 46-116 [facility] Comment on above: Performed By: #### T 7, LIPID, TSH, URIC, CMP ####[facility] [address] [place] [address]Dr. Deedee Pryor ALT [Catalytic activity/Vol] 26 U/L Normal 16-63 [facility] Comment on above: Performed By: #### T 7, LIPID, TSH, URIC, CMP ####[facility] [address] [place] [address]Dr. Deedee Pryor Anion gap [Moles/Vol] 17.0 mmol/L Normal [facility] Comment on above: Performed By: #### T 7, LIPID, TSH, URIC, CMP ####[facility] [address] [place], [place] [address]Dr. Deedee Pryor AST [Catalytic activity/Vol] 29 U/L Normal 15-37 [facility] Comment on above: Performed By: #### T 7, LIPID, TSH, URIC, CMP ####[facility] [address] [place], [place] [address]Dr. Deedee Pryor Bilirubin [Mass/Vol] 0.5 mg/dL Normal 0.2-1.0 [facility] Comment on above: Performed By: #### T 7, LIPID, TSH, URIC, CMP ####[facility] [address] [place], [place] [address]Dr. Deedee Pryor Calcium [Mass/Vol] 9.3 mg/dL Normal 8.5-10.1 [facility] Comment on above: Performed By: #### T 7, LIPID, TSH, URIC, CMP ####[facility] [address] [place], [place] [address]Dr. Deedee Pryor Chloride [Moles/Vol] 93 mmol/L Critically low 98-107 [facility] Comment on above: Performed By: #### T 7, LIPID, TSH, URIC, CMP ####[facility] [address] [place], [place] [address]Dr. Deedee Pryor CO2 [Moles/Vol] 27.8 mmol/L Normal 21.0-32.0 [facility] Comment on above: Performed By: #### T 7, LIPID, TSH, URIC, CMP ####[facility] [address] [place], [place] [address]Dr. Deedee Pryor Creatinine [Mass/Vol] 0.81 mg/dL Normal 0.70-1.30 [facility] Comment on above: Performed By: #### T 7, LIPID, TSH, URIC, CMP ####[facility] [address] [place] [address]Dr. Deedee Pryor EGFR-AF GHANAIAN >60 Normal >=60 [facility] Comment on above: Performed By: #### T 7, LIPID, TSH, URIC, CMP ####[facility] [address] [place], [place] [address]Dr. Deedee Pryor EGFR-NON AF GHANAIAN >60 Normal >=60 [facility] Comment on above: Performed By: #### T 7, LIPID, TSH, URIC, CMP ####[facility] [address] [place], [place] [address]Dr. Deedee Pryor Globulin (S) [Mass/Vol] 3.7 g/dL Normal [facility] Comment on above: Performed By: #### T 7, LIPID, TSH, URIC, CMP ####[facility] [address] [place], [place] [address]Dr. Helenazita Pryor Glucose [Mass/Vol] 92 mg/dL Normal 74-106 [facility] Comment on above: Performed By: #### T 7, LIPID, TSH, URIC, CMP ####[facility] [address] [place], [place] [address]Dr. Deedee Pryor Potassium [Moles/Vol] 4.8 mmol/L Normal 3.5-5.1 [facility] Comment on above: Performed By: #### T 7, LIPID, TSH, URIC, CMP ####[facility] [address] [place], [place] [address]Dr. Deedee Pryor Protein [Mass/Vol] 8.1 g/dL Normal 6.4-8.2 [facility] Comment on above: Performed By: #### T 7, LIPID, TSH, URIC, CMP ####[facility] [address] [place], [place] [address]Dr. Deedee Pryor Sodium [Moles/Vol] 133 mmol/L Critically low 136-145 [facility] Comment on above: Performed By: #### T 7, LIPID, TSH, URIC, CMP ####[facility] [address] [place] [id number]. Deedee Pryor Urea nitrogen [Mass/Vol] 7.0 mg/dL Normal 7.0-18.0 [facility] Comment on above: Performed By: #### T 7, LIPID, TSH, URIC, CMP ####[facility] [address] [place] [id number]. Deedee Pryor Urea nitrogen/Creatinine [Mass ratio] 8.6 mg/mg Normal [facility] Comment on above: Performed By: #### T 7, LIPID, TSH, URIC, CMP ####[facility] [address] [place] [address]Dr. Deedee Pryor TSHon 08-31-2022 TSH 0.976 uIU/mL Normal 0.358-3.740 [facility] Comment on above: Performed By: #### T 7, LIPID, TSH, URIC, CMP #### [facility] [address] [place], [place] [address] Dr. Deedee Pryor URIC ACID SERUMon 08-31-2022 Urate [Mass/Vol] 3.9 mg/dL Normal 3.5-7.2 [facility] Comment on above: Performed By: #### T 7, LIPID, TSH, URIC, CMP ####[facility] [address] [place] [id number]. Deedee Pryor XR LSPINE MIN 4 VIEWSon 08-03 XR LSPINE MIN 4 VIEWS EXAMINATION: XR LS PINE MIN 4 VIEWS HISTORY: Muscle and tendon [...] Unremarkable lumbar spine. Electronically authenticated by: AYDIN ABAD Date: 2022-08-31 09:32 Normal [facility] Vital Signs Date Time Vital Sign Value Performing Clinician Keke hare 12-02-2023 08:40-0400 Blood Pressure Location Cl NILL [facility] 12-02-2023 08:40-0400 Diastolic blood pressure 81 mm[Hg] Cl NILL [facility] 12-02-2023 08:40-0400 Heart rate 66 /min Cl NILL [facility] 12-02-2023 08:40-0400 Mean blood pressure 95 mm[Hg] Cl NILL [facility] 12-02-2023 08:40-0400 Respiratory rate 20 /min Cl NILL [facility] 12-02-2023 08:40-0400 SaO2% (BldA) [Mass fraction] 100 % Cl NILL [facility] 12-02-2023 08:40-0400 Systolic blood pressure 123 mm[Hg] Cl NILL [facility] 12-02-2023 08:25-0400 Blood Pressure Location Cl NILL [facility] 12-02-2023 08:25-0400 Diastolic blood pressure 76 mm[Hg] Cl NILL [facility] 12-02-2023 08:25-0400 Heart rate 64 /min Cl NILL [facility] 12-02-2023 08:25-0400 Mean blood pressure 91 mm[Hg] Cl NILL [facility] 12-02-2023 08:25-0400 Respiratory rate 15 /min Cl NILL [facility] 12-02-2023 08:25-0400 SaO2% (BldA) [Mass fraction] 99 % Cl NILL [facility] 12-02-2023 08:25-0400 Systolic blood pressure 121 mm[Hg] Cl NILL [facility] 12-02-2023 08:20-0400 Blood Pressure Location Cl NILL [facility] 12-02-2023 08:20-0400 Diastolic blood pressure 70 mm[Hg] Cl NILL [facility] 12-02-2023 08:20-0400 Heart rate 70 /min Cl NILL [facility] 12-02-2023 08:20-0400 Mean blood pressure 83 mm[Hg] Cl NILL [facility] 12-02-2023 08:20-0400 Respiratory rate 17 /min Cl NILL [facility] 12-02-2023 08:20-0400 SaO2% (BldA) [Mass fraction] 98 % Cl NILL [facility] 12-02-2023 08:20-0400 Systolic blood pressure 109 mm[Hg] Cl NILL [facility] 12-02-2023 08:13-0400 Body temperature 98.06 [degF] Cl NILL [facility] 12-02-2023 08:10-0400 Respiratory rate 15 /min Cl NILL [facility] 12-02-2023 08:05-0400 Respiratory rate 15 /min Cl NILL [facility] 12-02-2023 06:55-0400 Body temperature 96.8 [degF] Cl NILL [facility] 11-18-2023 13:00-0400 Blood Pressure Location Cl NILL [facility] 11-18-2023 13:00-0400 Diastolic blood pressure 88 mm[Hg] Cl NILL [facility] 11-18-2023 13:00-0400 Heart rate 69 /min Cl NILL [facility] 11-18-2023 13:00-0400 Respiratory rate 16 /min Cl NILL [facility] 11-18-2023 13:00-0400 Systolic blood pressure 149 mm[Hg] Cl NILL [facility] Encounters Encounter Date Encounter Type Care Provider Facility Start: 12-15-2023 End: 12-16-2023 ambulatory Cl R NILL Facility:[facility] Start: 12-15-2023 End: 12-15-2023 Patient encounter procedure Cl R NILL [facility] Start: 12-12-2023 ambulatory Cl NILL Facility:[facility] Start: 12-02-2023 End: 12-03-2023 ambulatory Cl R NILL [facility] Start: 12-02-2023 End: 12-02-2023 Patient encounter procedure Cl R NILL [facility] Start: 11-18-2023 End: 11-19-2023 ambulatory Cl R NILL Facility:[facility] Start: 11-18-2023 End: 11-18-2023 Patient encounter procedure Cl R NILL [facility] [place] Start: 11-11-2023 ambulatory Cl OG Facility:[facility] Start: 10-05-2022 End: 10-06-[address] SYED SOTO . Facility:[facility] Start: 09-23-2022 End: 09-24-[address] SYED SOTO . Facility:[facility] Start: 09-08-2022 End: 09-09-[address] SYED SOTO . Facility:[facility] Start: 09-01-2022 Encounter for genera l adult medical examination without abnormal findings DR SYED SOTO . [facility] Start: 08-31-2022 End: 09-01-[address] SYED SOTO . Facility:[facility] Start: 08-31-2022 End: 09-01-2022 Encounter for general adult medical examination without abnormal findings DR SYED SOTO . Facility:[facility] Start: 08-24-2021 End: 08-24-2021 Emergency department patient visit Syed Soto Facility:[facility] Procedures Date Procedure Procedure Detail Performing Clinician Start: 12-02-2023 Colonoscopy Cl NI LL Start: 08-31-[address] ANJALI SOTO . Comment on above: Performed By: #### [facility] #### [facility] [address] [place] [address] Dr. Deedee Pryor Arthroscopy of knee Cl OG Simple extraction of tooth Jenny estevez LENKA Tonsillectomy Cl ALEXL Vasectomy Cl NILL Immunizations Immunization Date Immunization Notes Care Provider Fa cility 08-29-2021 SARS-CoV-2 (COVID-19 ) mRNA BNT-162b2 vax Cl JOHNSONL [facility] [place] 08-08-2021 SARS-CoV-2 (COVID-19 ) mRNA BNT-162b2 vax Cl NILL [facility] [place] Payers Date Payer Category Payer Self-pay 2021 Unknown [id number] 1965 Unknown [id number] 2.16.84 [id number] 1965 Unknown [id number] 2.16.84 [id number] 1965 Unknown [id number] 2.16.84 [id number] 1965 Unknown [id number] 2.16.84 [id number] 1966 Unknown [id number] 2.16.8 [id number] 1966 Unknown [id number] 2.16.8 [id number] 1965 Unknown [id number] 2.16.8 [id number] 1958 Unknown [id number] Unknown [id number] 2.16.8 [id number] Social History Date Type Detail Facility Start: 11-18-2023 Tobacco smoking status Heavy t obacco smoker (finding) [facility] Tobacco smoking status Smokeless tobacco user within last 30 days [facility] Sex Assigned At Male [facility] Functional Status Date Assessment Result Facility 12-02-2023 Functional Status N/A [facility] 11-18-2023 Functional Status N/A [facility] Clinical Notes 09-23-2022 to 12-05-2023 Note Date & Type Note Facility 12-05-2023 Note [id number] 5#1.00TIFF [facility] 12-02-2023 Evaluation + Plan note Extrac jose from: Title:ANES Post-operative Note - General Author: Adriano Dewitt Jr., DO Date:12/02/23 Plan Transfer/Discharge: Transfer/Discharge Discharge when meets criteria ( From PACU to Ambulatory Surgery Unit, and To home ). Extracted from: Title:ANES Pre-operative Note - Endo Author:Winston fierro Jr. Adriano POSADA Date:12/02/23 Plan [place] [employer] (ASA) physical status classification: Class III. Anesthetic Preoperative Plan: Anesthesia General, and -TIVA. [facility]05-03-2024 NotePatient: TRAY MEZA Age: 58 years Sex: Male : 1965 Associated Diagnoses: None Author: Cl OG MD Subjective no changes to [facility] & [facility] on above:Result Comment: Electronically Signed By: Cl OG MD\.br\Date and Time Signed: 12/02/23 09:01 [id number] Hospital Discharge instructions Patient Education 12/02/2023 08:18:57 Colonoscopy, Care After Surgery Salam (CUSTOM) Colonoscopy Care After Surgery Please read the instructions outlined below and refer to this sheet in the next few weeks. These discharge instructions provide you with general information on caring for [facility] Your doctor may also give you specific instructions. While your treatment has been planned according to the most current medical practices available, unavoidable complications occasionally occur. If you have any problems or questions after discharge, please call your doctor. ACTIVITY You may resume your regular activity, but move at a slower pace for the next 24 hours. Take frequent rest periods for the next 24 hours. Walking will help get rid of the air and reduce the bloated feeling in your abdomen (belly). No driving for 24 hours (because of the anesthesia (medicine) used during the test). You may shower. Do not sign any important legal documents or operate any machinery for 24 hours (because of the anesthesia used during the test). NUTRITION Drink plenty of fluids. You may resume your normal diet as instructed by your doctor. Begin with a light meal and progress to your normal diet. Heavy or fried foods are harder to digestand may make you feel nauseated (sick to your stomach). Avoid alcoholic beverages for 24 hours or as instructed. MEDICATIONS You may resume your normal medications unless your doctor tells you otherwise. WHAT YOU CAN EXPECT TODAY Some feelings of bloating in the abdomen. Passage of more gas than usual. Spotting of blood in your stool or on the toilet paper. FOLLOW-UP Your doctor will discuss the results of your test with you. SEEK IMMEDIATE MEDICAL ATTENTION IF: There is more than a spotting of blood in your stool. There is abdominal distention (your abdomen is swollen). There is vomiting. You have a temperature over 101.5 F. There is abdominal pain or discomfort that is severe or gets worse throughout the day. Follow Up Care 11/18/2023 13:29:53 With:Cl OG Address: [address] [place] [address] [place], [address] [place] [id number] Business (1) When:7 to 10 days [facility]04-19-2024 NoteChief Complaint consultation for diarrhea HPI Staff 58 year old male presents on consultation from Dr. Soto for diarrhea. Patient reports water consistency stools x 2 months. Verbalized stool is occasionally soft as well but never formed. He reports upto 7 bowel movements per day. Prior to start of stool consistency change, patient was having 2-3 daily bowel movements. Reports prior to bowel movement, he will experience crampy abdominal pain; painresolves after defecation. Denies rectal pain or bleeding. Denies nausea, vomiting or weight loss. Stools studies negative. No recent ATB use. Never had colonoscopy in the past. No known family history of colon cancer or IBD. History of Present Illness 2 month h/o frequent loose watery stools; up to 7 x/day, no blood or mucous, no food triggers, somecrampy pain prior to bms; no N/V; no wt loss; normal appetite; negative stool studies; no recent antibiotic use or travel, no medication changes; no abd operations or previous endoscopy; takes Naprosyn daily, no asa; smokes daily; no fmhx of GI malignancy or IBD. Review of Systems PHQ Score Initial Depression Screen Score: 0 SCORE ROS - Provider Constitutional: no fever, no sweats, no weight loss. Eyes: yes glasses, no blurred vision, no visual loss. ENMT: no dentures, no hoarseness, no swallowing difficulties, no hearing loss, no ear infection(s),no nose bleeds. Cardiovascular: normal blood pressure, no chest pain, regular heartbeat, no heart murmur. Respiratory: no shortness of breath, no cough, no asthma, no wheezing. Gastrointestinal: no nausea, no vomiting, no diarrhea, no constipation, no blood in stool, no change in bowel habits, no abdominal pain, no hepatitis. Genitourinary: no kidney stones, no urine infection, no dysuria. Musculoskeletal: no pain, no weakness. Skin: no changing moles, no rash, no skin lumps. Neurologic: no seizures, no epilepsy, no headache. Psychiatric: no emotional or psychiatric problem. Heme/Lymph: no bleeding problems, no anemia, no blood clots, no transfusions. Allergy/Immunologic: no swollen lymph nodes/glands, no IV drug abuse. Other: Additional ROS info: Except as noted in the above Review of Systems and in the History of Present Illness, all other systems have been reviewed and are negative or noncontributory. Physical Exam Vitals & Measurements HR: 69(Peripheral) RR: 16 BP: 149/88 HT: 67 in HT: 170 cm WT: 63.6 kg WT: 139.92 lb BMI: 22.01 HEENT: normal conjunctiva, sclera clear, no scleral icterus, EOM intact, PERRLA, oral mucosa moist without lesions. Neck: trachea midline, no mass, symmetric, no thyromegaly or nodules, no adenopathy Respiratory: lungs CTA, respirations non labored. Cardiovascular: regular rate and rhythm, no murmur, no pedal edema or varicosities. Gastrointestinal: soft, non distended, no tenderness, no masses, no palpable hernias, diastasis recti no, no hepatosplenomegaly; normal bs Lymphatic: no cervical adenopathy, no supraclavicular adenopathy. Musculoskeletal: normal gait, digits and nails without infection, nodes, cyanosis, clubbing. Skin: no rashes, no lesions, no ulcers, no subcutaneous nodules, induration. Psychiatric/Neuro: oriented to time, place, person, judgement normal, affect appropriate for age, insight intact, no focal deficits. Tests: labs reviewed, review of old records completed , Discussed surgical options, risks, and possible complications with patient. Assessment/Plan 1. Change in bowel habits (R19.4: Change in bowel habit) plan colonoscopy under anesthesia, informed consent obtained. 2. Frequent loose stools (R19.7: Diarrhea, unspecified) see # 1 Follow-up No qualifying data available Problem List/Past Medical History Ongoing Alcoholism Anxiety Change in bowel habits Frequent loose stools Insomnia Memory loss Sinus tachycardia Historical No qualifying data Procedure/Surgical History Arthroscopy of knee, Simple dental extraction, Tonsillectomy, Vasectomy. Medications dicyclomine 20 mg Tab, 20 mg= 1 tab(s), Oral, TID naproxen 500 mg Tab, 500 mg= 1 tab(s), Oral, BID Allergies penicillin Social History Alcohol Current, Beer, Daily, 11/18/2023 Substance Abuse - Denies Substance Abuse, 11/18/2023 Tobacco 10 or more cigarettes (1/2 pack or more)/day in last 30 days Tobacco Use:. Smokeless tobacco user within last 30 days Smokeless Tobacco Use:. Cigarettes, Oral, 0.5 per day. Started age 18.0 Years. Yes, 11/18/2023 Family History Acute myocardial infarction: Father. COPD: Mother. Heart disease: Father. Hypertension: Sister. Hypothyroidism: Sister. Immunizations Vaccine Date Status SARS-CoV-2 (COVID-19) mRNA BNT-162b2 vax 08/29/2021 Recorded SARS-CoV-2 (COVID-19) mRNA BNT-162b2 vax 08/08/2021 [facility]edPrem[facility] HealthComment on above:Result Comment: Electronically Signed By: Cl OG MD\Date and Time Signed: 11/18/23 13:31 [id number] Note CONSULTATION CONSULTATION DATE: 10/05/2022 TO: Dr. Soto HISTORY OF PRESENT ILLNESS: Patient returns today [...] T12 appears to be stable on today's visit.[id number] NotePAIN MANAGEMENT CONSULTATION CONSULTATION DATE: 09/23/2022 TO: Dr. Soto CHIEF COMPLAINT: Severe mid lumbar, upper lumbar [...] us on his response to change in medication.[facility] Evaluation + Plan note Future Appointments Appointment Date:12/02/2023 09:30:00 AM Scheduled Provider: Location:[facility] Services Appointment Type:Surgery FT [facility] course Narrative No data available for this section [facility] Hospital Discharge instructions No data available for this section [facility] Progress note No data available for this section [facility] Summary Purpose Family History No Family History Records FoundNo Family History Records Found No data available for this section No data available for this section No data available for this section No Family History Records Found Advance Directives No Advanced Directives Records FoundNo Advanced Directives Records FoundNo Advanced Directives Records Found Additional Source Comments (unrecognized sect ion and content) No Status Records FoundNo Status Records FoundNo Status Records Found INFORMATION SOURCE (unrecogn ized section and content) DATE CREATED AUTHOR 09/04/2022 [facility] DATE CREATED AUTHOR AUTHOR'S ORGANIZ ATION 11/08/2022 [facility] DATE CREATED AUTHOR AUTHOR'S ORGANIZ ATION 12/18/2023 [facility] Patient Care team informatio n (unrecognized section and content) Personnel Name: Syed oSto MD Address: Address: [address] [place] [address] Personnel Name: Syed Soto MD Address: Address: [address] [place] [address] Personnel Name: Syed Soto MD Address: Address: [address] [place] [address] FOR RECORDS PERTAINING TO PATIENTS WHO ARE [...] BE BASED ON THE PRIMARY CLINICAL RECORDS. [facility]. provides no warranty or guarantee of the accuracy or completeness of information in this document.
[2024-06-03 17:41] LABS: Basophils Absolute Auto 0.1 10^3/uL (0.0-0.1); Basophils Percent Auto 1.3 % (0.2-2.0); Eosinophils Absolute Auto 0.2 10^3/uL (0.0-0.7); Eosinophils Percent Auto 3.4 % (0.9-7.0); Hematocrit 42.5 % (42.0-54.0); Hemoglobin 15.3 g/dL (14.0-18.0); Immature Granulocytes Abs Auto 0.02 10^3/uL (0.00-0.03); Immature Granulocytes Pct Auto 0.3 % (0.0-0.5); Lymphocytes Absolute Auto 2.2 10^3/uL (1.2-3.8); Lymphocytes Percent Auto 32.4 % (20.5-60.0); Mean Corpuscular Hemoglobin 32.8 pg (25.9-34.0); Mean Corpuscular Volume 91.2 fL (80.0-94.0); Mean Platelet Volume 8.5 fL (9.5-13.5); Monocytes Absolute Auto 0.5 10^3/uL (0.3-0.8); Monocytes Percent Auto 7.2 % (1.7-12.0); Neutrophils Absolute Auto 3.7 10^3/uL (1.4-6.5); Neutrophils Percent Auto 55.4 % (43.0-75.0); Platelet Count 274 10^3/uL (150-450); Red Blood Count 4.66 10^6/uL (4.70-6.10); Red Cell Distribution Width 12.7 % (11.0-15.0); White Blood Count 6.7 10^3/uL (4.0-11.0)
[2024-06-03 17:43] LABS: Bilirubin Urine NEGATIVE (NEGATIVE); Blood Urine NEGATIVE (NEGATIVE); Clarity Urine CLEAR (CLEAR); Color Urine LT. YELLOW (YELLOW); Glucose Urine UA NEGATIVE (NEGATIVE); Ketones Urine NEGATIVE (NEGATIVE); Leukocyte Esterase Urine NEGATIVE (NEGATIVE); Nitrite Urine NEGATIVE (NEGATIVE); Protein Urine NEGATIVE (NEG/TRACE); Specific Gravity Urine <=1.005 (1.005-1.025); Urobilinogen Urine 0.2 EU/dL (0.2-1.0)
--- NOTE | 2024-06-03 17:44 | ECG_ITS ---
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
[2024-06-03 17:46] LABS: Urine Microscopic Indicated NO
[2024-06-03 17:56] LABS: Magnesium 2.1 mg/dL (1.8-2.4)
[2024-06-03 18:03] LABS: Alanine Aminotransferase 29 U/L (16-63); Albumin Globulin Ratio 0.7; Albumin Level 3.3 g/dL (3.4-5.0); Alkaline Phosphatase 82 U/L (46-116); Aspartate Amino Transferase 40 U/L (15-37); BUN Creatinine Ratio 3.7; Bilirubin Total 0.4 mg/dL (0.2-1.0); Calcium 8.5 mg/dL (8.5-10.1); Carbon Dioxide 29.4 mmol/L (21.0-32.0); Estimated GFR (African America >60 (>=60 mL/min/1.73m^2); Estimated GFR (Non-African Ame >60 (>=60 mL/min/1.73m^2); Ethanol 162 mg/dL; Globulin 4.6 g/dL; Glucose 80 mg/dL (74-106); Total Protein 7.9 g/dL (6.4-8.2)
[2024-06-03 18:09] LABS: Anion Gap 12.5; Chloride 88 mmol/L (98-107); Potassium 3.9 mmol/L (3.5-5.1); Sodium 126 mmol/L (136-145)
--- NOTE | 2024-06-03 18:44 | ED_ITS ---
HPI HPI - General Adult General Chief complaint: Weakness Stated complaint: WEAKNESS Time Seen by Provider: 06/03/24 17:33 Source: patient Mode of arrival: walk-in Limitations: no limitations History of Present Illness HPI narrative: The patient is coming to us with nonspecific symptoms of being generally weak although he does drink daily sixpacks of beer The patient denies any nausea vomiting headache or any other complaints he also denies any numbness tingling or any weakness He mentioned that he have a history of low potassium and he is worried about it Related Data Home Medications ?Medication ?Instructions ?Recorded ?Confirmed metoprolol tartrate 25 mg tablet 25 mg PO Q12H 06/03/24 06/03/24 Allergies Allergy/AdvReac Type Severity Reaction Status Date / Time Penicillins AdvReac Severe Unknown Verified 06/03/24 17:19 Opioid HPI Opioid Management Most Recent Opioid Data: No Data to Display Review of Systems ROS Status of ROS 10 or more systems reviewed and unremark able except as noted in history and below PFSH PFSH Social History Little interest or pleasure in doing things: not at all Feeling down, depressed, or hopeless: not at all Exam Narrative Exam Narrative: Nurses notes and vital signs reviewed and patient is not hypoxic. General: Well-appearing and in no apparent distress. Skin: Warm, dry, no pallor noted. No rash. Head: Normocephalic, atraumatic. Neck: Supple, non-tender. Eye: Pupils are equal, round and EOMI. No scleral icterus. Ears, Nose, Mouth, and Throat: TM are clear, no nasal mucosal hypertrophy. Oral mucosa is moist, no posterior oropharynx erythema, uvula is mid-line Cardiovascular: Regular Rate and Rhythm without murmur, gallop or rub. Respiratory: No accessory muscle use or respiratory distress. Lungs are clear to auscultation, no wheezing, rales or rhonchi Chest Wall: no tenderness Back: No midline thoracic or lumbar vertebral tenderness. No CVA tenderness Musculoskeletal: normal ROM, no calf or popliteal tenderness, no lower extremity edema/swelling GI: Abdomen is soft, non-distended. Normal bowel sounds. No masses appreciated. No tenderness to palpation. No rebound, guarding, or rigidity noted. Neurological: A&O x4. No cranial nerve dysfunction observed. No truncal ataxia. Moves all extremities. Sensation intact. Psychiatric: Cooperative and interactive. Normal mood and affect. Constitutional Vital Signs, click to edit/add: Last Vital Signs Temp 97.7 F 06/03/24 17:15 Pulse 71 06/03/24 17:15 Resp 18 06/03/24 17:15 BP 125/89 06/03/24 17:15 Pulse Ox 96 06/03/24 17:15 Course Vital Signs Vital signs: Vital Signs Temperature 97.7 F 06/03/24 17:15 Pulse Rate 71 06/03/24 17:15 Respiratory Rate 18 06/03/24 17:15 Blood Pressure 125/89 06/03/24 17:15 Pulse Oximetry 96 06/03/24 17:15 Temperature 97.7 F 06/03/24 17:15 Pulse Rate 71 06/03/24 17:15 Respiratory Rate 18 06/03/24 17:15 Blood Pressure 125/89 06/03/24 17:15 Pulse Oximetry 96 06/03/24 17:15 Medical Decision Making MDM Narrative Medical decision making narrative: The patient EKG showing sinus rhythm with a heart rate of 73 the patient does not have any ST elevation or depression he have elevated presentation sign multiple leads This EKG was obtained for electrolyte disturbance the patient does not have any complaint of chest pain Right now the patient blood workup showed that he have alcohol level of 162 The patient sodium is 126 the potassium and magnesium are within normal There is no baseline sodium level that I can compare the sodium level to and the patient right now presenting to us with nonspecific symptoms the patient will be hydrating for the next 24 hours and he will follow-up with Dr. Soto tomorrow to repeat the test The patient to come back in case of any new symptoms or any concerns Lab Data Labs: Lab Results 06/03/24 06/03/24 Range/Units 17:23 17:34 WBC 6.7 (4.0-11.0) 10^3/uL RBC 4.66 L (4.70-6.10) 10^6/uL Hgb 15.3 (14.0-18.0) g/dL Hct 42.5 (42.0-54.0) % MCV 91.2 (80.0-94.0) fL MCH 32.8 (25.9-34.0) pg MCHC 36.0 H (29.9-35.2) g/dL RDW 12.7 (11.0-15.0) % Plt Count 274 (150-450) 10^3/uL MPV 8.5 L (9.5-13.5) fL Neut % (Auto) 55.4 (43.0-75.0) % Lymph % (Auto) 32.4 (20.5-60.0) % [place] % (Auto) 7.2 (1.7-12.0) % Eos % (Auto) 3.4 (0.9-7.0) % Baso % (Auto) 1.3 (0.2-2.0) % Neut # (Auto) 3.7 (1.4-6.5) 10^3/uL Lymph # (Auto) 2.2 (1.2-3.8) 10^3/uL [place] # (Auto) 0.5 (0.3-0.8) 10^3/uL Eos # (Auto) 0.2 (0.0-0.7) 10^3/uL Baso # (Auto) 0.1 (0.0-0.1) 10^3/uL Abs Immat Gran (auto) 0.02 (0.00-0.03) 10^3/uL Imm/Tot Granulo (auto) 0.3 (0.0-0.5) % Sodium 126 L (136-145) mmol/L Potassium 3.9 (3.5-5.1) mmol/L Chloride 88 L (98-107) mmol/L Carbon Dioxide 29.4 (21.0-32.0) mmol/L Anion Gap 12.5 BUN 3.0 L (7.0-18.0) mg/dL Creatinine 0.82 (0.70-1.30) mg/dL Est GFR ( Amer) >60 (>=60 mL/min/1.73m^2) Est GFR (Non-Af Amer) >60 (>=60 mL/min/1.73m^2) BUN/Creatinine Ratio 3.7 Glucose 80 (74-106) mg/dL Calcium 8.5 (8.5-10.1) mg/dL Magnesium 2.1 (1.8-2.4) mg/dL Total Bilirubin 0.4 (0.2-1.0) mg/dL AST 40 H (15-37) U/L ALT 29 (16-63) U/L Alkaline Phosphatase 82 (46-116) U/L Total Protein 7.9 (6.4-8.2) g/dL Albumin 3.3 L (3.4-5.0) g/dL Globulin 4.6 g/dL Albumin/Globulin Ratio 0.7 Urine Color Lt. yellow (YELLOW) Urine Clarity Clear (CLEAR) Urine pH 6.0 (5.0-9.0) Ur Specific [place] <=1.005 A (1.005-1.025) Urine Protein Negative (NEG/TRACE) mg/dL Urine Glucose (UA) Negative (NEGATIVE) mg/dL Urine Ketones Negative (NEGATIVE) mg/dL Urine Occult Blood Negative (NEGATIVE) Urine Nitrite Negative (NEGATIVE) Urine Bilirubin Negative (NEGATIVE) Urine Urobilinogen 0.2 (0.2-1.0) EU/dL Ur Leukocyte Esterase Negative (NEGATIVE) Ethanol Quant 162 mg/dL Discharge Plan Discharge Chief Complaint: Weakness Clinical Impression: Hyponatremia, Alcohol abuse Patient Disposition: Home, Self-Care Time of Disposition Decision: 18:44 Condition: Good Prescriptions / Home Meds: No Action metoprolol tartrate 25 mg tablet 25 mg PO Q12H Print Language: Mal[place]ian Instructions: Hyponatremia (ED), Abuse of Alcohol (DC) Additional Instructions: Please call Dr. Soto tomorrow and make appointment to repeat the test within 24 hours after hydration at home Referrals: Zachariah Soto MD [Primary Care Provider] - 1 week
== END 2024-06-03 19:04 | disposition home or self-care (01) ==
PROVIDERS: Emergency Provider Emergency Medicine; PCP Family Medicine
DX: E87.1 Hypo-osmolality and hyponatremia (principal); F10.10 Alcohol abuse, uncomplicated; Y90.6 Blood alcohol level of 120-199 mg/100 ml
CPT/HCPCS: 36415; 80053; 80320; 81003; 83735; 85025; 93005; 99285

== ENCOUNTER 2024-06-05 15:43 | Outpatient (OUT) | payer OTHER, SELFPAY ==
[2024-06-05 16:36] LABS: Anion Gap 13.2; BUN Creatinine Ratio 8.2; Calcium 9.2 mg/dL (8.5-10.1); Carbon Dioxide 27.9 mmol/L (21.0-32.0); Chloride 96 mmol/L (98-107); Estimated GFR (African America >60 (>=60 mL/min/1.73m^2); Estimated GFR (Non-African Ame >60 (>=60 mL/min/1.73m^2); Glucose 93 mg/dL (74-106); Potassium 4.1 mmol/L (3.5-5.1); Sodium 133 mmol/L (136-145)
== END 2024-06-05 15:44 | disposition home or self-care (01) ==
PROVIDERS: PCP Family Medicine; Visit Provider Family Medicine
DX: E87.1 Hypo-osmolality and hyponatremia (principal)
CPT/HCPCS: 36415; 80048

== ENCOUNTER 2024-10-19 10:40 | Outpatient (OUT) | payer OTHER, SELFPAY ==
--- NOTE | 2024-10-19 | XR_ITS ---
[place] [id number] Patient Name: TRAY MEZA MRN: [id number] date: 1965 Sex: M Assigned Patient Location: Current Patient Location: Accession/Order Number: [id number] Exam Date: 10/19/2024 12:29 Report Date: 10/19/2024 12:30 At the request of: GIANNA RAINES MD Procedure: XR lumbar spine min 4V LUMBAR SPINE - 4 views CLINICAL HISTORY: T12 COMPRESSION FRACTURE COMPARISON: Lumbar spine 08/05/2023 FINDINGS: Lumbar spine vertebral body and disc space heights appear maintained. Mild endplate and facet joint degenerative changes. T12 compression deformity is partially visualized on today's study. SI joints demonstrate degenerative change. XR/XR lumbar spine min 4V IMPRESSION: DEGENERATIVE CHANGES INVOLVING THE LUMBAR SPINE WITHOUT SIGNIFICANT DISC HEIGHT LOSS. Impression dictated by: Tray Castro Jr., DWestleyOWestley10/19/2024 12:30 PM Dictation Location: [place] [address] Electronically authenticated by: [id number] Y Date: 10/19/2024 12:30
--- NOTE | 2024-10-19 | XR_ITS ---
The [address] [address] Patient Name: TRAY MEZA MRN: [id number] date: 1965 Sex: M Assigned Patient Location: Current Patient Location: Accession/Order Number: [id number] Exam Date: 10/19/2024 12:49 Report Date: 10/19/2024 12:54 At the request of: GIANNA RAINES MD Procedure: XR thoracic spine 2V THORACIC SPINE - - 2 views CLINICAL HISTORY: T12 compression fracture. COMPARISON: Thoracic spine 08/05/2023. FINDINGS: Compression deformity T12 vertebral body is grossly unchanged when compared to the prior study. Additional mild compression deformities are noted involving the thoracic spine also unchanged. Scattered endplate degenerative changes. Pedicles appear intact. XR/XR thoracic spine 2V IMPRESSION: COMPRESSION DEFORMITIES INVOLVING THE THORACIC SPINE GROSSLY UNCHANGED FROM THE PRIOR STUDY. NO NEW COMPRESSION DEFORMITY IS SEEN. Impression dictated by: Tray Castro Jr., DWestleyOWestley10/19/2024 12:54 PM Dictation Location: [place] [address] Electronically authenticated by: [id number] Y Date: 10/19/2024 12:54
--- OUTSIDE RECORDS SUMMARY | 2024-10-19 11:04 | XMS_ITS | CCD ---
Author Organization [facility] Care Team Providers Care Executive Assistant To President Name Role Phone Syed Soto Primary Care [...] Unavailable HOY ., DR LYNCH Admitting Unavailable MANHATTAN, DR ROLY Rothman Consulting Unavailable HOY ., [...] Ana vailable Syed Soto Primary Care Physician [phone] Cl OG R Attending Unavailable NILL, Cl R Attending Unavailable NILL, Cl R Referring Unavailable NILL, Cl R Attending Unavailable NILL, Cl R Admitting Unavailable Allergies Allergy Classification Reported Allergen(s) Allergy Type Date of Onset Reaction(s) Facility (1 source) Penicillins Drug allergy (disorder) 03-13-2020 [facility] Repository (1 source) Penicillins Drug allergy (disorder) 12-13-2015 [facility] Repository (4 sources) Penicillin; Translations: [penicillin] Drug Allergy General Surgery [place] Medications Current Medications Medication Drug Class(es) Dates [...] Vaccine Date Status SARS-CoV-2 (COVID-19) mRNA BNT-162b2 flx 08/29/2021 Recorded SARS-CoV-2 (COVID-19) mRNA BNT-162b2 vax 08/08/2021 Recorded Normal [facility] Comment on above: Result Comment: Elec tronically Signed By: LENKA ANTOINE, Cl Schmidt\.br\Date and Time Signed: 12/15/23 16:33 EDT Postoperative Documentson Postoperative Documents [id number]. 00TIFF Normal [facility] IntraOperative Documentson 0 12-06-2023 IntraOperative Documents [id number] .00TIFF Normal [facility] Consenton 12-05-2023 Consent [id number]. 00TIFF Normal [facility] Discharge Instructionson Discharge Instructions [id number]#1. 00TIFF Normal [facility] Main OR Intraoperative Recor don 12-05-2023 Main OR Intraoperative Record IntraOp Document Type FT Summary Primary Physician: Cl OG MD Finalized Date/Time: 12/05/23 07:49:06 Pt. Name: SUSANATRAY/Sex: 1965 Male Med Rec #: [id number] Physician: Cl OG MD Financial #: [id number] Pt. Type: O Room/Bed: / Admit/Disch: 12/02/23 06:44:54 - 12/02/23 23:59:59 Institution: Case Times FT Entry 1 Patient Times In Room 12/02/23 07:48:00 Out Room 12/02/23 08:18:00 Procedure Times Start 12/02/23 07:53:00 Stop 12/02/23 08:09:00 Anesthesia Times Start 12/02/23 07:48:00 Stop 12/02/23 08:18:00 Time at [facility] 12/02/23 07:57:00 Last Modified By: Emilio CESPEDES, Jordy Morales 12/02/23 08:19:54 General Comments: 12/05/2023 Chart opened for charge review per Nima Burt RN. [place] Case Attendance FT Entry 1 Entry 2 Entry 3 Case Attendee Keith Helton Micala E NILL MD, Cl Schmidt Role Performed Anesthesiologist Scrub - Primary Surgeon - Primary Credit Risk Review Officer Time In 12/02/23 07:48:00 12/02/23 07:48:00 12/02/23 07:48:00 Time Out 12/02/23 08:18:00 12/02/23 08:18:00 12/02/23 08:18:00 Procedure COLONOSCOPY(.) COLONOSCOPY(.) COLONOSCOPY(.) Comments Dr. Dewitt supervising case Last Modified By: Emilio RN, Jordy Jhaveri RN, Jordy Sommers RN 12/02/23 08:19:55 12/02/23 08:19:55 12/02/23 08:19:55 Entry 4 Case Attendee Jordy Jhaveri RN Role Performed Coil Former - Primary Time In 12/02/23 07:48:00 Time [...] Leg Position (more content not included)... Normal [facility] Colonoscopy Procedure Report on 12-02-2023 Colonoscopy Procedure [...] Impression and Plan Diagnosis: Frequent loose stools (NTB98-MR R19.7, Discharge, Medical). Recommendations: Repeat colonoscopy:: In 10 years, Depends on pathology . Follow-up:: Await biopsy results in 3-5 days. Diet:: High fiber. Medication resumption:: Continue current medications. Return to activities:: After 24 hours. Education and Follow-up: Counseled: Family. Tyler [facility] Comment on above: Other Comment: Yuki pedraza Attachment - attachment storage system not supported [id number] Can be viewed in source system Missing Attachment - attachment storage system not supported [id number] Can be viewed in source system Missing Attachment - attachment storage system not supported [id number] Can be viewed in source system Consent for Treatmenton Consent for Treatment [id number] 0TIFF Tyler Turpin [facility] Discharge Instructionson Discharge Instructions TRAY MEZA :1965 [...] days Where: [place] [address] [place], [address] [address]- Business (1) Medications What How [...] these hear (more content not included)... Normal [facility] Comment on above: Result Comment: Elec tronically Signed By: Edgar CESPEDES, Elsa\.br\Date and Time Signed: 12/02/23 08:19 EDT Inpatient Patient Summaryon 12-02-2023 Inpatient Patient Summary [place] [id number] [facility] Clinical Discharge Instructions PERSON INFORMATION Name: TRAY MEZA Yasmeen PHYSICIANS Admitting Physician: Cl OG MD Attending Physician: Cl OG MD PCP: Syed Soto MD Discharge Diagnosis: Frequent loose stools Comment: PATIENT EDUCATION INFORMATION Instructions: Medication Leaflets: Follow up: With: Address: When: Cl OG [address] [place] [address], [address], [place] [address] [facility] () Within 7 to 10 days MEDICATION LIST Medications to Continue with No Changes Other Medications metoprolol (Lopressor 25 mg oral tablet) 1 Tablets By Mouth every day. naproxen (naproxen 500 mg Tab) 1 Tablets By Mouth 2 times a day. Comment: Normal [facility] Main OR PACU I Recordon Main OR PACU I Record PACU Phase I Docum ent Type FT Summary Primary Physician: Cl OG MD Finalized Date/Time: 12/02/23 08:55:35 Pt. Name: SARTHAKTRAY ELISE /Sex: 1965 Male Med Rec #: [id number] Physician: Cl OG MD Financial #: [id number] Pt. Type: O Room/Bed: / Admit/Disch: 12/02/23 [...] By: Elsa Hernández RN 12/02/23 08:55 Normal [facility] Main OR Preoperative Recordo n 12-02-2023 Main OR Preoperative Record Holding Area Document Type FT Summary Primary Physician: Cl OG MD Finalized Date/Time: 12/02/23 07:04:57 Pt. Name: TRAY MEZA Yasmeen WatsonB./Sex: 1965 Male Med Rec #: [id number] Physician: Cl OG MD Financial #: [id number] Pt. Type: O Room/Bed: / Admit/Disch: 12/02/23 [...] By: Ivanna Tate RN 12/02/23 07:04 Normal [facility] Monitor Recordon 12-02-2023 Monitor Record [id number]. 00TIFF [facility] Monitor Record [id number]. 00TIFF Normal [facility] Outpatient Surgery Discharge Instructionon 12-02-2023 Outpatient Surgery Discharge Instruction [place] [id number] Patient Discharge Instructions PERSON INFORMATION Name: ANABrayanTRAY [...] With: Address: When: Cl [place], [address], [facility] [address] [id number] Business (1) Within 7 to 10 days [...] to serve you. Thank you for choosing [facility] HERE ARE THE MEDICATION CHANGES THAT OCCURRED DURING YOUR HOSPITAL STAY Medications to Continue with No Changes Other Medications metoprolol (Lopressor 25 mg oral tablet) 1 Tablets By Mouth every day. naproxen (naproxen 500 mg Tab) 1 Tablets By Mouth 2 times a day. PATIENT EDUCATION INFORMATION Instructions: Medication Leaflets: [facility] Patient Education - Texton 0 12-02-2023 Patient [...] or gets worse throughout the day. Normal [facility] Progress Note-Physicianon Progress Note-Physician Patient: TRAY MEZA Age: 58 years Sex: Male : 1965 Associated Diagnoses: None Author: Adriano Dewitt Jr., DO Postoperative Information Postoperative disposition: Postoperative disposition: Home. Optimetrix number: Optimetrix number [id number]. Anesthetic utilized: General. Physical Examination Vital Signs [...] Surgery Unit, and To home ). Normal [facility] Comment on above: Result Comment: Elec tronically [...] list: All Problems Alcoholism / SNOMED CT 84597475 / Confirmed Anxiety / SNOMED CT 80621737 / Confirmed Change in bowel habits / SNOMED CT 176177258 / Confirmed Frequent loose stools / SNOMED CT 055002865 / Confirmed Insomnia / SNOMED CT 339196998 / Confirmed Memory loss / SNOMED CT 40496649 / Confirmed Sinus tachycardia / SNOMED CT 06196614 / Confirmed Histories Past Medical History: No active or resolved past medical history items have been selected or recorded. Procedure history: Tonsillectomy (839817320). Vasectomy (26409193). Simple dental extraction (342957558). Arthroscopy of knee (392767764). Social History Social & Psychosocial Habits Alcohol [...] Respirations are non-labored. Cardiovascular: Regular rhythm. Plan [place] [employer] (ASA) physical status classification: Class III. Anesthetic Preoperative Plan: Anesthesia General, and -TIVA. Normal [facility] Comment on above: Result Comment: Elec tronically Signed By: Adriano Dewitt Jr., DO.babar\Date and Time Signed: 12/02/23 07:14 EDT Consent for Procedure/Surger yon 11-21-2023 Consent for Procedure/Surgery [id number] 0TIFF [facility] Insurance Correspondenceon 0 11-21-2023 Insurance Correspondence [id number]. 00TIFF [facility] Ambulatory Visit Summaryon 0 11-18-2023 Ambulatory Visit [...] for choosing us for your care. Normal [facility] Lab Reportson 11-15-2023 Lab Reports [id number] 0TIFF Normal [facility] Physician Referralon 024 Physician Referral [id number] 0TIFF Normal [facility] MRI TSPINE WO CONon 09-08-19 23 MRI [...] ROLY JAMA Date: 2022-09-08 18:55 Normal [facility] INSULINon 09-01-2022 Insulin 1.7 uIU/mL Critically low 2.6-24.9 [facility] Comment on above: Performed By: #### I NSULIN #### [facility] Laboratory [address] [address] [address] Deedee Pryor TESTOSTERONE, TOTALon 2022 Testosterone [Mass/Vol] 593 ng/dL Normal 264-916 [facility] Comment on above: Result Comment: Adul t male reference interval is based on a population of healthy nonobese males (BMI <30) between 19 and 39 years old. agusto Yoder.al. JCEM 2017,102;6615-7442. PMID: 32061009. Performed By: #### T ESTTOT #### [facility] Laboratory [address] [place] [address] Dr. Deedee Pryor CBC AUTO DIFFon 08-31-2022 BASO # 0.1 103/ul Normal 0.0-0.1 [facility] Comment on above: Performed By: #### C BC #### [facility] Laboratory [address] [place] [address] Dr. Deedee Pryor Basophils/100 WBC (Bld) 0.9 % Normal 0.2-2.0 [facility] Comment on above: Performed By: #### C BC #### [facility] Laboratory [address] [place] [address] Dr. Deedee Pryor EO # 0.1 103/ul Normal 0.0-0.7 [facility] Comment on above: Performed By: #### C BC #### [facility] Laboratory [address] [place] [address] Dr. Deedee Pryor Eosinophils/100 WBC (Bld) 1.4 % Normal 0.9-7.0 [facility] Comment on above: Performed By: #### C BC #### [facility] Laboratory [address] [place] [address] Dr. Deedee Pryor Erythrocyte distribution width (RBC) [Ratio] 12.9 % Normal 11.0-15.0 [facility] Comment on above: Performed By: #### C BC #### [facility] [address] [place] [address] Dr. Deedee Pryor Hematocrit (Bld) [Volume fraction] 42.9 % Normal 42.0-54.0 [facility] Comment on above: Performed By: #### C BC #### [facility] [address] [place] [address] Dr. Deedee Pryor Hemoglobin (Bld) [Mass/Vol] 15.1 g/dL Normal 14.0-18.0 [facility] Comment on above: Performed By: #### C BC #### [facility] [address] [place] [address] Dr. Deedee Pryor IG # 0.02 10e3/ul Normal 0.00-0.03 [facility] Comment on above: Performed By: #### C BC #### [facility] [address] [place] [address] Dr. Deedee Pryor IG % 0.2 % Normal 0.0-0.5 [facility] Comment on above: Performed By: #### C BC #### [facility] Laboratory [address] [place] [address] Dr. Deedee Pryor LYMPH # 1.2 103/ul Normal 1.2-3.8 [facility] Comment on above: Performed By: #### C BC #### [facility] Laboratory [address] [place] [address] Dr. Deedee Pryor Lymphocytes/100 WBC (Bld) 13.6 % Critically low 20.5-60.0 [facility] Comment on above: Performed By: #### C BC #### [facility] [address] [place] [address] Dr. Deedee Pryor MANUAL DIFF REQ NO Normal [facility] Comment on above: Performed By: #### C BC #### [facility] [address] [place] [address] Dr. Deedee Pryor MCH (RBC) [Entitic mass] 31.9 pg Normal 25.9-34.0 [facility] Comment on above: Performed By: #### C BC #### [facility] Laboratory [address] [place] [address] Dr. Deedee Pryor MCHC (RBC) [Mass/Vol] 35.2 g/dL Normal 29.9-35.2 [facility] Comment on above: Performed By: #### C BC #### [facility] Laboratory [address] [place] [address] Dr. Deedee Pryor MCV (RBC) [Entitic vol] 90.7 fL Normal 80.0-94.0 [facility] Comment on above: Performed By: #### C BC #### [facility] Laboratory [address] [place] [address] Dr. Deedee Pryor MONO # 0.7 103/ul Normal 0.3-0.8 [facility] Comment on above: Performed By: #### C BC #### [facility] Laboratory [address] [place] [address] Dr. Deedee Pryor Monocytes/100 WBC (Bld) 8.3 % Normal 1.7-12.0 [facility] Comment on above: Performed By: #### C BC #### [facility] Laboratory [address] [place] [address] Dr. Deedee Pryor NEUT # 6.6 103/ul Critically high 1.4-6.5 [facility] Comment on above: Performed By: #### C BC #### [facility] Laboratory [address] [place] [address] Dr. Deedee Pryor Neutrophils/100 WBC (Bld) 75.6 % Critically high 43.0-75.0 [facility] Comment on above: Performed By: #### C BC #### [facility] Laboratory [address] [place] [address] Dr. Deedee Pryor Platelet mean volume (Bld) [Entitic vol] 8.3 fL Critically low 9.5-13.5 [facility] Comment on above: Performed By: #### C BC #### [facility] Laboratory [address] [place] [address] Dr. Deedee Pryor PLT 286 103/ul Normal 150-450 [facility] Comment on above: Performed By: #### C BC #### [facility] Laboratory [address] [place] [address] Dr. Deedee Pryor RBC 4.73 106/ul Normal 4.70-6.10 [facility] Comment on above: Performed By: #### C BC #### [facility] Laboratory [address] [place] [address] Dr. Deedee Pryor WBC 8.7 103/ul Normal 4.0-11.0 [facility] Comment on above: Performed By: #### C BC #### [facility] Laboratory [address] [place], [place] [id number] Dr. Deedee Pryor CT LUNG CANCER SCREENINGon [...] by: AYDIN ABAD Date: 2022-08-31 15:40 Normal [facility] FREE THYROXINE INDEX T7on FTI 2.03 Normal 1.30-4.50 [facility] Comment on above: Performed By: #### T 7, LIPID, TSH, URIC, CMP ####[facility] [address] [place] [address]Dr. Deedee Pryor T3U 35.0 % Normal 33.0-40.0 [facility] Comment on above: Performed By: #### T 7, LIPID, TSH, URIC, CMP ####[facility] [address] [place] [address]Dr. Deedee Pryor T4 [Mass/Vol] 5.80 ug/dL Normal 4.50-12.10 [facility] Comment on above: Performed By: #### T 7, LIPID, TSH, URIC, CMP ####[facility] [address] [place] [id number]. Deedee Pryor GLYCOHEMOGLOBIN A1Con 2022 ADA RECOMMENDATION SEE BELOW Normal [facility] Comment on above: Result Comment: ADA RECOMMENDED LIMIT 4.0 - 6.0 ADA THERAPEUTIC TARGET < 7.0 ACTION SUGGESTED > 7.0 Performed By: #### A 1C ####[facility] [address] [place] [address]DrWestley Pryor Glucose [Mass/Vol] 97 mg/dL Normal [facility] Comment on above: Performed By: #### A 1C ####[facility] [address] [place] [phone]. Deedee Pryor HbA1c (Bld) [Mass fraction] 5.0 % Normal 4.5-6.2 [facility] Comment on above: Performed By: #### A 1C ####[facility] [address] [place] [id number]. Deedee Pryor LIPID PROFILEon 08-31-2022 CHOL-HDL RATIO NORM SEE BELOW Normal [facility] Comment on above: Result Comment: 3.3 - 4.4 LOW RISK 4.4 - 7.1 AVERAGE RISK 7.1 - 11.0 MODERATE RISK >11.0 HIGH RISK Performed By: #### T 7, LIPID, TSH, URIC, CMP ####[facility] [address] [place] [address]Dr. Deedee Pryor Cholesterol [Mass/Vol] 183 mg/dL Normal <=200 [facility] Comment on above: Performed By: #### T 7, LIPID, TSH, URIC, CMP ####[facility] [address] [place] [id number]. Deedee Pryor Cholesterol in HDL [Mass/Vol] 123 mg/dL Critically high 40-60 [facility] Comment on above: Performed By: #### T 7, LIPID, TSH, URIC, CMP ####[facility] [address] [place] [phone]. Deedee Pryor Cholesterol in LDL [Mass/Vol] 52.0 mg/dL Normal [facility] Comment on above: Performed By: #### T 7, LIPID, TSH, URIC, CMP ####[facility] [address] [place] [phone]. Deedee Pryor Cholesterol.total/Cho lesterol in HDL [Mass ratio] 1.5 {ratio} Normal [facility] Comment on above: Performed By: #### T 7, LIPID, TSH, URIC, CMP ####[facility] [address] [place] [id number]. Deedee Pryor HDL NORMAL > or = 60 mg/dl - LO W CARDIOVASCULAR RISK <40 mg/dl - HIGH CARDIOVASCULAR RISK Normal [facility] Comment on above: Performed By: #### T 7, LIPID, TSH, URIC, CMP ####[facility] [address] [place] [address]Dr. Deedee Pryor LDL CALC NORMAL SEE BELOW Normal [facility] Comment on above: Result Comment: <100 mg/dl OPTIMAL 100 - 129 mg/dl NEAR OR ABOVE OPTIMAL 130 - 159 mg/dl BORDERLINE HIGH 160 - 189 mg/dl HIGH >190 mg/dl VERY HIGH Performed By: #### T 7, LIPID, TSH, URIC, CMP ####[facility] [address] [place] [address]Dr. Deedee Pryor Triglyceride [Mass/Vol] 40 mg/dL Normal <=150 [facility] Comment on above: Performed By: #### T 7, LIPID, TSH, URIC, CMP ####[facility] [address] [place] [address]Dr. Deedee Pryor VLDL CALC 8.0 mg/dL Normal [facility] Comment on above: Performed By: #### T 7, LIPID, TSH, URIC, CMP ####[facility] [address] [place] [address]Dr. Deedee Pryor PROF 14(COMP METB)on 023 Albumin [Mass/Vol] 4.4 g/dL Normal 3.4-5.0 [facility] Comment on above: Performed By: #### T 7, LIPID, TSH, URIC, CMP ####[facility] [address] [place] [address]Dr. Deedee Pryor Albumin/Globulin [Mass ratio] 1.2 {ratio} Normal [facility] Comment on above: Performed By: #### T 7, LIPID, TSH, URIC, CMP ####[facility] [address] [place] [address]Dr. Deedee Pryor ALP [Catalytic activity/Vol] 91 U/L Normal 46-116 [facility] Comment on above: Performed By: #### T 7, LIPID, TSH, URIC, CMP ####[facility] [address] [place] [address]Dr. Deedee Pryor ALT [Catalytic activity/Vol] 26 U/L Normal 16-63 [facility] Comment on above: Performed By: #### T 7, LIPID, TSH, URIC, CMP ####[facility] [address] [place] [address]Dr. Deedee Pryor Anion gap [Moles/Vol] 17.0 mmol/L Normal [facility] Comment on above: Performed By: #### T 7, LIPID, TSH, URIC, CMP ####[facility] [address] [place], [place] [address]Dr. Deedee Pryor AST [Catalytic activity/Vol] 29 U/L Normal 15-37 [facility] Comment on above: Performed By: #### T 7, LIPID, TSH, URIC, CMP ####[facility] [address] [place], [place] [address]Dr. Deedee Pryor Bilirubin [Mass/Vol] 0.5 mg/dL Normal 0.2-1.0 [facility] Comment on above: Performed By: #### T 7, LIPID, TSH, URIC, CMP ####[facility] [address] [place], [place] [address]Dr. Deedee Pryor Calcium [Mass/Vol] 9.3 mg/dL Normal 8.5-10.1 [facility] Comment on above: Performed By: #### T 7, LIPID, TSH, URIC, CMP ####[facility] [address] [place], [place] [address]Dr. Deedee Pryor Chloride [Moles/Vol] 93 mmol/L Critically low 98-107 [facility] Comment on above: Performed By: #### T 7, LIPID, TSH, URIC, CMP ####[facility] [address] [place], [place] [address]Dr. Deedee Pryor CO2 [Moles/Vol] 27.8 mmol/L Normal 21.0-32.0 [facility] Comment on above: Performed By: #### T 7, LIPID, TSH, URIC, CMP ####[facility] [address] [place], [place] [address]Dr. Deedee Pryor Creatinine [Mass/Vol] 0.81 mg/dL Normal 0.70-1.30 [facility] Comment on above: Performed By: #### T 7, LIPID, TSH, URIC, CMP ####[facility] [facility] [id number] [place] [address]Dr. Deedee Pryor EGFR-AF NICARAGUAN >60 Normal >=60 [facility] Comment on above: Performed By: #### T 7, LIPID, TSH, URIC, CMP ####[facility] [address] [place], [place] [address]Dr. Deedee Pryor EGFR-NON AF NICARAGUAN >60 Normal >=60 The [facility] Comment on above: Performed By: #### T 7, LIPID, TSH, URIC, CMP ####[facility] E[address] [place], [place] [address]Dr. Deedee Pryor Globulin (S) [Mass/Vol] 3.7 g/dL Normal The [facility] Comment on above: Performed By: #### T 7, LIPID, TSH, URIC, CMP ####[facility] [address] [place], [place] [address]Dr. Helenazita Pryor Glucose [Mass/Vol] 92 mg/dL Normal 74-106 [facility] Comment on above: Performed By: #### T 7, LIPID, TSH, URIC, CMP ####[facility] [address] [place], [place] [address]Dr. Deedee Pryor Potassium [Moles/Vol] 4.8 mmol/L Normal 3.5-5.1 The [facility] Comment on above: Performed By: #### T 7, LIPID, TSH, URIC, CMP ####[facility] [address] [place], [place] [address]Dr. Deedee Pryor Protein [Mass/Vol] 8.1 g/dL Normal 6.4-8.2 [facility] Comment on above: Performed By: #### T 7, LIPID, TSH, URIC, CMP ####[facility] [address] [place], [place] [address]Dr. Deedee Pryor Sodium [Moles/Vol] 133 mmol/L Critically low 136-145 Th [facility] Comment on above: Performed By: #### T 7, LIPID, TSH, URIC, CMP ####[facility] [address] [place] [id number]. Deedee Pryor Urea nitrogen [Mass/Vol] 7.0 mg/dL Normal 7.0-18.0 [facility] Comment on above: Performed By: #### T 7, LIPID, TSH, URIC, CMP ####[facility] [address] [place] [id number]. Deedee Pryor Urea nitrogen/Creatinine [Mass ratio] 8.6 mg/mg Normal [facility] Comment on above: Performed By: #### T 7, LIPID, TSH, URIC, CMP ####[facility] [address] [place] [address]Dr. Deedee Pryor TSHon 08-31-2022 TSH 0.976 uIU/mL Normal 0.358-3.740 [facility] Comment on above: Performed By: #### T 7, LIPID, TSH, URIC, CMP #### [facility] Laboratory [address] [place], [place] [address] Dr. Deedee Pryor URIC ACID SERUMon 08-31-2022 Urate [Mass/Vol] 3.9 mg/dL Normal 3.5-7.2 [facility] Comment on above: Performed By: #### T 7, LIPID, TSH, URIC, CMP ####[facility] [address] [place] [id number]. Deedee Pryor XR LSPINE MIN 4 VIEWSon [...] by: AYDIN ABAD Date: 2022-08-31 09:32 Normal [facility] Vital Signs Date Time Vital Sign Value Performing Clinician Keke hare 12-02-2023 08:40-0400 Blood Pressure Location Cl NILL [facility] 12-02-2023 08:40-0400 Diastolic blood pressure 81 mm[Hg] Cl NILL [facility] 12-02-2023 08:40-0400 Heart rate 66 /min Cl NILL [facility] 12-02-2023 08:40-0400 Mean blood pressure 95 mm[Hg] Cl NILL [facility] 12-02-2023 08:40-0400 Respiratory rate 20 /min Cl NILL [facility] 12-02-2023 08:40-0400 SaO2% (BldA) [Mass fraction] 100 % Cl NILL [facility] 12-02-2023 08:40-0400 Systolic blood pressure 123 mm[Hg] Cl NILL [facility] 12-02-2023 08:25-0400 Blood Pressure Location Cl NILL [facility] 12-02-2023 08:25-0400 Diastolic blood pressure 76 mm[Hg] Cl NILL [facility] 12-02-2023 08:25-0400 Heart rate 64 /min Cl NILL [facility] 12-02-2023 08:25-0400 Mean blood pressure 91 mm[Hg] Cl NILL [facility] 12-02-2023 08:25-0400 Respiratory rate 15 /min Cl NILL [facility] 12-02-2023 08:25-0400 SaO2% (BldA) [Mass fraction] 99 % Cl NILL [facility] 12-02-2023 08:25-0400 Systolic blood pressure 121 mm[Hg] Cl NILL [facility] 12-02-2023 08:20-0400 Blood Pressure Location Cl NILL [facility] 12-02-2023 08:20-0400 Diastolic blood pressure 70 mm[Hg] Cl NILL [facility] 12-02-2023 08:20-0400 Heart rate 70 /min Cl NILL [facility] 12-02-2023 08:20-0400 Mean blood pressure 83 mm[Hg] Cl NILL [facility] 12-02-2023 08:20-0400 Respiratory rate 17 /min Cl NILL [facility] 12-02-2023 08:20-0400 SaO2% (BldA) [Mass fraction] 98 % Cl NILL [facility] 12-02-2023 08:20-0400 Systolic blood pressure 109 mm[Hg] Cl NILL [facility] 12-02-2023 08:13-0400 Body temperature 98.06 [degF] Cl NILL [facility] 12-02-2023 08:10-0400 Respiratory rate 15 /min Cl NILL [facility] 12-02-2023 08:05-0400 Respiratory rate 15 /min Cl NILL [facility] 12-02-2023 06:55-0400 Body temperature 96.8 [degF] Cl NILL [facility] 11-18-2023 13:00-0400 Blood Pressure Location Cl NILL [facility] 11-18-2023 13:00-0400 Diastolic blood pressure 88 mm[Hg] Cl NILL [facility] 11-18-2023 13:00-0400 Heart rate 69 /min Cl NILL [facility] 11-18-2023 13:00-0400 Respiratory rate 16 /min Cl NILL [facility] 11-18-2023 13:00-0400 Systolic blood pressure 149 mm[Hg] Cl NILL [facility] Encounters Encounter Date Encounter Type Care Provider Facility Start: 12-15-2023 End: 12-16-2023 ambulatory Cl R NILL Facility:[facility] Start: 12-15-2023 End: 12-15-2023 Patient encounter procedure Cl R NILL [facility] Start: 12-12-2023 ambulatory Cl NILL Facility:[facility] Start: 12-02-2023 End: 12-03-2023 ambulatory Cl R NILL Facility:[facility] Start: 12-02-2023 End: 12-02-2023 Patient encounter procedure Cl R NILL [facility] Start: 11-18-2023 End: 11-19-2023 ambulatory Cl R NILL Facility:[facility] Start: 11-18-2023 End: 11-18-2023 Patient encounter procedure Cl R NILL [facility] [place] Start: 11-11-2023 ambulatory Cl OG Facility:[facility] Start: 10-05-2022 End: 10-06-[address] SYED SOTO . Facility:[facility] Start: 09-23-2022 End: 09-24-[address] SYED SOTO . Facility:[facility] Start: 09-08-2022 End: 09-09-[address] SYED SOTO . Facility:[facility] Start: 09-01-2022 Encounter for genera l adult medical examination without abnormal findings DR SYED SOTO . The [facility] Start: 08-31-2022 End: 09-01-[address] SYED SOTO . Facility:[facility] Start: 08-31-2022 End: 09-01-2022 Encounter for general adult medical examination without abnormal findings DR SYED SOTO . Facility:[facility] Start: 08-24-2021 End: 08-24-2021 Emergency department patient visit Syed Soto Facility:[facility] Procedures Date Procedure Procedure Detail Performing Clinician Start: 12-02-2023 Colonoscopy Cl NI LL Start: 08-31-[address] ANJALI SOTO . Comment on above: Performed By: #### P [facility] #### [facility] Laboratory [address] [place] [address] Dr. Deedee Pryor Arthroscopy of knee Cl OG Simple extraction of tooth Jenny estevez LENKA Tonsillectomy Cl ALEXL Vasectomy Cl NILL Immunizations Immunization Date Immunization Notes Care Provider Fa cility 08-29-2021 SARS-CoV-2 (COVID-19 ) mRNA BNT-162b2 vax Cl JOHNSONL [facility] [place] 08-08-2021 SARS-CoV-2 (COVID-19 ) mRNA BNT-162b2 vax Cl NILL [facility] [place] Payers Date Payer Category Payer Self-pay 2021 Unknown [id number] 1965 Unknown [id number] 2.16.84 [id number] 1965 Unknown [id number] 2.16.84 [id number] 1965 Unknown [id number] 2.16.84 [id number] 1965 Unknown [id number] 2.16.84 [id number] 1965 Unknown [id number] 2.16.8 [id number] 1966 Unknown [id number] 2.16.8 [id number] 1966 Unknown [id number] 2.16.8 [id number] 1959 Unknown [id number] Unknown [id number] 2.16.8 [id number] Social History Date Type Detail Facility Start: 11-18-2023 Tobacco smoking status Heavy t obacco smoker (finding) [facility] Tobacco smoking status Smokeless tobacco user within last 30 days [facility] Sex Assigned At Male [facility] Functional Status Date Assessment Result Facility 12-02-2023 Functional Status N/A [facility] 11-18-2023 Functional Status N/A [facility] Clinical Notes 09-23-2022 to 12-05-2023 Note Date & Type Note Facility 12-05-2023 Note [id number]#1.00TIFF [facility] 12-02-2023 Evaluation + Plan note Extrac jose from: Title:ANES Post-operative Note - General Author: Adriano Dewitt Jr., DO Date:12/02/23 Plan Transfer/Discharge: Transfer/Discharge Discharge when meets criteria ( From PACU to Ambulatory Surgery Unit, and To home ). Extracted from: Title:ANES Pre-operative Note - Endo Author:Winston fierro Jr. Adriano POSADA Date:12/02/23 Plan [place] [employer] (ASA) physical status classification: Class III. Anesthetic Preoperative Plan: Anesthesia General, and -TIVA. [facility]05-03-2024 NotePatient: TRAY MEZA Age: 58 years Sex: Male : 1965 Associated Diagnoses: None Author: Cl OG MD Subjective no changes to [facility]ccess [facility] DaytonComment on above:Result Comment: Electronically Signed By: Cl OG MD\.br\Date and Time Signed: 12/02/23 09:01 [id number] Hospital Discharge instructions Patient Education 12/02/2023 08:18:57 Colonoscopy, Care After Surgery Salam (CUSTOM) Colonoscopy Care After Surgery Please read the instructions outlined below and refer to this sheet in the next few weeks. These discharge instructions provide you with general information on [facility] Your doctor may also give you specific [...] Up Care 11/18/2023 13:29:53 With:Cl OG Address: [address] [place] [address] [place], [address] [place] [id number] Business (1) When:7 to 10 days [facility]04-19-2024 NoteChief Complaint consultation for diarrhea HPI Staff [...] Recorded SARS-CoV-2 (COVID-19) mRNA BNT-162b2 vax 08/08/2021 RecordedPark[facility] Montpelier HospitalComment on above:Result Comment: Electronically Signed By: Cl OG MD\Date and Time Signed: 11/18/23 13:31 [id number] Note CONSULTATION CONSULTATION DATE: 10/05/2022 TO: Dr. [...] appears to be stable on today's visit.[id number] NotePAIN MANAGEMENT CONSULTATION CONSULTATION DATE: 09/23/2022 TO: [...] on his response to change in medication.The [facility] Evaluation + Plan note Future Appointments Appointment Date:12/02/2023 09:30:00 AM Scheduled Provider: Location:[facility] Appointment Type:Surgery FT [facility] course Narrative No data available for this section [facility] Hospital Discharge instructions No data available for this section [facility] Progress note No data available for this section [facility] Summary Purpose Family History No Family History [...] section and content) DATE CREATED AUTHOR 09/04/2022 [facility] DATE CREATED AUTHOR AUTHOR'S ORGANIZ ATION 11/08/2022 [facility] DATE CREATED AUTHOR AUTHOR'S ORGANIZ ATION 12/18/2023 [facility] Patient Care team informatio n (unrecognized section and content) Personnel Name: Syed Soto MD Address: Address: [address] [place] [address] Personnel Name: Syed Soto MD Address: Address: [address] [place] [address] Personnel Name: Syed Soto MD Address: Address: [address] [place] [address] FOR RECORDS PERTAINING TO PATIENTS WHO ARE [...] BE BASED ON THE PRIMARY CLINICAL RECORDS. [employer] [facility]. provides no warranty or guarantee of the accuracy or completeness of information in this document.
== END 2024-10-19 10:41 | disposition home or self-care (01) ==
LOC: EC 10:41
PROVIDERS: PCP Family Medicine; Visit Provider Orthopaedic Surgery Orthopaedic Surgery of the Spine
DX: M48.54XD Collapsed vertebra, not elsewhere classified, thoracic region, subsequent encounter for fracture with routine healing (principal); M54.9 Dorsalgia, unspecified; M51.369 Other intervertebral disc degeneration, lumbar region without mention of lumbar back pain or lower extremity pain
CPT/HCPCS: 72070; 72110

== ENCOUNTER 2024-11-08 14:56 | Outpatient (OUT) | payer OTHER, SELFPAY ==
--- NOTE | 2024-11-08 14:59 | MR_ITS ---
The [address] [address] Patient Name: TRAY MEZA MRN: [id number] date: 1965 Sex: M Assigned Patient Location: MRI Current Patient Location: MRI Accession/Order Number: [id number] Exam Date: 11/08/2024 16:43 Report Date: 11/08/2024 16:52 At the request of: ÁLVARO CORONEL Procedure: MR thoracic spine wo con MRI THORACIC SPINE WITHOUT CONTRAST TECHNIQUE: T1, T2 and STIR sagittal imaging performed with T1 and T2 axial imaging of thoracic spine performed HISTORY: Mid back pain. T8, T9 and T12 compression fractures chronic thoracic pain COMPARISON: 09/08/2022 LOCALIZATION IMAGING FINDINGS: Unremarkable BONY ALIGNMENT: Adequate segmental alignment identified. BONY LESIONS: None FRACTURE: Anterior wedge fracture at T12 stable. Anterior fracture at T8-T9 stable. DEGENERATION: Multilevel thoracic spondylosis. T8-9 partial fusion of vertebral bodies. Anterior T7 vertebral body Modic change. FACET ALIGNMENT: Adequate BONY CENTRAL CANAL: Unremarkable SPINAL CORD: Unremarkable NEUROFORAMEN Patent SOFT TISSUES: No paraspinal abnormality is identified. VISUALIZED LUNGS: Unremarkable VISUALIZED AORTA: The visualized aorta is unremarkable. VISUALIZED KIDNEYS: No obstructive uropathy identified. MR/MR thoracic spine wo con IMPRESSION: Stable T8, T9 T12 compression deformities. No new compression deformities. Patent central canal. No cord compression. Impression dictated by: Omid Hernandez M.D.11/08/2024 4:52 PM Dictation Location: [place] [address] Electronically authenticated by: [id number] Y Date: 11/08/2024 16:52
--- OUTSIDE RECORDS SUMMARY | 2024-11-08 15:18 | XMS_ITS | CCD ---
Author Organization [facility] CliniSyde Care Team Providers Care Member Of Parliament Name Role Phone Syed Soto Primary Care [...] Unavailable HOY ., DR LYNCH Admitting Unavailable LAKE JUNALUSKA, DR ROLY Rothman Consulting Unavailable HOY ., [...] Ana vailable Syed Soto Primary Care Physician [phone] Cl OG R Attending Unavailable NILL, Cl R Attending Unavailable NILL, Cl R Referring Unavailable NILL, Cl R Attending Unavailable NILL, Cl R Admitting Unavailable Allergies Allergy Classification Reported Allergen(s) Allergy Type Date of Onset Reaction(s) Facility (1 source) Penicillins Drug allergy (disorder) 03-13-2020 [facility] Repository (1 source) Penicillins Drug allergy (disorder) 12-13-2015 [facility] Repository (4 sources) Penicillin; Translations: [penicillin] Drug Allergy General Surgery [place] Medications Current Medications Medication Drug Class(es) Dates [...] Vaccine Date Status SARS-CoV-2 (COVID-19) mRNA BNT-162b2 mdx 08/29/2021 Recorded SARS-CoV-2 (COVID-19) mRNA BNT-162b2 vax 08/08/2021 Recorded Normal [facility] Comment on above: Result Comment: Elec tronically Signed By: LENKA ANTOINE, Cl Schmidt\.br\Date and Time Signed: 12/15/23 16:33 EDT Postoperative Documentson Postoperative Documents [id number]. 00TIFF Normal [facility] IntraOperative Documentson 0 12-06-2023 IntraOperative Documents [id number] .00TIFF Normal [facility] Consenton 12-05-2023 Consent [id number]. 00TIFF Normal [facility] Discharge Instructionson Discharge Instructions [id number]#1. 00TIFF Normal [facility] Main OR Intraoperative Recor don 12-05-2023 Main OR Intraoperative Record IntraOp Document Type FT Summary Primary Physician: Cl OG MD Finalized Date/Time: 12/05/23 07:49:06 Pt. Name: SUSANATRAY/Sex: 1965 Male Med Rec #: [id number] Physician: Cl OG MD Financial #: [id number] Pt. Type: O Room/Bed: / Admit/Disch: 12/02/23 [...] Anesthesiologist Scrub - Primary Surgeon - Primary Bonded Structures Repairer Time In 12/02/23 07:48:00 12/02/23 07:48:00 12/02/23 07:48:00 Time Out 12/02/23 08:18:00 12/02/23 08:18:00 12/02/23 08:18:00 Procedure COLONOSCOPY(.) COLONOSCOPY(.) COLONOSCOPY(.) Comments Dr. Dewitt supervising case Last Modified By: Emilio RN, Jordy Jhaveri RN, Jordy Sommers RN 12/02/23 08:19:55 12/02/23 08:19:55 12/02/23 08:19:55 Entry 4 Case Attendee Jordy Jhaveri RN Role Performed Varnish Blender - Primary Time In 12/02/23 07:48:00 Time [...] Leg Position (more content not included)... Normal [facility] Colonoscopy Procedure Report on 12-02-2023 Colonoscopy Procedure Report Patient: TRAY MEZA Age: 58 years Sex: Male : 1965 Associated Diagnoses: None Author: Cl OG MD Pre-Procedure Procedure Date 12/02/2023 08:15:00 . Procedure Type: Colonoscopy with biopsy. Procedure provider Performed by Cl OG MD. Referred by Syed Soot MD. Current history and physical Documented on [...] Impression and Plan Diagnosis: Frequent loose stools (WGB32-IR R19.7, Discharge, Medical). Recommendations: Repeat colonoscopy:: In 10 years, Depends on pathology . Follow-up:: Await biopsy results in 3-5 days. Diet:: High fiber. Medication resumption:: Continue current medications. Return to activities:: After 24 hours. Education and Follow-up: Counseled: Family. [facility] Comment on above: Other Comment: Yuki pedraza Attachment - attachment storage system not supported [id number] Can be viewed in source system Missing Attachment - attachment storage system not supported [id number] Can be viewed in source system Missing Attachment - attachment storage system not supported [id number] Can be viewed in source system Consent for Treatmenton Consent for Treatment [id number] 0TIFF [facility] Discharge Instructionson Discharge Instructions TRAY [...] days Where: [place], [address] [address]- Business (1) Medications What How [...] these hear (more content not included)... Normal [facility] Comment on above: Result Comment: Elec tronically Signed By: Edgar CESPEDES, Elsa\.br\Date and Time Signed: 12/02/23 08:19 EDT Inpatient Patient Summaryon 12-02-2023 Inpatient Patient Summary [place] [address] [facility] Clinical Discharge Instructions PERSON INFORMATION Name: TRAY MEZA Yasmeen PHYSICIANS Admitting Physician: Cl OG MD Attending Physician: Cl OG MD PCP: Syed Soto MD Discharge Diagnosis: Frequent loose stools Comment: PATIENT EDUCATION INFORMATION Instructions: Medication Leaflets: Follow up: With: Address: When: Cl OG [address] [place] [address], [address], [place] [address] [facility] () Within 7 to 10 days MEDICATION LIST Medications to Continue with No Changes Other Medications metoprolol (Lopressor 25 mg oral tablet) 1 Tablets By Mouth every day. naproxen (naproxen 500 mg Tab) 1 Tablets By Mouth 2 times a day. Comment: Normal [facility] Main OR PACU I Recordon Main OR PACU I Record PACU Phase I Docum ent Type FT Summary Primary Physician: Cl OG MD Finalized Date/Time: 12/02/23 08:55:35 Pt. Name: SARTHAKTRAY ELISE /Sex: 1965 Male Med Rec #: [id number] Physician: Cl OG MD Financial #: [id number] Pt. Type: O Room/Bed: / Admit/Disch: 12/02/23 [...] By: Elsa Hernández RN 12/02/23 08:55 Normal [facility] Main OR Preoperative Recordo n 12-02-2023 Main OR Preoperative Record Holding Area Document Type FT Summary Primary Physician: Cl OG MD Finalized Date/Time: 12/02/23 07:04:57 Pt. Name: TRAY MEZA Yasmeen WatsonB./Sex: 1965 Male Med Rec #: [id number] Physician: Cl OG MD Financial #: [id number] Pt. Type: O Room/Bed: / Admit/Disch: 12/02/23 [...] By: Ivanna Tate RN 12/02/23 07:04 Normal [facility] Monitor Recordon 12-02-2023 Monitor Record [id number]#1. 00TIFF [facility] Monitor Record [id number]. 00TIFF Normal [facility] Outpatient Surgery Discharge Instructionon 12-02-2023 Outpatient Surgery Discharge Instruction [place] [id number] Patient Discharge Instructions PERSON INFORMATION Name: ANABrayanTRAY [...] With: Address: When: Cl [place], [address], [facility] [address] [place] [id number] Business (1) Within 7 to 10 days [...] to serve you. Thank you for choosing [facility] HERE ARE THE MEDICATION CHANGES THAT OCCURRED DURING YOUR HOSPITAL STAY Medications to Continue with No Changes Other Medications metoprolol (Lopressor 25 mg oral tablet) 1 Tablets By Mouth every day. naproxen (naproxen 500 mg Tab) 1 Tablets By Mouth 2 times a day. PATIENT EDUCATION INFORMATION Instructions: Medication Leaflets: [facility] Patient Education - Texton 0 12-02-2023 Patient [...] or gets worse throughout the day. Normal [facility] Progress Note-Physicianon Progress Note-Physician Patient: TRAY MEZA Age: 58 years Sex: Male : 1965 Associated Diagnoses: None Author: Adriano Dewitt Jr., DO Postoperative Information Postoperative disposition: Postoperative disposition: Home. Optimetrix number: Optimetrix number [id number]. Anesthetic utilized: General. Physical Examination Vital Signs [...] Surgery Unit, and To home ). Normal [facility] Comment on above: Result Comment: Elec [...] list: All Problems Alcoholism / SNOMED CT 82693796 / Confirmed Anxiety / SNOMED CT 66236864 / Confirmed Change in bowel habits / SNOMED CT 485202588 / Confirmed Frequent loose stools / SNOMED CT 697609059 / Confirmed Insomnia / SNOMED CT 281484672 / Confirmed Memory loss / SNOMED CT 26683130 / Confirmed Sinus tachycardia / SNOMED CT 91165985 / Confirmed Histories Past Medical History: No active or resolved past medical history items have been selected or recorded. Procedure history: Tonsillectomy (489684475). Vasectomy (92664808). Simple dental extraction (131091785). Arthroscopy of knee (462920524). Social History Social & Psychosocial Habits Alcohol [...] Respirations are non-labored. Cardiovascular: Regular rhythm. Plan [place] [employer]esthesi[employer] (ASA) physical status classification: Class III. Anesthetic Preoperative Plan: Anesthesia General, and -TIVA. Normal [facility] Comment on above: Result Comment: Elec tronically Signed By: Adriano Dewitt Jr., DO.babar\Date and Time Signed: 12/02/23 07:14 EDT Consent for Procedure/Surger yon 11-21-2023 Consent for Procedure/Surgery [id number] 0TIFF [facility] Insurance Correspondenceon 0 11-21-2023 Insurance Correspondence [id number]. 00TIFF [facility] Ambulatory Visit Summaryon 0 11-18-2023 Ambulatory Visit [...] for choosing us for your care. Normal [facility] Lab Reportson 11-15-2023 Lab Reports [id number] 0TIFF Normal [facility] Physician Referralon 024 Physician Referral [id number] 0TIFF Normal [facility] MRI TSPINE WO CONon 09-08-19 23 [...] ROLY JAMA Date: 2022-09-08 18:55 Normal [facility] INSULINon 09-01-2022 Insulin 1.7 uIU/mL Critically low 2.6-24.9 [facility] Comment on above: Performed By: #### I NSULIN #### [facility] Laboratory [address] [address] [address] Deedee Pryor TESTOSTERONE, TOTALon 2022 Testosterone [Mass/Vol] 593 ng/dL Normal 264-916 [facility] Comment on above: Result Comment: Adul t male reference interval is based on a population of healthy nonobese males (BMI <30) between 19 and 39 years old. agusto Yoder.al. JCEM 2017,102;9650-3120. PMID: [id number]. Performed By: #### T ESTTOT #### [facility] [address] [place] [address] Dr. Deedee Pryor CBC AUTO DIFFon 08-31-2022 BASO # 0.1 103/ul Normal 0.0-0.1 [facility] Comment on above: Performed By: #### C BC #### [facility] [address] [place] [address] Dr. Deedee Pryor Basophils/100 WBC (Bld) 0.9 % Normal 0.2-2.0 [facility] Comment on above: Performed By: #### C BC #### [facility] [address] [place] [address] Dr. Deedee Pryor EO # 0.1 103/ul Normal 0.0-0.7 [facility] Comment on above: Performed By: #### C BC #### [facility] [address] [place] [address] Dr. Deedee Pryor Eosinophils/100 WBC (Bld) 1.4 % Normal 0.9-7.0 [facility] Comment on above: Performed By: #### C BC #### [facility] [address] [place] [address] Dr. Deedee Pryor Erythrocyte distribution width (RBC) [Ratio] 12.9 % Normal 11.0-15.0 [facility] Comment on above: Performed By: #### C BC #### [facility] [address] [place] [address] Dr. Deedee Pryor Hematocrit (Bld) [Volume fraction] 42.9 % Normal 42.0-54.0 [facility] Comment on above: Performed By: #### C BC #### [facility] [address] [place] [address] Dr. Deedee Pryor Hemoglobin (Bld) [Mass/Vol] 15.1 g/dL Normal 14.0-18.0 [facility] Comment on above: Performed By: #### C BC #### [facility] [address] [place] [address] Dr. Deedee Pryor IG # 0.02 10e3/ul Normal 0.00-0.03 [facility] Comment on above: Performed By: #### C BC #### [facility] [address] [place] [address] Dr. Deedee Pryor IG % 0.2 % Normal 0.0-0.5 [facility] Comment on above: Performed By: #### C BC #### [facility] [address] [place] [address] Dr. Deedee Pryor LYMPH # 1.2 103/ul Normal 1.2-3.8 [facility] Comment on above: Performed By: #### C BC #### [facility] [address] [place] [address] Dr. Deedee Pryor Lymphocytes/100 WBC (Bld) 13.6 % Critically low 20.5-60.0 [facility] Comment on above: Performed By: #### C BC #### [facility] [address] [place] [address] Dr. Deedee Pryor MANUAL DIFF REQ NO Normal [facility] Comment on above: Performed By: #### C BC #### [facility] [address] [place] [address] Dr. Deedee Pryor MCH (RBC) [Entitic mass] 31.9 pg Normal 25.9-34.0 [facility] Comment on above: Performed By: #### C BC #### [facility] [address] [place] [address] Dr. Deedee Pryor MCHC (RBC) [Mass/Vol] 35.2 g/dL Normal 29.9-35.2 [facility] Comment on above: Performed By: #### C BC #### [facility] [address] [place] [address] Dr. Deedee Pryor MCV (RBC) [Entitic vol] 90.7 fL Normal 80.0-94.0 [facility] Comment on above: Performed By: #### C BC #### [facility] [address] [place] [address] Dr. Deedee Pryor MONO # 0.7 103/ul Normal 0.3-0.8 [facility] Comment on above: Performed By: #### C BC #### [facility] [address] [place] [address] Dr. Deedee Pryor Monocytes/100 WBC (Bld) 8.3 % Normal 1.7-12.0 [facility] Comment on above: Performed By: #### C BC #### [facility] [address] [place] [address] Dr. Deedee Pryor NEUT # 6.6 103/ul Critically high 1.4-6.5 [facility] Comment on above: Performed By: #### C BC #### [facility] [address] [place] [address] Dr. Deedee Pryor Neutrophils/100 WBC (Bld) 75.6 % Critically high 43.0-75.0 [facility] Comment on above: Performed By: #### C BC #### [facility] [address] [place] [address] Dr. Deedee Pryor Platelet mean volume (Bld) [Entitic vol] 8.3 fL Critically low 9.5-13.5 [facility] Comment on above: Performed By: #### C BC #### [facility] [address] [place] [address] Dr. Deedee Pryor PLT 286 103/ul Normal 150-450 [facility] Comment on above: Performed By: #### C BC #### [facility] [address] [place] [address] Dr. Deedee Pryor RBC 4.73 106/ul Normal 4.70-6.10 [facility] Comment on above: Performed By: #### C BC #### [facility] [address] [place] [address] Dr. Deedee Pryor WBC 8.7 103/ul Normal 4.0-11.0 [facility] Comment on above: Performed By: #### C BC #### [facility] [address] [place], [place] [id number] Dr. Deedee Pryor CT LUNG CANCER SCREENINGon [...] by: AYDIN ABAD Date: 2022-08-31 15:40 Normal [facility] FREE THYROXINE INDEX T7on FTI 2.03 Normal 1.30-4.50 [facility] Comment on above: Performed By: #### T 7, LIPID, TSH, URIC, CMP ####[facility] [address] [place] [address]Dr. Deedee Pryor T3U 35.0 % Normal 33.0-40.0 [facility] Comment on above: Performed By: #### T 7, LIPID, TSH, URIC, CMP ####[facility] [address] [place] [address]Dr. Deedee Pryor T4 [Mass/Vol] 5.80 ug/dL Normal 4.50-12.10 [facility] Comment on above: Performed By: #### T 7, LIPID, TSH, URIC, CMP ####[facility] [address] [place] [id number]. Deedee Pryor GLYCOHEMOGLOBIN A1Con 2022 ADA RECOMMENDATION SEE BELOW Normal [facility] Comment on above: Result Comment: ADA RECOMMENDED LIMIT 4.0 - 6.0 ADA THERAPEUTIC TARGET < 7.0 ACTION SUGGESTED > 7.0 Performed By: #### A 1C ####[facility] [address] [place] [address]DrWestley Pryor Glucose [Mass/Vol] 97 mg/dL Normal [facility] Comment on above: Performed By: #### A 1C ####[facility] [address] [place] [id number]. Deedee Pryor HbA1c (Bld) [Mass fraction] 5.0 % Normal 4.5-6.2 [facility] Comment on above: Performed By: #### A 1C ####[facility] [address] [place] [id number]. Deedee Pryor LIPID PROFILEon 08-31-2022 CHOL-HDL RATIO NORM SEE BELOW Normal [facility] Comment on above: Result Comment: 3.3 - 4.4 LOW RISK 4.4 - 7.1 AVERAGE RISK 7.1 - 11.0 MODERATE RISK >11.0 HIGH RISK Performed By: #### T 7, LIPID, TSH, URIC, CMP ####[facility] [address] [place] [address]Dr. Deedee Pryor Cholesterol [Mass/Vol] 183 mg/dL Normal <=200 [facility] Comment on above: Performed By: #### T 7, LIPID, TSH, URIC, CMP ####[facility] [address] [place] [id number]. Deedee Pryor Cholesterol in HDL [Mass/Vol] 123 mg/dL Critically high 40-60 [facility] Comment on above: Performed By: #### T 7, LIPID, TSH, URIC, CMP ####[facility] [address] [place] [id number]. Deedee Pryor Cholesterol in LDL [Mass/Vol] 52.0 mg/dL Normal [facility] Comment on above: Performed By: #### T 7, LIPID, TSH, URIC, CMP ####[facility] [address] [place] [id number]. Deedee Pryor Cholesterol.total/Cho lesterol in HDL [Mass ratio] 1.5 {ratio} Normal [facility] Comment on above: Performed By: #### T 7, LIPID, TSH, URIC, CMP ####[facility] [address] [place] [id number]. Deedee Pryor HDL NORMAL > or = 60 mg/dl - LO W CARDIOVASCULAR RISK <40 mg/dl - HIGH CARDIOVASCULAR RISK Normal [facility] Comment on above: Performed By: #### T 7, LIPID, TSH, URIC, CMP ####[facility] [address] [place] [address]Dr. Deedee Pryor LDL CALC NORMAL SEE BELOW Normal [facility] Comment on above: Result Comment: <100 mg/dl OPTIMAL 100 - 129 mg/dl NEAR OR ABOVE OPTIMAL 130 - 159 mg/dl BORDERLINE HIGH 160 - 189 mg/dl HIGH >190 mg/dl VERY HIGH Performed By: #### T 7, LIPID, TSH, URIC, CMP ####[facility] [address] [place] [address]Dr. Deedee Pryor Triglyceride [Mass/Vol] 40 mg/dL Normal <=150 [facility] Comment on above: Performed By: #### T 7, LIPID, TSH, URIC, CMP ####[facility] [address] [place] [address]Dr. Deedee Pyror VLDL CALC 8.0 mg/dL Normal [facility] Comment on above: Performed By: #### T 7, LIPID, TSH, URIC, CMP ####[facility] [address] [place] [address]Dr. Deedee Pryor PROF 14(COMP METB)on 023 Albumin [Mass/Vol] 4.4 g/dL Normal 3.4-5.0 [facility] Comment on above: Performed By: #### T 7, LIPID, TSH, URIC, CMP ####[facility] [address] [place] [address]Dr. Deedee Pryor Albumin/Globulin [Mass ratio] 1.2 {ratio} Normal [facility] Comment on above: Performed By: #### T 7, LIPID, TSH, URIC, CMP ####[facility] [address] [place] [address]Dr. Deedee Pryor ALP [Catalytic activity/Vol] 91 U/L Normal 46-116 [facility] Comment on above: Performed By: #### T 7, LIPID, TSH, URIC, CMP ####[facility] [address] [place] [address]Dr. Deedee Pryor ALT [Catalytic activity/Vol] 26 U/L Normal 16-63 [facility] Comment on above: Performed By: #### T 7, LIPID, TSH, URIC, CMP ####[facility] [address] [place] [address]Dr. Deedee Pryor Anion gap [Moles/Vol] 17.0 mmol/L Normal [facility] Comment on above: Performed By: #### T 7, LIPID, TSH, URIC, CMP ####[facility] [address] [place], [place] [address]Dr. Deedee Pryor AST [Catalytic activity/Vol] 29 U/L Normal 15-37 [facility] Comment on above: Performed By: #### T 7, LIPID, TSH, URIC, CMP ####[facility] [address] [place], [place] [address]Dr. Deedee Pryor Bilirubin [Mass/Vol] 0.5 mg/dL Normal 0.2-1.0 [facility] Comment on above: Performed By: #### T 7, LIPID, TSH, URIC, CMP ####[facility] [address] [place], [place] [address]Dr. Deedee Pryor Calcium [Mass/Vol] 9.3 mg/dL Normal 8.5-10.1 [facility] Comment on above: Performed By: #### T 7, LIPID, TSH, URIC, CMP ####[facility] [address] [place], [place] [address]Dr. Deedee Pryor Chloride [Moles/Vol] 93 mmol/L Critically low 98-107 [facility] Comment on above: Performed By: #### T 7, LIPID, TSH, URIC, CMP ####[facility] [address] [place], [place] [address]Dr. Deedee Pryor CO2 [Moles/Vol] 27.8 mmol/L Normal 21.0-32.0 [facility] Comment on above: Performed By: #### T 7, LIPID, TSH, URIC, CMP ####[facility] [address] [place], [place] [address]Dr. Deedee Pryor Creatinine [Mass/Vol] 0.81 mg/dL Normal 0.70-1.30 [facility] Comment on above: Performed By: #### T 7, LIPID, TSH, URIC, CMP ####[facility] [address] [place] [address]Dr. Deedee Pryor EGFR-AF EQUATORIAL GUINEAN >60 Normal >=60 [facility] Comment on above: Performed By: #### T 7, LIPID, TSH, URIC, CMP ####[facility] [address] [place], [place] [address]Dr. Deedee Pryor EGFR-NON AF EQUATORIAL GUINEAN >60 Normal >=60 [facility] Comment on above: Performed By: #### T 7, LIPID, TSH, URIC, CMP ####[facility] [address] [place], [place] [address]Dr. Deedee Pryor Globulin (S) [Mass/Vol] 3.7 g/dL Normal [facility] Comment on above: Performed By: #### T 7, LIPID, TSH, URIC, CMP ####[facility] [address] [place], [place] [address]Dr. Helenazita Pryor Glucose [Mass/Vol] 92 mg/dL Normal 74-106 [facility] Comment on above: Performed By: #### T 7, LIPID, TSH, URIC, CMP ####[facility] [address] [place], [place] [address]Dr. Deedee Pryor Potassium [Moles/Vol] 4.8 mmol/L Normal 3.5-5.1 [facility] Comment on above: Performed By: #### T 7, LIPID, TSH, URIC, CMP ####[facility] [address] [place], [place] [address]Dr. Deedee Pryor Protein [Mass/Vol] 8.1 g/dL Normal 6.4-8.2 [facility] Comment on above: Performed By: #### T 7, LIPID, TSH, URIC, CMP ####[facility] [address] [place], [place] [address]Dr. Deedee Pryor Sodium [Moles/Vol] 133 mmol/L Critically low 136-145 [address] [place] [facility] Comment on above: Performed By: #### T 7, LIPID, TSH, URIC, CMP ####[facility] [id number] [place] [id number]. Deedee Pryor Urea nitrogen [Mass/Vol] 7.0 mg/dL Normal 7.0-18.0 [facility] Comment on above: Performed By: #### T 7, LIPID, TSH, URIC, CMP ####[facility] [id number] [place] [id number]. Deedee Pryor Urea nitrogen/Creatinine [Mass ratio] 8.6 mg/mg Normal [facility] Comment on above: Performed By: #### T 7, LIPID, TSH, URIC, CMP ####[facility] [id number] [place] [address]Dr. Deedee Pryor TSHon 08-31-2022 TSH 0.976 uIU/mL Normal 0.358-3.740 [facility] Comment on above: Performed By: #### T 7, LIPID, TSH, URIC, CMP #### [facility] Laboratory [address], [place] [address] Dr. Deedee Pryor URIC ACID SERUMon 08-31-2022 Urate [Mass/Vol] 3.9 mg/dL Normal 3.5-7.2 [facility] Comment on above: Performed By: #### T 7, LIPID, TSH, URIC, CMP ####[facility] [id number] [place] [id number]. Deedee Pryor XR LSPINE MIN 4 VIEWSon [...] by: AYDIN ABAD Date: 2022-08-31 09:32 Normal [facility] Vital Signs Date Time Vital Sign Value Performing Clinician Keke hare 12-02-2023 08:40-0400 Blood Pressure Location Cl NILL [facility] 12-02-2023 08:40-0400 Diastolic blood pressure 81 mm[Hg] Cl NILL [facility] 12-02-2023 08:40-0400 Heart rate 66 /min Cl NILL [facility] 12-02-2023 08:40-0400 Mean blood pressure 95 mm[Hg] Cl NILL [facility] 12-02-2023 08:40-0400 Respiratory rate 20 /min Cl NILL [facility] 12-02-2023 08:40-0400 SaO2% (BldA) [Mass fraction] 100 % Cl NILL [facility] 12-02-2023 08:40-0400 Systolic blood pressure 123 mm[Hg] Cl NILL [facility] 12-02-2023 08:25-0400 Blood Pressure Location Cl NILL [facility] 12-02-2023 08:25-0400 Diastolic blood pressure 76 mm[Hg] Cl NILL [facility] 12-02-2023 08:25-0400 Heart rate 64 /min Cl NILL [facility] 12-02-2023 08:25-0400 Mean blood pressure 91 mm[Hg] Cl NILL [facility] 12-02-2023 08:25-0400 Respiratory rate 15 /min Cl NILL [facility] 12-02-2023 08:25-0400 SaO2% (BldA) [Mass fraction] 99 % Cl NILL [facility] 12-02-2023 08:25-0400 Systolic blood pressure 121 mm[Hg] Cl NILL [facility] 12-02-2023 08:20-0400 Blood Pressure Location Cl NILL [facility] 12-02-2023 08:20-0400 Diastolic blood pressure 70 mm[Hg] Cl NILL [facility] 12-02-2023 08:20-0400 Heart rate 70 /min Cl NILL [facility] 12-02-2023 08:20-0400 Mean blood pressure 83 mm[Hg] Cl NILL [facility] 12-02-2023 08:20-0400 Respiratory rate 17 /min Cl NILL [facility] 12-02-2023 08:20-0400 SaO2% (BldA) [Mass fraction] 98 % Cl NILL [facility] 12-02-2023 08:20-0400 Systolic blood pressure 109 mm[Hg] Cl NILL [facility] 12-02-2023 08:13-0400 Body temperature 98.06 [degF] Cl NILL [facility] 12-02-2023 08:10-0400 Respiratory rate 15 /min Cl NILL [facility] 12-02-2023 08:05-0400 Respiratory rate 15 /min Cl NILL [facility] 12-02-2023 06:55-0400 Body temperature 96.8 [degF] Cl NILL [facility] 11-18-2023 13:00-0400 Blood Pressure Location Cl NILL [facility] 11-18-2023 13:00-0400 Diastolic blood pressure 88 mm[Hg] Cl NILL [facility] 11-18-2023 13:00-0400 Heart rate 69 /min Lc NILL [facility] 11-18-2023 13:00-0400 Respiratory rate 16 /min Cl NILL [facility] 11-18-2023 13:00-0400 Systolic blood pressure 149 mm[Hg] Cl NILL [facility] Encounters Encounter Date Encounter Type Care Provider Facility Start: 12-15-2023 End: 12-16-2023 ambulatory Cl R NILL Facility:[facility] Start: 12-15-2023 End: 12-15-2023 Patient encounter procedure Cl R NILL [facility] Start: 12-12-2023 ambulatory Cl NILL Facility:[facility] Start: 12-02-2023 End: 12-03-2023 ambulatory Cl R NILL [place] [place]: 12-02-2023 End: 12-02-2023 Patient encounter procedure Cl R NILL [facility] Start: 11-18-2023 End: 11-19-2023 ambulatory Cl R NILL Facility:[facility] Start: 11-18-2023 End: 11-18-2023 Patient encounter procedure Cl R NILL [facility] [place] Start: 11-11-2023 ambulatory Cl OG Facility:[facility] Start: 10-05-2022 End: 10-06-[address] SYED SOTO . Facility:[facility] Start: 09-23-2022 End: 09-24-[address] SYED SOTO . Facility:[facility] Start: 09-08-2022 End: 09-09-[address] SYED SOTO . Facility:[facility] Start: 09-01-2022 Encounter for genera l adult medical examination without abnormal findings DR SYED SOTO . [facility] Start: 08-31-2022 End: 09-01-[address] SYED SOTO . Facility:[facility] Start: 08-31-2022 End: 09-01-2022 Encounter for general adult medical examination without abnormal findings DR SYED SOTO . Facility:[facility] Start: 08-24-2021 End: 08-24-2021 Emergency department patient visit Syed Soto Facility:[facility] Procedures Date Procedure Procedure Detail Performing Clinician Start: 12-02-2023 Colonoscopy Cl NI LL Start: 08-31-[address] ANJALI SOTO . Comment on above: Performed By: #### [facility] #### [facility] [address] [place] [address] Dr. Deedee Pryor Arthroscopy of knee Cl OG Simple extraction of tooth Jenny estevez LENKA Tonsillectomy Cl ALEXL Vasectomy Cl NILL Immunizations Immunization Date Immunization Notes Care Provider Fa cility 08-29-2021 SARS-CoV-2 (COVID-19 ) mRNA BNT-162b2 vax lC [facility] 08-08-2021 SARS-CoV-2 (COVID-19 ) mRNA BNT-162b2 vax Cl NILL [facility] Payers Date Payer Category Payer Self-pay 2021 Unknown [id number] 1965 Unknown [id number] 2.16.84 [id number] 1965 Unknown [id number] 2.16.84 [id number] 1966 Unknown [id number] 2.16.84 [id number] 1966 Unknown [id number] 2.16.84 [id number] 1966 Unknown [id number] 2.16.8 [id number] 1966 Unknown [id number] 2.16.8 [id number] 1966 Unknown [id number] 2.16.8 [id number] 1959 Unknown [id number] Unknown [id number] 2.16.8 [id number] Social History Date Type Detail Facility Start: 11-18-2023 Tobacco smoking status Heavy t obacco smoker (finding) [facility] Tobacco smoking status Smokeless tobacco user within last 30 days [facility] Sex Assigned At Male [facility] Functional Status Date Assessment Result Facility 12-02-2023 Functional Status N/A [facility] 11-18-2023 Functional Status N/A [facility] Clinical Notes 09-23-2022 to 12-05-2023 Note Date & Type Note Facility 12-05-2023 Note [id number] 5#1.00TIFF [facility] 12-02-2023 Evaluation + Plan note Extrac jose from: Title:ANES Post-operative Note - General Author: Adriano Dewitt Jr., DO Date:12/02/23 Plan Transfer/Discharge: Transfer/Discharge Discharge when meets criteria ( From PACU to Ambulatory Surgery Unit, and To home ). Extracted from: Title:ANES Pre-operative Note - Endo Author:Winston fierro Jr. Adriano POSADA Date:12/02/23 Plan [place] [employer] (ASA) physical status classification: Class III. Anesthetic Preoperative Plan: Anesthesia General, and -TIVA. [facility]05-03-2024 NotePatient: TRAY MEZA Age: 58 years Sex: Male : 1965 Associated Diagnoses: None Author: Cl OG MD Subjective no changes to H & PFTrumbull [facility] HospitalComment on above:Result Comment: Electronically Signed By: Cl OG MD\.br\Date and Time Signed: 12/02/23 09:01 [id number] Hospital Discharge instructions Patient Education 12/02/2023 08:18:57 Colonoscopy, Care After Surgery Salam (CUSTOM) Colonoscopy Care After Surgery Please read the instructions outlined below and refer to this sheet in the next few weeks. These discharge instructions provide you with general information on [facility] Your [facility] may also give you [...] Up Care 11/18/2023 13:29:53 With:Cl OG Address: [address] [place] [address] [place], [address] [place] [phone] Business (1) When:7 to 10 days [facility]04-19-2024 NoteChief Complaint consultation for diarrhea HPI Staff [...] Recorded SARS-CoV-2 (COVID-19) mRNA BNT-162b2 vax 08/08/2021 [facility]Comment on [facility]:Result Comment: Electronically Signed By: Cl OG MD\Date and Time Signed: 11/18/23 13:31 [id number] Note CONSULTATION CONSULTATION DATE: 10/05/2022 TO: Dr. [...] appears to be stable on today's visit.[facility] [id number] NotePAIN MANAGEMENT CONSULTATION CONSULTATION DATE: 09/23/2022 TO: [...] on his response to change in medication.[facility] Evaluation + Plan note Future Appointments Appointment Date:12/02/2023 09:30:00 AM Scheduled Provider: Location:[facility] Surgical Services Appointment Type:Surgery FT [facility] [place] [facility] course Narrative No data available for this section [facility] Hospital Discharge instructions No data available for this section [facility] Progress note No data available for this section [facility] Summary Purpose Family History No Family History [...] section and content) DATE CREATED AUTHOR 09/04/2022 [facility] DATE CREATED AUTHOR AUTHOR'S ORGANIZ ATION 11/08/2022 [facility] DATE CREATED AUTHOR AUTHOR'S ORGANIZ ATION 12/18/[address] [facility] Patient Care team informatio n (unrecognized section and content) Personnel Name: Syed Soto MD Address: Address: [address] [place] [address] Personnel Name: Syed Soto MD Address: Address: [address] [place] [address] Personnel Name: Syed Soto MD Address: Address: [address] [place] [address] FOR RECORDS PERTAINING TO PATIENTS WHO ARE [...] BE BASED ON THE PRIMARY CLINICAL RECORDS. [employer] [facility]. provides no warranty or guarantee of the accuracy or completeness of information in this document.
== END 2024-11-08 14:57 | disposition home or self-care (01) ==
LOC: MRI 14:56
PROVIDERS: PCP Family Medicine; Visit Provider Physician Assistant
DX: M54.9 Dorsalgia, unspecified (principal); S22.060D Wedge compression fracture of T7-T8 vertebra, subsequent encounter for fracture with routine healing; S22.070D Wedge compression fracture of T9-T10 vertebra, subsequent encounter for fracture with routine healing; S22.080D Wedge compression fracture of T11-T12 vertebra, subsequent encounter for fracture with routine healing
CPT/HCPCS: 72146

== ENCOUNTER 2025-03-05 07:08 | Outpatient (OUT) | payer OTHER, SELFPAY ==
--- OUTSIDE RECORDS SUMMARY | 2025-03-05 07:13 | XMS_ITS | CCD ---
Author Organization [facility] Care Team Providers Care Sap Solution Manager Consultant Name Role Phone Syed Soto Primary Care [...] Unavailable HOY ., DR LYNCH Admitting Unavailable HAYTI, DR ROLY Rothman Consulting Unavailable HOY ., [...] (1 source) Penicillins Drug allergy (disorder) 03-13-2020 [facility] Repository (1 source) Penicillins Drug allergy (disorder) 12-13-2015 [facility] Repository (4 sources) Penicillin; Translations: [penicillin] Drug Allergy General Surgery Hasty Medications Current Medications Medication Drug Class(es) Dates [...] Vaccine Date Status SARS-CoV-2 (COVID-19) mRNA BNT-162b2 prx 08/29/2021 Recorded SARS-CoV-2 (COVID-19) mRNA BNT-162b2 vax 08/08/2021 Recorded [facility] Comment on above: Result Comment: Elec tronically Signed By: LENKA ANTOINE, Cl Schmidt\.br\Date and Time Signed: 12/15/23 16:33 EDT Postoperative Documentson Postoperative Documents [id number]. 00TIFF Normal [facility] IntraOperative Documentson 0 12-06-2023 IntraOperative Documents [id number] .00TIFF Normal [facility] Consenton 12-05-2023 Consent [id number]. 00TIFF Normal [facility] Discharge Instructionson Discharge Instructions [id number]#1. 00TIFF Normal [facility] Main OR Intraoperative Recor don 12-05-2023 Main OR Intraoperative Record IntraOp Document Type FT Summary Primary Physician: Cl OG MD Finalized Date/Time: 12/05/23 07:49:06 Pt. Name: SUSANATRAY/Sex: 1965 Male Med Rec #: [id number] Physician: Cl OG MD Financial #: [id number] Pt. Type: O Room/Bed: / Admit/Disch: 12/02/23 [...] Anesthesiologist Scrub - Primary Surgeon - Primary Physics And Astronomy Professor Time In 12/02/23 07:48:00 12/02/23 07:48:00 12/02/23 07:48:00 Time Out 12/02/23 08:18:00 12/02/23 08:18:00 12/02/23 08:18:00 Procedure COLONOSCOPY(.) COLONOSCOPY(.) COLONOSCOPY(.) Comments Dr. Dewitt supervising case Last Modified By: Emilio RN, Jordy Jhaveri RN, Jordy Sommers RN 12/02/23 08:19:55 12/02/23 08:19:55 12/02/23 08:19:55 Entry 4 Case Attendee Jordy Jhaveri RN Role Performed Etiquette Teacher - Primary Time In 12/02/23 07:48:00 Time [...] Leg Position (more content not included)... [facility] Colonoscopy Procedure Report on 12-02-2023 Colonoscopy [...] Impression and Plan Diagnosis: Frequent loose stools ([id number] R19.7, Discharge, Medical). Recommendations: Repeat colonoscopy:: In 10 years, Depends on pathology . Follow-up:: Await biopsy results in 3-5 days. Diet:: High fiber. Medication resumption:: Continue current medications. Return to activities:: After 24 hours. Education and Follow-up: Counseled: Family. [facility] Comment on above: Other Comment: Yuki pedraza Attachment - attachment storage system not supported [id number] Can be viewed in source system Missing Attachment - attachment storage system not supported [id number] Can be viewed in source system Missing Attachment - attachment storage system not supported [id number] Can be viewed in source system Consent for Treatmenton Consent for Treatment [id number]#1.0 0TIFF [facility] Discharge Instructionson Discharge Instructions TRAY MEZA :1965 [...] days Where: [place], [address] [address]- Business (1) Medications What How [...] these hear (more content not included)... Normal [facility] Comment on above: Result Comment: Elec tronically Signed By: Edgar CESPEDES, Elsa\.br\Date and Time Signed: 12/02/23 08:19 EDT Inpatient Patient Summaryon 12-02-2023 Inpatient Patient Summary [place] [address] [facility] Clinical Discharge Instructions PERSON INFORMATION Name: TRAY MEZA Yasmeen PHYSICIANS Admitting Physician: Cl OG MD Attending Physician: Cl OG MD PCP: Syed Soto MD Discharge Diagnosis: Frequent loose stools Comment: PATIENT EDUCATION INFORMATION Instructions: Medication Leaflets: Follow up: With: Address: When: Cl OG [address] [place] [address], [address], [place] [address] [facility] () Within 7 to 10 days MEDICATION LIST Medications to Continue with No Changes Other Medications metoprolol (Lopressor 25 mg oral tablet) 1 Tablets By Mouth every day. naproxen (naproxen 500 mg Tab) 1 Tablets By Mouth 2 times a day. Comment: Normal [facility] Main OR PACU I Recordon Main OR PACU I Record PACU Phase I Docum ent Type FT Summary Primary Physician: Cl OG MD Finalized Date/Time: 12/02/23 08:55:35 Pt. Name: SARTHAKTRAY ELISE /Sex: 1965 Male Med Rec #: [id number] Physician: Cl OG MD Financial #: [id number] Pt. Type: O Room/Bed: / Admit/Disch: 12/02/23 [...] By: Elsa Hernández RN 12/02/23 08:55 Normal [facility] Main OR Preoperative Recordo n 12-02-2023 Main OR Preoperative Record Holding Area Document Type FT Summary Primary Physician: Cl OG MD Finalized Date/Time: 12/02/23 07:04:57 Pt. Name: TRAY MEZA Yasmeen WatsonB./Sex: 1965 Male Med Rec #: [id number] Physician: Cl OG MD Financial #: [id number] Pt. Type: O Room/Bed: / Admit/Disch: 12/02/23 [...] By: Ivanna Tate RN 12/02/23 07:04 Normal [facility] Monitor Recordon 12-02-2023 Monitor Record [id number]. 00TIFF [facility] Monitor Record [id number]. 00TIFF [facility] Outpatient Surgery Discharge Instructionon 12-02-2023 Outpatient Surgery Discharge Instruction [place] [id number] Patient Discharge Instructions PERSON INFORMATION Name: ANABrayanTRAY [...] With: Address: When: Cl [place], [address], [facility] [address] [place] [id number] Business (1) Within 7 to 10 days [...] you. Thank you for choosing [facility] HERE ARE THE MEDICATION CHANGES THAT OCCURRED DURING YOUR HOSPITAL STAY Medications to Continue with No Changes Other Medications metoprolol (Lopressor 25 mg oral tablet) 1 Tablets By Mouth every day. naproxen (naproxen 500 mg Tab) 1 Tablets By Mouth 2 times a day. PATIENT EDUCATION INFORMATION Instructions: Medication Leaflets: [facility] Patient Education - Texton 0 12-02-2023 [...] or gets worse throughout the day. [facility] Progress Note-Physicianon Progress Note-Physician Patient: TRAY MEZA Age: 58 years Sex: Male : 1965 Associated Diagnoses: None Author: Adriano Dewitt Jr., DO Postoperative Information Postoperative disposition: Postoperative disposition: Home. Optimetrix number: Optimetrix number [id number]. Anesthetic utilized: General. Physical Examination Vital Signs [...] Surgery Unit, and To home ). Normal [facility] Comment on above: Result Comment: Elec [...] list: All Problems Alcoholism / SNOMED CT 47662662 / Confirmed Anxiety / SNOMED CT 31142638 / Confirmed Change in bowel habits / SNOMED CT 459084521 / Confirmed Frequent loose stools / SNOMED CT 219312432 / Confirmed Insomnia / SNOMED CT 575021492 / Confirmed Memory loss / SNOMED CT 33097941 / Confirmed Sinus tachycardia / SNOMED CT 57615301 / Confirmed Histories Past Medical History: No active or resolved past medical history items have been selected or recorded. Procedure history: Tonsillectomy (554468311). Vasectomy (83057032). Simple dental extraction (879078924). Arthroscopy of knee (326436343). Social History Social & Psychosocial Habits Alcohol [...] Respirations are non-labored. Cardiovascular: Regular rhythm. Plan [place] [employer] (ASA) physical status classification: Class III. Anesthetic Preoperative Plan: Anesthesia General, and -TIVA. [facility] Comment on above: Result Comment: Elec tronically Signed By: Adriano Dewitt Jr., DO.babar\Date and Time Signed: 12/02/23 07:14 EDT Consent for Procedure/Surger yon 11-21-2023 Consent for Procedure/Surgery [id number]#1.0 0TIFF [facility] Insurance Correspondenceon 0 11-21-2023 Insurance Correspondence [id number]#1. 00TIFF [facility] Ambulatory Visit Summaryon 0 11-18-2023 Ambulatory [...] for choosing us for your care. [facility] Lab Reportson 11-15-2023 Lab Reports [id number] 0TIFF [facility] Physician Referralon 024 Physician Referral [id number] 0TIFF Normal [facility] MRI TSPINE WO CONon 09-08-19 23 [...] ROLY JAMA Date: 2022-09-08 18:55 Normal [facility] INSULINon 09-01-2022 Insulin 1.7 uIU/mL Critically low 2.6-24.[address] [facility] Comment on above: Performed By: #### I NSULIN #### [facility] [address] [place] [address] [address] Deedee Pryor TESTOSTERONE, TOTALon 2022 Testosterone [Mass/Vol] 593 ng/dL Normal 264-916 [facility] Comment on above: Result Comment: Adul t male reference interval is based on a population of healthy nonobese males (BMI <30) between 19 and 39 years old. agusto Yoder.al. JCEM 2017,102;2663-5817. PMID: [id number]. Performed By: #### T ESTTOT #### [facility] [address] [place] [address] Dr. Deedee Pryor CBC AUTO DIFFon 08-31-2022 BASO # 0.1 103/ul Normal 0.0-0.1 [facility] Comment on above: Performed By: #### C BC #### [facility] [address] [place] [address] Dr. Deedee Pryor Basophils/100 WBC (Bld) 0.9 % Normal 0.2-2.0 [facility] Comment on above: Performed By: #### C BC #### [facility] [address] [place] [address] Dr. Deedee Pryor EO # 0.1 103/ul Normal 0.0-0.7 [facility] Comment on above: Performed By: #### C BC #### [facility] [address] [place] [address] Dr. Deedee Pryor Eosinophils/100 WBC (Bld) 1.4 % Normal 0.9-7.0 [facility] Comment on above: Performed By: #### C BC #### [facility] [address] [place] [address] Dr. Deedee Pryor Erythrocyte distribution width (RBC) [Ratio] 12.9 % Normal 11.0-15.0 [facility] Comment on above: Performed By: #### C BC #### [facility] [address] [place] [address] Dr. Deedee Pryor Hematocrit (Bld) [Volume fraction] 42.9 % Normal 42.0-54.0 [facility] Comment on above: Performed By: #### C BC #### [facility] [address] [place] [address] Dr. Deedee Pryor Hemoglobin (Bld) [Mass/Vol] 15.1 g/dL Normal 14.0-18.0 [facility] Comment on above: Performed By: #### C BC #### [facility] [address] [place] [address] Dr. Deedee Pryor IG # 0.02 10e3/ul Normal 0.00-0.03 [facility] Comment on above: Performed By: #### C BC #### [facility] [address] [place] [address] Dr. Deedee Pryor IG % 0.2 % Normal 0.0-0.5 [facility] Comment on above: Performed By: #### C BC #### [facility] [address] [place] [address] Dr. Deedee Pryor LYMPH # 1.2 103/ul Normal 1.2-3.8 [facility] Comment on above: Performed By: #### C BC #### [facility] [address] [place] [address] Dr. Deedee Pryor Lymphocytes/100 WBC (Bld) 13.6 % Critically low 20.5-60.0 [facility] Comment on above: Performed By: #### C BC #### [facility] [address] [place] [address] Dr. Deedee Pryor MANUAL DIFF REQ NO Normal [facility] Comment on above: Performed By: #### C BC #### [facility] [address] [place] [address] Dr. Deedee Pryor MCH (RBC) [Entitic mass] 31.9 pg Normal 25.9-34.0 [facility] Comment on above: Performed By: #### C BC #### [facility] [address] [place] [address] Dr. Deedee Pryor MCHC (RBC) [Mass/Vol] 35.2 g/dL Normal 29.9-35.2 [facility] Comment on above: Performed By: #### C BC #### [facility] [address] [place] [address] Dr. Deedee Pryor MCV (RBC) [Entitic vol] 90.7 fL Normal 80.0-94.0 [facility] Comment on above: Performed By: #### C BC #### [facility] [address] [place] [address] Dr. Deedee Pryor MONO # 0.7 103/ul Normal 0.3-0.8 [facility] Comment on above: Performed By: #### C BC #### [facility] [address] [place] [address] Dr. Deedee Pryor Monocytes/100 WBC (Bld) 8.3 % Normal 1.7-12.0 [facility] Comment on above: Performed By: #### C BC #### [facility] [address] [place] [address] Dr. Deedee Pyror NEUT # 6.6 103/ul Critically high 1.4-6.5 [facility] Comment on above: Performed By: #### C BC #### [facility] [address] [place] [address] Dr. Deedee Pryor Neutrophils/100 WBC (Bld) 75.6 % Critically high 43.0-75.0 [facility] Comment on above: Performed By: #### C BC #### [facility] [address] [place] [address] Dr. Deedee Pryor Platelet mean volume (Bld) [Entitic vol] 8.3 fL Critically low 9.5-13.5 [facility] Comment on above: Performed By: #### C BC #### [facility] [address] [place] [address] Dr. Deedee Pryor PLT 286 103/ul Normal 150-450 [facility] Comment on above: Performed By: #### C BC #### [facility] [address] [place] [address] Dr. Deedee Pryor RBC 4.73 106/ul Normal 4.70-6.10 [facility] Comment on above: Performed By: #### C BC #### [facility] [address] [place] [address] Dr. Deedee Pryor WBC 8.7 103/ul Normal 4.0-11.0 [facility] Comment on above: Performed By: #### C BC #### [facility] [address] [place], [place] [address] Dr. Deedee Pryor CT LUNG CANCER SCREENINGon [...] by: AYDIN ABAD Date: 2022-08-31 15:40 Normal [facility] FREE THYROXINE INDEX T7on FTI 2.03 Normal 1.30-4.50 [facility] Comment on above: Performed By: #### T 7, LIPID, TSH, URIC, CMP ####[facility] [address] [place] [address]Dr. Deedee Pryor T3U 35.0 % Normal 33.0-40.0 [facility] Comment on above: Performed By: #### T 7, LIPID, TSH, URIC, CMP ####[facility] [address] [place] [address]Dr. Deedee Pryor T4 [Mass/Vol] 5.80 ug/dL Normal 4.50-12.10 [facility] Comment on above: Performed By: #### T 7, LIPID, TSH, URIC, CMP ####[facility] [address] [place] [id number]. Deedee Pryor GLYCOHEMOGLOBIN A1Con 2022 ADA RECOMMENDATION SEE BELOW Normal [facility] Comment on above: Result Comment: ADA RECOMMENDED LIMIT 4.0 - 6.0 ADA THERAPEUTIC TARGET < 7.0 ACTION SUGGESTED > 7.0 Performed By: #### A 1C ####[facility] [address] [place] [address]DrWestley Pryor Glucose [Mass/Vol] 97 mg/dL Normal [facility] Comment on above: Performed By: #### A 1C ####[facility] [address] [place] [address]Dr. Deedee Pryor HbA1c (Bld) [Mass fraction] 5.0 % Normal 4.5-6.2 [facility] Comment on above: Performed By: #### A 1C ####[facility] [address] [place] [address]Dr. Deedee Pryor LIPID PROFILEon 08-31-2022 CHOL-HDL RATIO NORM SEE BELOW Normal [facility] Comment on above: Result Comment: 3.3 - 4.4 LOW RISK 4.4 - 7.1 AVERAGE RISK 7.1 - 11.0 MODERATE RISK >11.0 HIGH RISK Performed By: #### T 7, LIPID, TSH, URIC, CMP ####[facility] [address] [place] [address]Dr. Deedee Pryor Cholesterol [Mass/Vol] 183 mg/dL Normal <=200 [facility] Comment on above: Performed By: #### T 7, LIPID, TSH, URIC, CMP ####[facility] [address] [place] [address]Dr. Deedee Pryor Cholesterol in HDL [Mass/Vol] 123 mg/dL Critically high 40-60 [facility] Comment on above: Performed By: #### T 7, LIPID, TSH, URIC, CMP ####[facility] [address] [place] [address]Dr. Deedee Pryor Cholesterol in LDL [Mass/Vol] 52.0 mg/dL Normal [facility] Comment on above: Performed By: #### T 7, LIPID, TSH, URIC, CMP ####[facility] [address] [place] [address]Dr. Deedee Pryor Cholesterol.total/Cho lesterol in HDL [Mass ratio] 1.5 {ratio} Normal [facility] Comment on above: Performed By: #### T 7, LIPID, TSH, URIC, CMP ####[facility] [address] [place] [address]Dr. Deedee Pryor HDL NORMAL > or = 60 mg/dl - LO W CARDIOVASCULAR RISK <40 mg/dl - HIGH CARDIOVASCULAR RISK Normal [facility] Comment on above: Performed By: #### T 7, LIPID, TSH, URIC, CMP ####[facility] [address] [place] [address]Dr. Deedee Pryor LDL CALC NORMAL SEE BELOW Normal [facility] Comment on above: Result Comment: <100 mg/dl OPTIMAL 100 - 129 mg/dl NEAR OR ABOVE OPTIMAL 130 - 159 mg/dl BORDERLINE HIGH 160 - 189 mg/dl HIGH >190 mg/dl VERY HIGH Performed By: #### T 7, LIPID, TSH, URIC, CMP ####[facility] [address] [place] [address]Dr. Deedee Pryor Triglyceride [Mass/Vol] 40 mg/dL Normal <=150 [facility] Comment on above: Performed By: #### T 7, LIPID, TSH, URIC, CMP ####[facility] [address] [place] [address]Dr. Deedee Pryor VLDL CALC 8.0 mg/dL Normal [facility] Comment on above: Performed By: #### T 7, LIPID, TSH, URIC, CMP ####[facility] [address] [place] [address]Dr. Deedee Pryor PROF 14(COMP METB)on 023 Albumin [Mass/Vol] 4.4 g/dL Normal 3.4-5.0 [facility] Comment on above: Performed By: #### T 7, LIPID, TSH, URIC, CMP ####[facility] [address] [place] [address]Dr. Deedee Pryor Albumin/Globulin [Mass ratio] 1.2 {ratio} Normal [facility] Comment on above: Performed By: #### T 7, LIPID, TSH, URIC, CMP ####[facility] [address] [place] [address]Dr. Deedee Pryor ALP [Catalytic activity/Vol] 91 U/L Normal 46-116 [facility] Comment on above: Performed By: #### T 7, LIPID, TSH, URIC, CMP ####[facility] [address] [place] [address]Dr. Deedee Pryor ALT [Catalytic activity/Vol] 26 U/L Normal 16-63 [facility] Comment on above: Performed By: #### T 7, LIPID, TSH, URIC, CMP ####[facility] [address] [place] [address]Dr. Deedee Pryor Anion gap [Moles/Vol] 17.0 mmol/L Normal [facility] Comment on above: Performed By: #### T 7, LIPID, TSH, URIC, CMP ####[facility] [address] [place], [place] [address]Dr. Deedee Pryor AST [Catalytic activity/Vol] 29 U/L Normal 15-37 [facility] Comment on above: Performed By: #### T 7, LIPID, TSH, URIC, CMP ####[facility] [address] [place], [place] [address]Dr. Deedee Pryor Bilirubin [Mass/Vol] 0.5 mg/dL Normal 0.2-1.0 [facility] Comment on above: Performed By: #### T 7, LIPID, TSH, URIC, CMP ####[facility] [address] [place], [place] [address]Dr. Deedee Pryor Calcium [Mass/Vol] 9.3 mg/dL Normal 8.5-10.1 [facility] Comment on above: Performed By: #### T 7, LIPID, TSH, URIC, CMP ####[facility] [address] [place], [place] [address]Dr. Deedee Pryor Chloride [Moles/Vol] 93 mmol/L Critically low 98-107 [facility] Comment on above: Performed By: #### T 7, LIPID, TSH, URIC, CMP ####[facility] [address] [place], [place] [address]Dr. Deedee Pryor CO2 [Moles/Vol] 27.8 mmol/L Normal 21.0-32.0 [facility] Comment on above: Performed By: #### T 7, LIPID, TSH, URIC, CMP ####[facility] [address] [place], [place] [address]Dr. Deedee Pryor Creatinine [Mass/Vol] 0.81 mg/dL Normal 0.70-1.30 [facility] Comment on above: Performed By: #### T 7, LIPID, TSH, URIC, CMP ####[facility] [address] [place] [address]Dr. Deedee Pryor EGFR-AF [place] >60 Normal >=60 [facility] Comment on above: Performed By: #### T 7, LIPID, TSH, URIC, CMP ####[facility] [address] [place], [place] [address]Dr. Deedee Pryor EGFR-NON AF [place] >60 Normal >=60 [facility] Comment on above: Performed By: #### T 7, LIPID, TSH, URIC, CMP ####[facility] [address] [place], [place] [address]Dr. Deedee Pryor Globulin (S) [Mass/Vol] 3.7 g/dL Normal [facility] Comment on above: Performed By: #### T 7, LIPID, TSH, URIC, CMP ####[facility] [address] [place], [place] [address]Dr. Helenazita Pryor Glucose [Mass/Vol] 92 mg/dL Normal 74-106 [facility] Comment on above: Performed By: #### T 7, LIPID, TSH, URIC, CMP ####[facility] [address] [place], [place] [address]Dr. Deedee Pryor Potassium [Moles/Vol] 4.8 mmol/L Normal 3.5-5.1 [facility] Comment on above: Performed By: #### T 7, LIPID, TSH, URIC, CMP ####[facility] [address] [place], [place] [address]Dr. Deedee Pryor Protein [Mass/Vol] 8.1 g/dL Normal 6.4-8.2 [facility] Comment on above: Performed By: #### T 7, LIPID, TSH, URIC, CMP ####[facility] [address] [place], [place] [address]Dr. Deedee Pryor Sodium [Moles/Vol] 133 mmol/L Critically low 136-145 [facility] Comment on above: Performed By: #### T 7, LIPID, TSH, URIC, CMP ####[facility] [address] [place] [id number]. Deedee Pryor Urea nitrogen [Mass/Vol] 7.0 mg/dL Normal 7.0-18.0 [facility] Comment on above: Performed By: #### T 7, LIPID, TSH, URIC, CMP ####[facility] [address] [place] [id number]. Deedee Pryor Urea nitrogen/Creatinine [Mass ratio] 8.6 mg/mg Normal [facility] Comment on above: Performed By: #### T 7, LIPID, TSH, URIC, CMP ####[facility] [address] [place] [address]Dr. Deedee Pryor TSHon 08-31-2022 TSH 0.976 uIU/mL Normal 0.358-3.740 [facility] Comment on above: Performed By: #### T 7, LIPID, TSH, URIC, CMP #### [facility] [address] [place], [place] [address] Dr. Deedee Pryor URIC ACID SERUMon 08-31-2022 Urate [Mass/Vol] 3.9 mg/dL Normal 3.5-7.2 [facility] Comment on above: Performed By: #### T 7, LIPID, TSH, URIC, CMP ####[facility] [address] [place] [id number]. Deedee Pryor XR LSPINE MIN 4 VIEWSon [...] by: AYDIN ABAD Date: 2022-08-31 09:32 Normal [facility] Vital Signs Date Time Vital Sign Value Performing Clinician Keke hare 12-02-2023 08:40-0400 Blood Pressure Location Cl NILL [facility] 12-02-2023 08:40-0400 Diastolic blood pressure 81 mm[Hg] Cl N[facility] 12-02-2023 08:40-0400 Heart rate 66 /min Cl N[facility] 12-02-2023 08:40-0400 Mean blood pressure 95 mm[Hg] Cl N[facility] 12-02-2023 08:40-0400 Respiratory rate 20 /min Cl N[facility] 12-02-2023 08:40-0400 SaO2% (BldA) [Mass fraction] 100 % Cl N[facility] 12-02-2023 08:40-0400 Systolic blood pressure 123 mm[Hg] Cl NILL [facility] 12-02-2023 08:25-0400 Blood Pressure Location Cl NILL [facility] 12-02-2023 08:25-0400 Diastolic blood pressure 76 mm[Hg] Cl NILL [facility] 12-02-2023 08:25-0400 Heart rate 64 /min Cl N[facility] 12-02-2023 08:25-0400 Mean blood pressure 91 mm[Hg] Cl NILL [facility] 12-02-2023 08:25-0400 Respiratory rate 15 /min Cl NILL [facility] 12-02-2023 08:25-0400 SaO2% (BldA) [Mass fraction] 99 % Cl NILL [facility] 12-02-2023 08:25-0400 Systolic blood pressure 121 mm[Hg] Cl NILL [facility] 12-02-2023 08:20-0400 Blood Pressure Location Cl NILL [facility] 12-02-2023 08:20-0400 Diastolic blood pressure 70 mm[Hg] Cl NILL [facility] 12-02-2023 08:20-0400 Heart rate 70 /min Cl NILL [facility] 12-02-2023 08:20-0400 Mean blood pressure 83 mm[Hg] Cl NILL [facility] 12-02-2023 08:20-0400 Respiratory rate 17 /min Cl NILL [facility] 12-02-2023 08:20-0400 SaO2% (BldA) [Mass fraction] 98 % Cl NILL [facility] 12-02-2023 08:20-0400 Systolic blood pressure 109 mm[Hg] Cl NILL [facility] 12-02-2023 08:13-0400 Body temperature 98.06 [degF] Cl NILL [facility] 12-02-2023 08:10-0400 Respiratory rate 15 /min Cl NILL [facility] 12-02-2023 08:05-0400 Respiratory rate 15 /min Cl NILL [facility] 12-02-2023 06:55-0400 Body temperature 96.8 [degF] Cl NILL [facility] 11-18-2023 13:00-0400 Blood Pressure Location Cl NILL [facility] 11-18-2023 13:00-0400 Diastolic blood pressure 88 mm[Hg] Cl NILL [facility] 11-18-2023 13:00-0400 Heart rate 69 /min Cl NILL [facility] 11-18-2023 13:00-0400 Respiratory rate 16 /min Cl NILL [facility] 11-18-2023 13:00-0400 Systolic blood pressure 149 mm[Hg] Cl NILL [facility] Encounters Encounter Date Encounter Type Care Provider Facility Start: 12-15-2023 End: 12-16-2023 ambulatory Cl R NILL Facility:[facility] Start: 12-15-2023 End: 12-15-2023 Patient encounter procedure Cl R NILL [facility] Start: 12-12-2023 ambulatory Cl NILL Facility:[facility] Start: 12-02-2023 End: 12-03-2023 ambulatory Cl R NILL Facility:[facility] Start: 12-02-2023 End: 12-02-2023 Patient encounter procedure Cl R NILL [facility] Start: 11-18-2023 End: 11-19-2023 ambulatory Cl R NILL Facility:[facility] Start: 11-18-2023 End: 11-18-2023 Patient encounter procedure Cl R NILL [facility] [place] Start: 11-11-2023 ambulatory Cl OG Facility:[facility] Start: 10-05-2022 End: 10-06-[address] SYED SOTO . Facility:[facility] Start: 09-23-2022 End: 09-24-[address] SYED SOTO . Facility:[facility] Start: 09-08-2022 End: 09-09-[address] SYED SOTO . Facility:[facility] Start: 09-01-2022 Encounter for genera l adult medical examination without abnormal findings DR SYED SOTO . [facility] Start: 08-31-2022 End: 09-01-[address] SYED SOTO . Facility:[facility] Start: 08-31-2022 End: 09-01-2022 Encounter for general adult medical examination without abnormal findings DR SYED SOTO . Facility:[facility] Start: 08-24-2021 End: 08-24-2021 Emergency department patient visit Syed Soto Facility:[facility] Procedures Date Procedure Procedure Detail Performing Clinician Start: 12-02-2023 Colonoscopy Cl NI LL Start: 08-31-[address] ANJALI SOTO . Comment on above: Performed By: #### [facility] #### [facility] [address] [place] [address] Dr. Deedee Pryor Arthroscopy of knee Cl OG Simple extraction of tooth Jenny estevez LENKA Tonsillectomy Cl ALEXL Vasectomy Cl NILL Immunizations Immunization Date Immunization Notes Care Provider Fa cility 08-29-2021 SARS-CoV-2 (COVID-19 ) mRNA BNT-162b2 vax Cl JOHNSONL [facility] [place] 08-08-2021 SARS-CoV-2 (COVID-19 ) mRNA BNT-162b2 vax Cl NILL [facility] [place] Payers Date Payer Category Payer Self-pay 2021 Unknown [id number] 1965 Unknown [id number] 2.16.84 [id number] 1965 Unknown [id number] 2.16.84 [id number] 1966 Unknown [id number] 2.16.84 [id number] 1966 Unknown [id number] 2.16.84 [id number] 1966 Unknown [id number] 2.16.8 [id number] 1966 Unknown [id number] 2.16.8 [id number] 1966 Unknown [id number] 2.16.8 [id number] 1959 Unknown [id number] Unknown [id number] 2.16.8 [id number] Social History Date Type Detail Facility Start: 11-18-2023 Tobacco smoking status Heavy t obacco smoker (finding) [facility] Tobacco smoking status Smokeless tobacco user within last 30 days [facility] Sex Assigned At Male [facility] Functional Status Date Assessment Result Facility 12-02-2023 Functional Status N/A [facility] 11-18-2023 Functional Status N/A [facility] Clinical Notes 09-23-2022 to 12-05-2023 Note Date & Type Note Facility 12-05-2023 Note [id number] 5#1.00TIFF [facility] 12-02-2023 Evaluation + Plan note Extrac jose from: Title:ANES Post-operative Note - General Author: Adriano Dewitt Jr., DO Date:12/02/23 Plan Transfer/Discharge: Transfer/Discharge Discharge when meets criteria ( From PACU to Ambulatory Surgery Unit, and To home ). Extracted from: Title:ANES Pre-operative Note - Endo Author:Winston fierro Jr. Adriano POSADA Date:12/02/23 Plan [place] [employer] (ASA) physical status classification: Class III. Anesthetic Preoperative Plan: Anesthesia General, and -TIVA. [facility]05-03-2024 NotePatient: TRAY MEZA Age: 58 years Sex: Male : 1965 Associated Diagnoses: None Author: Cl OG MD Subjective no changes to H & [facility]Bucyrus [facility] HospitalComment on above:Result Comment: Electronically Signed By: Cl OG MD\.br\Date and Time Signed: 12/02/23 09:01 [id number] Hospital Discharge instructions Patient Education 12/02/2023 08:18:57 Colonoscopy, Care After Surgery [place] (CUSTOM) Colonoscopy Care After Surgery Please read the instructions outlined below and refer to this sheet in the next few weeks. These discharge instructions provide you with general information on [facility] Your doctor may also give you specific [...] Up Care 11/18/2023 13:29:53 With:Cl OG Address: [address] [place] [address] [place], [address] [place] [id number] Business (1) When:7 to 10 days [facility]04-19-2024 NoteChief Complaint consultation for diarrhea HPI [...] Recorded SARS-CoV-2 (COVID-19) mRNA BNT-162b2 vax 08/08/2021 [facility]edC[facility] HospitalComment on above:Result Comment: Electronically Signed By: Cl OG MD\Date and Time Signed: 11/18/23 13:31 [id number] Note CONSULTATION CONSULTATION DATE: 10/05/2022 TO: Dr. [...] appears to be stable on today's visit.[id number] NotePAIN MANAGEMENT CONSULTATION CONSULTATION DATE: 09/23/2022 TO: [...] on his response to change in medication.[facility] Evaluation + Plan note Future Appointments Appointment Date:12/02/2023 09:30:00 AM Scheduled Provider: Location:[facility] Appointment Type:Surgery [facility] [place] [facility] course Narrative No data available for this section [facility] Discharge instructions No data available for this section [facility] Progress note No data available for this section [facility] Summary Purpose Family History No Family History [...] section and content) DATE CREATED AUTHOR 09/04/2022 [facility] DATE CREATED AUTHOR AUTHOR'S ORGANIZ ATION 11/08/[address] [facility] DATE CREATED AUTHOR AUTHOR'S ORGANIZ ATION 12/18/2023 [facility] Patient Care team informatio n (unrecognized section and content) Personnel Name: Syed Soto MD Address: Address: [address] [place] [address] Personnel Name: Syed Soto MD Address: Address: [address] [place] [address] Personnel Name: Syed Soto MD Address: Address: [address] [place] [address] FOR RECORDS PERTAINING TO PATIENTS WHO ARE [...] BE BASED ON THE PRIMARY CLINICAL RECORDS. [facility] provides no warranty or guarantee of the accuracy or completeness of information in this document.
[2025-03-05 07:31] LABS: Hematocrit 39.4 % (42.0-54.0); Hemoglobin 14.5 g/dL (14.0-18.0); Immature Granulocytes Abs Auto 0.01 10^3/uL (0.00-0.03); Immature Granulocytes Pct Auto 0.3 % (0.0-0.5); Lymphocytes Absolute Auto 1.0 10^3/uL (1.2-3.8); Mean Corpuscular HGB Conc 36.8 g/dL (29.9-35.2); Mean Corpuscular Hemoglobin 33.0 pg (25.9-34.0); Mean Corpuscular Volume 89.7 fL (80.0-94.0); Platelet Count 224 10^3/uL (150-450); Red Blood Count 4.39 10^6/uL (4.70-6.10); White Blood Count 3.6 10^3/uL (4.0-11.0)
[2025-03-05 08:50] LABS: Alanine Aminotransferase 40 U/L (16-63); Albumin Globulin Ratio 1.3; Albumin Level 4.3 g/dL (3.4-5.0); Alkaline Phosphatase 71 U/L (46-116); Anion Gap 13.9; Aspartate Amino Transferase 38 U/L (15-37); Blood Urea Nitrogen 4.0 mg/dL (7.0-18.0); Calcium 8.8 mg/dL (8.5-10.1); Carbon Dioxide 28.9 mmol/L (21.0-32.0); Chloride 91 mmol/L (98-107); Cholesterol 198 mg/dL (<=200); Estimated GFR (African America >60 (>=60 mL/min/1.73m^2); Estimated GFR (Non-African Ame >60 (>=60 mL/min/1.73m^2); Free T3 2.33 pg/mL (2.18-3.98); Globulin 3.3 g/dL; Glucose 78 mg/dL (74-106); HDL Cholesterol 128 mg/dL (40-60); Potassium 4.8 mmol/L (3.5-5.1); Sodium 129 mmol/L (136-145); Thyroid Stimulating Hormone 0.608 uIU/mL (0.358-3.740); Total Protein 7.6 g/dL (6.4-8.2); Triglycerides 73 mg/dL (<=150); Uric Acid 3.0 mg/dL (3.5-7.2); VLDL CHOLESTEROL 14.6 mg/dL
== END 2025-03-05 07:09 | disposition home or self-care (01) ==
LOC: LAB 07:12
PROVIDERS: PCP Family Medicine; Visit Provider Family Medicine
DX: R53.83 Other fatigue (principal); F41.9 Anxiety disorder, unspecified; F10.20 Alcohol dependence, uncomplicated; Z12.5 Encounter for screening for malignant neoplasm of prostate
CPT/HCPCS: 36415; 80053; 80061; 83036; 84436; 84443; 84481; 84550; 85025; G0103